=== PATIENT | female | born 1960 | race Caucasian/White ===

== ENCOUNTER 2020-07-29 06:29 | Outpatient (REF) | payer BC, SELFPAY ==
[2020-07-29 11:29] LABS: Hematocrit 42.7 % (37-47); Hemoglobin 13.9 g/dl (12.0-16.0); Mean Corpuscular HGB Conc 32.6 g/dl (31.0-35.0); Mean Corpuscular Hemoglobin 31.4 pg (27.0-33.0); Mean Corpuscular Volume 96.4 fL (80-98); Mean Platelet Volume 9.8 fL (9.4-12.3); Platelet Count 196 X10*3/uL (160-400); Red Blood Count 4.43 X10*6/uL (4.20-5.50); Red Cell Distribution Width 11.5 % (11.0-16.0); White Blood Count 3.6 X10*3/uL (4.8-10.8)
[2020-07-29 11:37] LABS: Glucose Urine UA NEG (NEG); Leukocyte Esterase Urine NEG (NEG); Nitrite Urine NEG (NEG); PH 5.5 (5.0-8.0); Specific Gravity - Urine >= 1.030 (1.005-1.025); Urine Blood NEG (NEG); Urine Ketones NEG (NEG); Urine Protein NEG (NEG-TRACE)
[2020-07-29 11:39] LABS: Appearance Urine CLEAR; Color Urine YELLOW
[2020-07-29 11:44] LABS: Alanine Aminotransferase 27 U/L (0-31); Albumin Level 4.2 g/dL (3.5-5.0); Alkaline Phosphatase 94 U/L (39-117); Anion Gap 12 (12-20); Aspartate Amino Transferase 23 U/L (5-31); Bilirubin Total 0.8 mg/dL (0.0-1.0); Blood Urea Nitrogen 18 mg/dL (9-16); Calcium 8.6 mg/dL (8.4-10.2); Carbon Dioxide 27 mmol/L (22-29); Chloride 106 mmol/L (96-108); Cholesterol 177 mg/dL; Estimated Glomerular Filt Rate > 60; Glucose Fasting 93 mg/dL (60-99); HDL Cholesterol 86 mg/dL; LDL Cholesterol Calculated 83 mg/dl; Potassium 4.3 mmol/l (3.3-5.1); Sodium 141 mmol/L (135-145); Total Protein 6.5 g/dL (6.5-8.0); Triglycerides 42 mg/dL
[2020-07-29 12:09] LABS: Thyroid Stimulating Hormone 1.14 mIU/mL (0.32-4.0); Vitamin D 25-OH Total 40.7 ng/mL (>30)
== END 2020-07-29 06:30 | disposition home or self-care (01) ==
LOC: HO.HMGCLDS 06:29
PROVIDERS: PCP Internal Medicine; Visit Provider Internal Medicine
DX: Z00.00 Encounter for general adult medical examination without abnormal findings (principal); J45.909 Unspecified asthma, uncomplicated; E78.2 Mixed hyperlipidemia; E55.9 Vitamin D deficiency, unspecified
CPT/HCPCS: 36415; 80053; 80061; 81003; 82306; 84443; 85027

== ENCOUNTER 2020-08-20 09:31 | Outpatient (REF) | payer BC, SELFPAY ==
--- NOTE | 2020-08-20 09:34 | MM_ITS ---
EXAMINATION: MM SCREENING DIGITAL BREAST TOMOSYNTHESIS, BILATERAL CLINICAL INFORMATION: Screening. Asymptomatic. The lifetime risk of breast cancer based on the Tyrer-Cuzick Model is 5%. COMPARISON: Mammography: 07/28/2018, 08/21/2017 TECHNIQUE: Digital breast tomosynthesis is performed in both the craniocaudal and mediolateral oblique views along with computer-aided detection (CAD). Synthesized 2D images are generated from the tomosynthesis. Additional right exaggerated CC view is provided. FINDINGS: There are scattered areas of fibroglandular density (ACR BI-RADS breast composition Category b). There are no significant masses, abnormal calcifications, or other abnormalities. The axilla and skin contours are unremarkable. MM/MM tomosynthesis screening BI IMPRESSION: No mammographic evidence of malignancy. ASSESSMENT: BI-RADS 1: Negative RECOMMENDATION: Routine annual mammography screening. This patient's information was entered into a reminder system with a target due date for their next mammogram.
== END 2020-08-20 09:32 | disposition home or self-care (01) ==
LOC: HO.MAMMO 09:31
PROVIDERS: PCP Internal Medicine; Visit Provider Internal Medicine
DX: Z12.31 Encounter for screening mammogram for malignant neoplasm of breast (principal)
CPT/HCPCS: 77063; 77067

== ENCOUNTER 2021-02-16 11:00 | Outpatient (RCR) | payer BC, SELFPAY ==
--- NOTE | 2021-02-04 11:56 | MHC.PT.EP ---
[facility] [place] Office [place] Office [place] Office [address] Yesi Marquez [address] [phone] F: [phone] F: [phone] F: [phone] F: [phone] Physical Therapy Plan of Care Date of Evaluation: Date of Surgery: NA Diagnosis: Low back pain Assessment: 60 year old female referred for low back pain . Pt reports of having sudden of pain on R SI region about 3 weeks back. She denies any trauma or fall. On PT examination she presented with TTP over R PSIS, altered pelvic symmetry, 3/10 pain in R groin with twisting motion, decreased ROM, decreased muscle strength, altered posture and gait. She would benefit from PT to address the aforementioned impairments so as to increase tolerance to twisting, bending, walking, playing with her grand children, driving and returning to [facility]. Frequency and Duration: The patient will be seen 2/week for 5 weeks Short Term Goals: 1. Pt will have 50% decrease in pain which will increase her tolerance to sitting and bending in 2 weeks. 2. Pt will be able to move her trunk through all planes of motion without pain which will enable her to drive in 3 weeks. [employer] Goals: 1. Pt will demonstrate an increase in muscle strength by 1 grade which will enable her to perform all her ADLS without fear of injuring her back in 4 weeks. 2. Pt will be independent with HEPS for symptom management and maintenance following d/c in 5 weeks. Treatment Plan: Modalities to reduce pain, spasms and effusion. Manual therapy to restore motion and function. Therapeutic exercise to improve strength and flexibility. Neuromuscular re-education for posture and balance. Therapeutic activities to return to functional activities of daily living. Electronically signed by: Diane Farias, PT, DPT Please sign and return to therapist. Thank you for your referral.
--- NOTE | 2021-03-04 12:25 | MHC.PT.DC ---
[facility] [place] Office [place] Office [place] Office [address] Yesi Marquez [address] [phone] F: [phone] F: [phone] F: [phone] F: [phone] Physical Therapy Discharge Report Diagnosis: Low back pain Date of Surgery: NA Date of Evaluation: 02/04/21 Date of Discharge: 03/04/21 Treatments to Date: 3 Cancellations to Date: 0 No Shows to Date: 0 Discharge Status: Achieved Goals Improved Function Independent with HEP Discharge Summary: Andreia completed 3 visits of PT. She was pain free after 3 visits. She was independent with all her HEPs and requested d/c from therapy. She has therefore been d/c from therapy. Electronically signed by: Diane Farias, PT, DPT Please sign and return to therapist. Thank you for your referral.
== END 2021-03-04 12:35 | disposition other institution (70) ==
LOC: HO.PT 11:00
PROVIDERS: PCP Internal Medicine; Visit Provider Internal Medicine
DX: M54.5 Low back pain (principal)
CPT/HCPCS: 97110; 97112; 97140; 97161

== ENCOUNTER 2021-04-19 | Outpatient (REF) | payer BC, SELFPAY | END 2021-04-19 00:01 | disposition home or self-care (01) | LOC: HO.LNP | PROVIDERS: Visit Provider Nurse Practitioner Family | DX: N39.0 Urinary tract infection, site not specified (principal) | CPT/HCPCS: 87086; 87088; 87186 ==

== ENCOUNTER 2021-05-31 11:19 | Outpatient (REF) | payer BC, SELFPAY | END 2021-05-31 11:20 | disposition home or self-care (01) | LOC: HO.LNP 11:19 | PROVIDERS: Visit Provider Hospitalist | DX: R30.0 Dysuria (principal) | CPT/HCPCS: 87086 ==

== ENCOUNTER 2021-06-05 06:52 | Outpatient (REF) | payer BC, SELFPAY ==
[2021-06-05 11:46] LABS: MANUAL DIFF FLAG NO
[2021-06-05 11:55] LABS: Glucose Urine UA NEG (NEG); Leukocyte Esterase Urine NEG (NEG); Specific Gravity - Urine 1.015 (1.005-1.025); Urine Blood NEG (NEG); Urine Ketones NEG (NEG); Urine Protein TRACE MG/DL (NEG-TRACE)
[2021-06-05 12:02] LABS: Basophils Percent Auto 0.4 % (0-2); Eosinophils Absolute Auto 0.1 X10*3/uL (0.0-0.4); Eosinophils Percent Auto 2.1 % (0-4); Hematocrit 42.6 % (37-47); Hemoglobin 14.2 g/dl (12.0-16.0); Lymphocytes Absolute Auto 0.9 X10*3/uL (1.2-4.9); Lymphocytes Percent Auto 30.2 % (20-40); Mean Corpuscular HGB Conc 33.3 g/dl (31.0-35.0); Mean Corpuscular Hemoglobin 31.5 pg (27.0-33.0); Mean Corpuscular Volume 94.5 fL (80-98); Mean Platelet Volume 9.8 fL (9.4-12.3); Monocytes Absolute Auto 0.2 X10*3/uL (0.1-1.2); Monocytes Percent Auto 8.1 % (2-11); Neutrophils Absolute Auto 1.7 X10*3/uL (2.0-8.3); Neutrophils Percent Auto 59.2 % (45-73); Platelet Count 195 X10*3/uL (160-400); Red Blood Count 4.51 X10*6/uL (4.20-5.50); Red Cell Distribution Width 11.5 % (11.0-16.0); White Blood Count 2.9 X10*3/uL (4.8-10.8)
[2021-06-05 12:08] LABS: Appearance Urine HAZY; Color Urine DARK YELLOW; UACC Culture Trigger NO
[2021-06-05 12:09] LABS: Nitrite Urine NEG (NEG)
[2021-06-05 12:36] LABS: Cholesterol 191 mg/dL; HDL Cholesterol 84 mg/dL; LDL Cholesterol Calculated 99 mg/dl; Triglycerides 41 mg/dL
[2021-06-07 08:58] LABS: Folate 15.4 ng/mL (> or = 4.0); Vitamin B12 302 pg/mL (200-900)
== END 2021-06-05 06:53 | disposition home or self-care (01) ==
LOC: HO.HMGCLDS 06:52
PROVIDERS: PCP Internal Medicine; Visit Provider Internal Medicine
DX: R30.0 Dysuria (principal); D70.9 Neutropenia, unspecified; E78.5 Hyperlipidemia, unspecified; M70.60 Trochanteric bursitis, unspecified hip
CPT/HCPCS: 36415; 80061; 81003; 82607; 82746; 85025

== ENCOUNTER 2021-06-14 10:51 | Outpatient (REF) | payer BC, SELFPAY ==
[2021-06-14 14:07] LABS: Appearance Urine CLEAR; Color Urine YELLOW; Glucose Urine UA NEG (NEG); Leukocyte Esterase Urine NEG (NEG); Nitrite Urine NEG (NEG); Urine Blood NEG (NEG); Urine Ketones NEG (NEG); Urine Protein NEG (NEG-TRACE)
== END 2021-06-14 10:52 | disposition home or self-care (01) ==
LOC: HO.HMGCLDS 10:51
PROVIDERS: PCP Internal Medicine; Visit Provider Internal Medicine
DX: N39.0 Urinary tract infection, site not specified (principal)
CPT/HCPCS: 81003

== ENCOUNTER 2021-06-14 14:12 | Outpatient (REF) | payer BC, SELFPAY ==
--- NOTE | ~2021-06-14 | US_ITS ---
EXAMINATION: US RETROPERITONEAL COMPLETE (RENAL) CLINICAL INFORMATION: Hematuria and dysuria. COMPARISON: None TECHNIQUE: Real-time imaging of the kidneys and bladder. FINDINGS: RIGHT KIDNEY: 11 x 5.2 x 6.3 cm (SAG x AP x TRV). The kidney is normal in size, contour, and echogenicity. Renal cortical thickness is normal. No calculi or focal parenchymal lesions. No hydronephrosis. LEFT KIDNEY: 12.3 x 5.8 x 0.3 cm (SAG x AP x TRV). The kidney is normal in size, contour, and echogenicity. Renal cortical thickness is normal. There is a 1 cm cyst in the lower pole. There are 2 stones in the lower pole measuring 4 and 6 mm.. No hydronephrosis. BLADDER: Well distended and normal. Bilateral ureteral jets are demonstrated. Prevoid bladder volume is 400 mL. Postvoid bladder volume is 11 mL. US/US retroperitoneal comp IMPRESSION: Left renal stones. Small left renal cyst. Normal right kidney and bladder.
== END 2021-06-14 14:13 | disposition home or self-care (01) ==
LOC: HO.HMGCX 14:12
PROVIDERS: PCP Internal Medicine; Visit Provider Internal Medicine
DX: R31.9 Hematuria, unspecified (principal); R30.0 Dysuria
CPT/HCPCS: 76770

== ENCOUNTER → 2021-06-28 09:41 | Outpatient (BNV) | payer BC, SELFPAY | PROVIDERS: PCP Internal Medicine; Referring Provider Internal Medicine; Visit Provider Internal Medicine Medical Oncology | DX: D72.819 Decreased white blood cell count, unspecified (principal) | CPT/HCPCS: 99203; 99213 ==

== ENCOUNTER 2021-08-25 06:09 | Outpatient (REF) | payer BC, SELFPAY ==
[2021-08-25 07:44] LABS: Blood Urea Nitrogen 17 mg/dL (9-16); Estimated Glomerular Filt Rate > 60
== END 2021-08-25 06:10 | disposition home or self-care (01) ==
LOC: HO.LAB 06:09
PROVIDERS: PCP Internal Medicine; Visit Provider Urology
DX: R31.0 Gross hematuria (principal)
CPT/HCPCS: 36415; 82565; 84520

== ENCOUNTER 2021-08-25 09:15 | Outpatient (REF) | payer BC, SELFPAY ==
--- NOTE | ~2021-08-25 | CT_ITS ---
EXAMINATION: CT ABDOMEN AND PELVIS WITHOUT AND WITH CONTRAST CLINICAL INFORMATION: Gross hematuria. COMPARISON: Previous renal ultrasound 06/14/2021, MRI of the abdomen 04/23/[address] of the abdomen and pelvis 03/26/2018. TECHNIQUE: Multidetector volumetric imaging was performed of the abdomen and pelvis before and after the IV administration of 85 mL of Omnipaque 350 intravenous contrast. Sagittal and coronal reformatted images were obtained on the technologist's workstation. This CT examination was performed using dose optimization techniques as appropriate, variously including the following: *Automated exposure control *Adjustment of mA and/or kV according to patient size (this includes techniques or standardized protocols for targeted exams where dose is matched to indication/reason for exam; i.e. extremities or head) *Use of iterative reconstruction technique DLP: 858 mGy-cm FINDINGS: LUNG BASES: The visualized lung bases are unremarkable. LIVER, GALLBLADDER, AND BILIARY TREE: The liver is normal in size, shape, and attenuation. No focal hepatic lesion or biliary ductal dilatation is present. The gallbladder has been removed. PANCREAS: Unremarkable. SPLEEN: Unremarkable. ADRENAL GLANDS: Unremarkable. KIDNEYS AND URETERS: The kidneys are normal in size, shape and contour. There are 3 left lower pole renal stones, the largest measures 3 mm. There is a 1 cm cyst in the lower pole of the left kidney. No renal mass or hydronephrosis is seen. There is slight irregularity of the calyces questionable for mild papillary necrosis. The collecting systems are otherwise normal. The ureters are well opacified with excreted contrast and are normal. BLADDER: Unremarkable. GASTROINTESTINAL TRACT: The small and large bowel is unremarkable. The appendix is unremarkable. ABDOMINAL WALL: No significant hernia is appreciated. LYMPH NODES: Normal. VASCULAR: Unremarkable. PELVIC VISCERA: Unremarkable. OSSEOUS STRUCTURES: There are mild degenerative changes of the spine and hip joints. CT/CT abdomen pelvis wo/w con IMPRESSION: Left renal stones. Left renal cyst. Slight irregularity of the renal calyces questionable for mild papillary necrosis. No collecting system filling defect seen. Fleischner guidelines were followed.
[2021-08-25] MEDS: iohexoL 350 MG/ML 100 ML INFUS..BTL IV (11:36)
== END 2021-08-25 09:16 | disposition home or self-care (01) ==
LOC: HO.CT 09:15
PROVIDERS: Visit Provider Physician Assistant Medical
DX: R31.0 Gross hematuria (principal); N20.0 Calculus of kidney; Z90.49 Acquired absence of other specified parts of digestive tract
CPT/HCPCS: 74178; Q9967

== ENCOUNTER 2021-09-23 19:45 | Outpatient (REF) | payer BC, SELFPAY ==
[2021-09-23 19:55] LABS: Appearance Urine CLOUDY; Color Urine YELLOW; Glucose Urine UA 100 MG/DL (NEG); Leukocyte Esterase Urine 2+ (NEG); Nitrite Urine POS (NEG); Specific Gravity - Urine >= 1.030 (1.005-1.025); Urine Blood 3+ (NEG); Urine Ketones 5 MG/DL (NEG); Urine Protein 2+ MG/DL (NEG-TRACE)
[2021-09-23 20:04] LABS: Bacteria Urine 3+ /LPF; RBC Urine TNTC /HPF (0)
== END 2021-09-23 19:46 | disposition home or self-care (01) ==
LOC: HO.LNP 19:45
PROVIDERS: Visit Provider Family Medicine
DX: Z00.00 Encounter for general adult medical examination without abnormal findings (principal); N39.0 Urinary tract infection, site not specified
CPT/HCPCS: 81001; 87086; 87088; 87186

== ENCOUNTER 2021-10-21 06:00 | Outpatient (REF) | payer BC, SELFPAY ==
[2021-10-21 12:02] LABS: Anion Gap 12 (12-20); Blood Urea Nitrogen 17 mg/dL (9-16); Calcium 9.1 mg/dL (8.4-10.2); Carbon Dioxide 26 mmol/L (22-29); Chloride 108 mmol/L (96-108); Estimated Glomerular Filt Rate > 60; Magnesium 2.2 mg/dL (1.6-2.6); Phosphorus 4.3 mg/dL (2.7-4.5); Potassium 4.4 mmol/L (3.3-5.1); Sodium 142 mmol/L (135-145)
[2021-10-21 12:16] LABS: Uric Acid 3.5 mg/dL (2.4-5.7)
[2021-10-22 13:06] LABS: Calcium (PTHI) 8.9 mg/dL (8.6-10.4); PTHI 38 pg/mL (14-64)
== END 2021-10-21 06:01 | disposition home or self-care (01) ==
LOC: HO.HMGCLDS 06:00
PROVIDERS: Visit Provider Urology
DX: N20.0 Calculus of kidney (principal); N20.1 Calculus of ureter
CPT/HCPCS: 36415; 80051; 82310; 82565; 83735; 83970; 84100; 84520; 84550

== ENCOUNTER 2021-10-26 09:13 | Outpatient (REF) | payer BC, SELFPAY ==
--- NOTE | ~2021-10-26 | MM_ITS ---
EXAMINATION: MM SCREENING DIGITAL BREAST TOMOSYNTHESIS, BILATERAL CLINICAL INFORMATION: Screening. Asymptomatic. The lifetime risk of breast cancer based on the Tyrer-Cuzick Model is 11%. COMPARISON: Mammography: 08/20/2020, 07/28/2018, 05/12/2017, 11/07/2015 TECHNIQUE: Digital breast tomosynthesis is performed in both the craniocaudal and mediolateral oblique views along with computer-aided detection (CAD). Synthesized 2D images are generated from the tomosynthesis. FINDINGS: There are scattered areas of fibroglandular density (ACR BI-RADS breast composition Category b). There are no significant masses, abnormal calcifications, or other abnormalities. Parenchymal pattern is similar to prior studies. There is no developing density or architectural abnormality. The axilla and skin contours are unremarkable. No significant changes. MM/MM tomosynthesis screening BI IMPRESSION: No mammographic evidence of malignancy. ASSESSMENT: BI-RADS 1: Negative RECOMMENDATION: Routine annual mammography screening. This patient's information was entered into a reminder system with a target due date for their next mammogram.
== END 2021-10-26 09:14 | disposition home or self-care (01) ==
LOC: HO.MAMMO 09:13
PROVIDERS: PCP Internal Medicine; Visit Provider Internal Medicine
DX: Z12.31 Encounter for screening mammogram for malignant neoplasm of breast (principal)
CPT/HCPCS: 77063; 77067

== ENCOUNTER 2021-12-07 12:25 | Outpatient (REF) | payer BC, SELFPAY ==
--- NOTE | ~2021-12-07 | XR_ITS ---
EXAMINATION: XR HIP, RIGHT CLINICAL INFORMATION: Right hip pain. COMPARISON: Selected images of the CT abdomen and pelvis of 08/25/2021. TECHNIQUE: Two views of the right hip. FINDINGS: Osteoarthritic changes are noted at the right hip joint with narrowing of the medial joint space and mild subarticular irregularity and cystic changes at the hip joint medially as well as small marginal osteophytes along the inferior medial margins of the femoral head and acetabulum. No suspicious lytic or blastic osseous lesions are seen. No evidence of acute fracture or dislocation. XR/XR hip RT min 2V IMPRESSION: [id number] osteoarthritic changes in the medial aspect of the right hip joint. No acute osseous abnormality. Overall, the appearance does not appear to be significantly changed when compared to CT scan of 08/25/2021.
== END 2021-12-07 12:26 | disposition home or self-care (01) ==
LOC: HO.HMGCX 12:25
PROVIDERS: PCP Internal Medicine; Visit Provider Internal Medicine
DX: M25.551 Pain in right hip (principal)
CPT/HCPCS: 73502

== ENCOUNTER 2022-01-11 09:29 | Outpatient (REF) | payer BC, SELFPAY | END 2022-01-11 09:30 | disposition home or self-care (01) | LOC: HO.HMGCLDS 09:29 | PROVIDERS: PCP Internal Medicine; Visit Provider Internal Medicine | DX: E55.9 Vitamin D deficiency, unspecified (principal) | CPT/HCPCS: 36415; 82306 ==

== ENCOUNTER 2022-01-11 10:00 | Outpatient (RCR) | payer BC, SELFPAY ==
--- NOTE | 2021-11-23 10:52 | MHC.PT.EP ---
[facility] [place] Office [place] Office [place] Office [address] Yesi Marquez [address] [phone] F: [phone] F: [phone] F: [phone] F: [phone] Physical Therapy Plan of Care Date of Evaluation: Date of Surgery: Diagnosis: This is a 61 yo female presenting to skilled PT with a script for pain in R hip Assessment: This is a 61 yo female presenting to skilled PT with a script for pain in R hip. Patient comes to PT with a referral from the walk-in clinic reporting R hip pain and decreased function ongoing for about a few weeks now that occurred insidiously. She reports that she has had therapy for this in the past and it was helpful (this was at least a year ago). Pain increases with transfers into standing, bending and twisting. She reports that it feels like her hip is out of the joint or going to come out of the joint . The walk in clinic pulled her leg and provided her with prednisone which has not improved her symptoms as of yet. She also reports that she has a long history of back issues/pain that may contribute to her symptoms. Pain at eval is located R hip/groin. Pain is sharp and achy. Assessment reveals pain that ranges up to an 8/10. She demos decreased hip and RLE ROM, decreased hip and glut as well as core strength, impaired gait pattern with compensatory weight shifting and weight bearing positions, impaired lumbar and hip joint mobility as well as gross functional decline with transfers, ambulating and functional squatting. She is a good candidate for skilled PT 2x/wk for 5wks. Frequency and Duration: The patient will be seen 2x/wk for 5wks Short Term Goals: (in 2 weeks) I in HEP Demo proper functional squat form without cues Demo proper SIJ alignment [facility] Goals: (in 5 wks) Perform sit to stand without pain Demo proper lifting techniques from floor, crib height Improve gross strength to at least 4+/5 Report no pain with getting in/out of car, bending or twisting Treatment Plan: Modalities to reduce pain, spasms and effusion. Manual therapy to restore motion and function. Therapeutic exercise to improve strength and flexibility. Neuromuscular re-education for posture and balance. Therapeutic activities to return to functional activities of daily living. Electronically signed by: Darling Saldaña PT Please sign and return to therapist. Thank you for your referral.
--- NOTE | 2022-02-15 10:14 | MHC.PT.DC ---
[facility] [place] Office [place] Office [place] Office [address] Yesi Marquez [address] [phone] F: [phone] F: [phone] F: [phone] F: [phone] Physical Therapy Discharge Report Diagnosis: This is a 61 yo female presenting to skilled PT with a script for pain in R hip Date of Surgery: Date of Evaluation: 11/23/21 Date of Discharge: 02/15/22 Treatments to Date: 13 Cancellations to Date: 0 No Shows to Date: 0 Discharge Status: Achieved Goals Improved Function Independent with HEP Patient Elected to Stop Discharge Summary: Andreia had an ortho appointment and then went on vacation. She cancelled remaining appointments after that however in general she was doing well and much better. Pain was still greatly improved from initial eval. She occasionally has pulling at the hip but it is tolerable and she is I in her HEP. I kept her chart open for 30 days and then DC'd as we have not heard from her. DC to HEP Electronically signed by: Darling Saldaña, PT Please sign and return to therapist. Thank you for your referral.
== END 2022-02-15 10:14 | disposition home or self-care (01) ==
LOC: HO.PTCHIC 10:00
PROVIDERS: PCP Internal Medicine; Visit Provider Internal Medicine
DX: M25.551 Pain in right hip (principal)
CPT/HCPCS: 97110; 97140; 97162

== ENCOUNTER 2022-06-16 09:47 | Outpatient (REF) | payer BC, SELFPAY ==
--- NOTE | ~2022-06-16 | US_ITS ---
EXAMINATION: US RETROPERITONEAL LIMITED (RENAL ONLY) CLINICAL INFORMATION: Kidney stone. COMPARISON: Renal ultrasound 06/14/2021. TECHNIQUE: Real-time imaging of the kidneys. FINDINGS: RIGHT KIDNEY: 11.2 x 4.5 x 5.0 cm (SAG x AP x TRV). The kidney is normal in size, contour, and echogenicity. Renal cortical thickness is normal. No calculi or focal parenchymal lesions. No hydronephrosis. LEFT KIDNEY: 11.9 x 5.0 x 4.9 cm (SAG x AP x TRV). The kidney is normal in size, contour, and echogenicity. Renal cortical thickness is normal. No hydronephrosis. Benign-appearing 9 mm renal cyst, no imaging follow-up recommended. 4 mm nonobstructing lower pole renal stone similar to prior previously 4 mm. New 3 mm nonobstructing lower pole renal stone. A previously seen larger 6 mm renal stone is no longer identified. US/US renal BI IMPRESSION: Nonobstructing left renal stones, as detailed above, one new from prior and one that was previously seen is no longer identified.
== END 2022-06-16 09:48 | disposition home or self-care (01) ==
LOC: HO.HMGCX 09:47
PROVIDERS: PCP Internal Medicine; Visit Provider Physician Assistant
DX: N20.0 Calculus of kidney (principal)
CPT/HCPCS: 76775

== ENCOUNTER 2022-09-08 08:28 | Outpatient (REF) | payer BC, SELFPAY ==
--- NOTE | ~2022-09-08 | XR_ITS ---
EXAMINATION: XR CHEST CLINICAL INFORMATION: Acute bronchitis. COMPARISON: 10/04/2019 chest radiographs. TECHNIQUE: 2 views of the chest were obtained. FINDINGS: No significant abnormality is noted involving the heart, lungs, mediastinum, bony thorax or soft tissues. XR/XR chest 2V IMPRESSION: No acute cardiopulmonary process.
[2022-09-08 12:27] LABS: Influenza A PCR POSITIVE (Negative); Influenza B PCR NEGATIVE (Negative); Resp Syncy Virus RNA Qual PCR NEGATIVE (Negative); SARS COV2 PCR INHOUSE NEGATIVE (Negative)
== END 2022-09-08 08:29 | disposition home or self-care (01) ==
LOC: HO.HMGCX 08:28
PROVIDERS: PCP Internal Medicine; Visit Provider Internal Medicine
DX: Z20.822 Contact with and (suspected) exposure to COVID-19 (principal); J20.9 Acute bronchitis, unspecified; R09.89 Other specified symptoms and signs involving the circulatory and respiratory systems
CPT/HCPCS: 0241U; 71046

== ENCOUNTER 2022-09-22 06:08 | Outpatient (REF) | payer BC, SELFPAY ==
[2022-09-22 11:12] LABS: MANUAL DIFF FLAG NO
[2022-09-22 11:28] LABS: Basophils Percent Auto 0.5 % (0-2); Eosinophils Absolute Auto 0.1 X10*3/uL (0.0-0.4); Eosinophils Percent Auto 1.8 % (0-4); Hemoglobin 13.8 g/dl (12.0-16.0); Imm Gran Abs Auto 0.02 X10*3/uL (0.00-0.03); Imm Gran Pct Auto 0.5 % (0.0-0.4); Lymphocytes Absolute Auto 0.9 X10*3/uL (1.2-4.9); Mean Corpuscular HGB Conc 31.4 g/dl (31.0-35.0); Mean Corpuscular Hemoglobin 29.9 pg (27.0-33.0); Mean Corpuscular Volume 95.4 fL (80.0-98.0); Mean Platelet Volume 9.7 fL (9.4-12.3); Monocytes Absolute Auto 0.3 X10*3/uL (0.1-1.2); Monocytes Percent Auto 6.8 % (2-11); Neutrophils Absolute Auto 3.1 x10*3/uL (2.0-8.3); Neutrophils Percent Auto 70.4 % (45-73); Platelet Count 193 X10*3/uL (160-400); Red Blood Count 4.61 X10*6/uL (4.20-5.50); Red Cell Distribution Width 11.9 % (11.0-16.0); White Blood Count 4.4 X10*3/uL (4.8-10.8)
[2022-09-22 11:56] LABS: Alanine Aminotransferase 20 U/L (0-31); Albumin Level 3.9 g/dL (3.5-5.0); Alkaline Phosphatase 99 U/L (39-117); Anion Gap 11 (12-20); Aspartate Amino Transferase 20 U/L (5-31); Bilirubin Total 0.7 mg/dL (0.0-1.0); Blood Urea Nitrogen 14 mg/dL (9-16); Calcium 8.9 mg/dL (8.4-10.2); Carbon Dioxide 28 mmol/L (22-29); Chloride 109 mmol/L (96-108); Cholesterol 197 mg/dL; Estimated Glomerular Filt Rate > 60; Glucose Fasting 89 mg/dL (60-99); HDL Cholesterol 83 mg/dL; LDL Cholesterol Calculated 102 mg/dl; Potassium 4.6 mmol/L (3.3-5.1); Sodium 143 mmol/L (135-145); TSH reflex Free T4 1.41 uIU/mL (0.32-4.0); Total Protein 6.1 g/dL (6.5-8.0); Triglycerides 64 mg/dL
[2022-09-22 13:34] LABS: Anion Gap 13 (12-20); Blood Urea Nitrogen 15 mg/dL (9-16); Calcium 8.9 mg/dL (8.4-10.2); Carbon Dioxide 28 mmol/L (22-29); Chloride 108 mmol/L (96-108); Estimated Glomerular Filt Rate > 60; Potassium 4.6 mmol/L (3.3-5.1); Sodium 144 mmol/L (135-145); Uric Acid 4.2 mg/dL (2.4-5.7)
[2022-09-25 13:39] LABS: Calcium (PTHI) 8.8 mg/dL (8.6-10.4); PTHI 49 pg/mL (16-77)
== END 2022-09-22 06:09 | disposition home or self-care (01) ==
LOC: HO.HMGCLDS 06:08
PROVIDERS: Absent Provider Internal Medicine Nephrology; PCP Internal Medicine; Visit Provider Internal Medicine
DX: Z00.00 Encounter for general adult medical examination without abnormal findings (principal); D70.9 Neutropenia, unspecified; E78.5 Hyperlipidemia, unspecified; N20.0 Calculus of kidney
CPT/HCPCS: 36415; 80051; 80053; 80061; 82310; 82565; 83970; 84443; 84520; 84550; 85025

== ENCOUNTER 2022-11-02 09:10 | Outpatient (REF) | payer BC, SELFPAY ==
--- NOTE | ~2022-11-02 | MM_ITS ---
EXAMINATION: MM SCREENING DIGITAL BREAST TOMOSYNTHESIS, BILATERAL CLINICAL INFORMATION: Screening. Asymptomatic. The lifetime risk of breast cancer based on the Tyrer-Cuzick Model is 6%. COMPARISON: Mammography: 10/26/2021, 08/20/2020, 07/28/2018 TECHNIQUE: Digital breast tomosynthesis is performed in both the craniocaudal and mediolateral oblique views along with computer-aided detection (CAD). Synthesized 2D images are generated from the tomosynthesis. Additional right MLO view is provided. FINDINGS: There are scattered areas of fibroglandular density (ACR BI-RADS breast composition Category b). There are no significant masses, abnormal calcifications, or other abnormalities. No architectural abnormality or developing density or significant change from prior studies. The axilla are unremarkable. MM/MM tomosynthesis screening BI IMPRESSION: No mammographic evidence of malignancy. ASSESSMENT: BI-RADS 1: Negative RECOMMENDATION: Routine annual mammography screening. This patient's information was entered into a reminder system with a target due date for their next mammogram.
== END 2022-11-02 09:11 | disposition home or self-care (01) ==
LOC: HO.MAMMO 09:10
PROVIDERS: PCP Internal Medicine; Visit Provider Internal Medicine
DX: Z12.31 Encounter for screening mammogram for malignant neoplasm of breast (principal)
CPT/HCPCS: 77063; 77067

== ENCOUNTER 2022-11-18 14:23 | Outpatient (REF) | payer BC, SELFPAY ==
[2022-11-18 15:08] LABS: Influenza A PCR NEGATIVE (Negative); Influenza B PCR NEGATIVE (Negative); Resp Syncy Virus RNA Qual PCR NEGATIVE (Negative); SARS COV2 PCR INHOUSE NEGATIVE (Negative)
== END 2022-11-18 14:24 | disposition home or self-care (01) ==
LOC: HO.LNP 14:23
PROVIDERS: Visit Provider Internal Medicine
DX: Z20.822 Contact with and (suspected) exposure to COVID-19 (principal); R09.89 Other specified symptoms and signs involving the circulatory and respiratory systems
CPT/HCPCS: 0241U

== ENCOUNTER 2023-04-24 11:49 | Outpatient (REF) | payer BC, SELFPAY ==
[2023-04-24 13:46] LABS: Anion Gap 12 (12-20); Blood Urea Nitrogen 16 mg/dL (9-16); Calcium 9.4 mg/dL (8.4-10.2); Carbon Dioxide 29 mmol/L (22-29); Chloride 106 mmol/L (96-108); Estimated Glomerular Filt Rate > 60; Potassium 4.4 mmol/L (3.3-5.1); Sodium 143 mmol/L (135-145)
== END 2023-04-24 11:50 | disposition home or self-care (01) ==
LOC: HO.LAB 11:49
PROVIDERS: PCP Internal Medicine; Visit Provider Internal Medicine Nephrology
DX: N20.0 Calculus of kidney (principal)
CPT/HCPCS: 36415; 80051; 82310; 82565; 84520

== ENCOUNTER 2023-08-30 12:17 | Outpatient (AMB) | payer BC, SELFPAY ==
--- NOTE | 2023-08-30 12:31 | A.OFFPC_ITS ---
Vital Signs 08/30/23 12:34 Height 5 ft 10 in Weight 192 lb BMI 27.5 BP 120/72 Blood Pressure Location Lt brachial Position Sitting Pulse 70 Pulse Source Pulse Oximeter Pulse Oximetry (%) 96 Oxygen Delivery Method Room Air Intake Visit Reasons: Back issues Intake Note: Pt is here today for a sick visit. Pt c/o lower and upper back pain and R hip pain. Allergies amoxicillin [AMOXICILLIN] Allergy (Severe, Verified 08/30/23 12:38) HIVES clarithromycin Allergy (Severe, Verified 08/30/23 12:38) HIVES erythromycin base [From ERYTHROCIN] Allergy (Severe, Verified 08/30/23 12:38) HIVES ibuprofen [IBUPROFEN] Allergy (Severe, Verified 08/30/23 12:38) ANAPHYLAXIS, difficulty breathing latex [LATEX] Allergy (Severe, Verified 08/30/23 12:38) HIVES levofloxacin [From LEVAQUIN] Allergy (Severe, Verified 08/30/23 12:38) HIVES NSAIDS (Non-Steroidal Anti-Inflamma [NSAIDS (NON-STEROIDAL ANTI-INFLAMMA] Allergy (Severe, Verified 08/30/23 12:38) ANAPHYLAXIS aspirin Allergy (Unknown, Verified 08/30/23 12:38) breathing difficulty azithromycin Allergy (Unknown, Verified 08/30/23 12:38) uncoded codeine [CODEINE] Allergy (Unknown, Verified 08/30/23 12:38) RASH naproxen [Aleve] Allergy (Unknown, Verified 08/30/23 12:38) throat closes up and itch nut - unspecified [NUTS] Allergy (Unknown, Verified 01/26/23 12:52) ANAPHYLAXIS sulfamethoxazole [From BACTRIM] Allergy (Unknown, Verified 08/30/23 12:38) HIVES trimethoprim [From BACTRIM] Allergy (Unknown, Verified 08/30/23 12:38) HIVES arythromycin Allergy (Unknown, Uncoded 08/30/23 12:38) uncoded Medication List - Last Reconciled 08/30/23 by Neida James MD acetaminophen 500 mg PO Q6H PRN albuterol sulfate 90 mcg/actuation 2 puffs PO Q4H PRN albuterol sulfate 1.25 mg (3 mL) inhalation TID 30 days albuterol sulfate 2.5 mg inhalation TID PRN baclofen 10 mg PO BEDTIME budesonide 0.25 mg (2 mL) inhalation BID cetirizine (Zyrtec) 10 mg PO DAILY epinephrine (EpiPen) 0.3 mg (0.3 mL) IM Q10M PRN ergocalciferol (vitamin D2) 1,250 mcg PO QWEEK pravastatin 20 mg PO DAILY prednisone 4 TABL QD X 3 DAYS, THEN 3 TABL QD X 3 DAYS, THEN 2 TABL QD X 3DAYS, THEN1 QD orally daily; Tobacco use date assessed: 08/30/23 Dental Screening Dental Screen Date: 08/30/23 Did you have a dental visit in the last 12 months?: Yes Did you have a dental problem in the last 6 months where you did not have access to dental care?: No Was dental information given to patient?: Patient has dentist HPI Back issues HPI Details Pt presents c/o recurrent LBP and R hip worse worse for the last 2 days after playing soccer with her grandchildren. Patient denies pain radiating to right lower extremity weakness or numbness in extremities or change in bowel or bladder function. Patient has been doing lower back stretching on and off but not regularly. She had physical therapy in the past with good results. Patient has been under lot of stress helping out with her grandchildren and her mother who lives at the [facility] will have melanoma surgery. [facility] Medical History (Updated 08/30/23 @ 13:11 by Neida James MD) Right hip pain Vitamin D deficiency Hematuria Dysuria Lower back pain Trochanteric bursitis Neutropenia Hyperlipidemia FH: cholecystectomy Asthma Anxiety GERD (gastroesophageal reflux disease) Failed back syndrome Surgical History H/O colonoscopy No pertinent past surgical history Family History Father CVD (cardiovascular disease) Diabetes mellitus Hx of CABG Mother HTN (hypertension) Hyperlipidemia Unknown family medical history Social History Household Members: Spouse Housing: House Are you a primary care process manager to a significant other at home: No Do you presently have visiting nurse or other home services: No Alcohol intake: current Alcohol intake frequency: holidays/special occasions only Patient Tobacco Use Status: Never used Tobacco e-Cigarette/Vaping Use: Never Used service: No Current occupational status: retired Cognitive needs: No Hearing needs: No Vision needs: Yes Questionnaire Thrive Questionnaire Date Thrive assessed: 11/22/22 YULIA-7 AMB Questionnaire YULIA-7 Date YULIA - 7 assessed: 11/22/22 Source: Developed by Drs. Tu Lu, Nazia Brand, Dean Turner and colleagues, with an educational chapin from [employer]. Review of Systems Const All systems reviewed & are unremarkable except as noted in HPI and below Reports no additional complaints Eyes Reports no additional complaints ENT Reports no additional complaints Card Reports no additional complaints Resp Reports no additional complaints GI Reports no additional complaints Physical exam (Primary Care) Vital Signs: Last Vital Signs Pulse 70 08/30/23 12:34 BP 120/72 08/30/23 12:34 Pulse Ox 96 08/30/23 12:34 Oxygen Delivery Method Room Air 08/30/23 12:34 BMI result Body Mass Index 27.5 Tobacco/Smoking Status: Tobacco use Status Tobacco use date assessed 08/30/23 08/30/23 12:39 Patient Tobacco Use Status Never used Tobacco 08/30/23 12:39 e-Cigarette/Vaping Use Never Used 08/30/23 12:31 Thrive Assessment: Date of Thrive Assessment Date Thrive assessed 11/22/22 08/30/23 12:31 HENMT Head: Yes normal to inspection Eyes General: appearance normal, both eyes and all related structures Neck Neck: Yes supple Resp Effort & Inspection: normal respiratory effort Auscultation: clear to auscultation bilaterally Cardio Rhythm: regular rhythm Heart sounds: S1 normal heart sound present and S2 normal heart sound present Back/Spine/Pelvis Other: Paraspinal tenderness left more than right in the lower lumbar region, SI joint tenderness left more than right, slightly decreased range of motion of the right hip, motor strength 5/5 bilaterally deep tendon reflexes 2+ bilaterally Assessment and Plan Assessment & Plan (1) Chronic bilateral low back pain: Code(s): M54.50 - Low back pain, unspecified; G89.29 - Other chronic pain Plan: Prednisone taper and baclofen are prescribed , patient will schedule an appointment with physical therapy closer to home (2) Right hip pain: Code(s): M25.551 - Pain in right hip Plan: As above Orders: Orders PT Evaluation and Treatment Today G89.29 - Other chronic pain, M25.551 - Pain in right hip, M54.50 - Low back pain, unspecified Medications: New prednisone 4 TABL QD X 3 DAYS, THEN 3 TABL QD X 3 DAYS, THEN 2 TABL QD X 3DAYS, THEN1 QD orally daily; 30 tabs 0RF baclofen 10 mg PO BEDTIME 20 tabs 0RF Coding Level of Care Code Est Pt Level 3 (67056) Diagnoses Chronic bilateral low back pain M54.50; G89.29 Right hip pain M25.551
[2023-08-30 12:34] VITALS: BP 120/72; PULSE 70; O2SAT 96; BMI 27.5
== END 2023-08-30 13:26 | disposition home or self-care (01) ==
PROVIDERS: PCP Internal Medicine; Visit Provider Internal Medicine
DX: M54.50 Low back pain, unspecified (principal); G89.29 Other chronic pain; M25.551 Pain in right hip
CPT/HCPCS: 99213

== ENCOUNTER 2023-10-03 12:41 | Outpatient (AMB) | payer BC, SELFPAY ==
[2023-10-03 12:51] VITALS: BP 118/72; PULSE 69; O2SAT 99; BMI 28.6
--- NOTE | 2023-10-03 12:51 | A.OFFPC_ITS ---
Vital Signs 10/03/23 12:51 Height 5 ft 10 in Weight 199 lb BMI 28.6 BP 118/72 Blood Pressure Location Lt brachial Position Sitting Pulse 69 Pulse Source Pulse Oximeter Pulse Oximetry (%) 99 Oxygen Delivery Method Room Air Intake Visit Reasons: Annual PE Intake Note: Pt is here today for PE. Allergies amoxicillin [AMOXICILLIN] Allergy (Severe, Verified 10/03/23 12:54) HIVES clarithromycin Allergy (Severe, Verified 10/03/23 12:54) HIVES erythromycin base [From ERYTHROCIN] Allergy (Severe, Verified 10/03/23 12:54) HIVES ibuprofen [IBUPROFEN] Allergy (Severe, Verified 10/03/23 12:54) ANAPHYLAXIS, difficulty breathing latex [LATEX] Allergy (Severe, Verified 10/03/23 12:54) HIVES levofloxacin [From LEVAQUIN] Allergy (Severe, Verified 10/03/23 12:54) HIVES NSAIDS (Non-Steroidal Anti-Inflamma [NSAIDS (NON-STEROIDAL ANTI-INFLAMMA] Allergy (Severe, Verified 10/03/23 12:54) ANAPHYLAXIS aspirin Allergy (Unknown, Verified 10/03/23 12:54) breathing difficulty azithromycin Allergy (Unknown, Verified 10/03/23 12:54) uncoded codeine [CODEINE] Allergy (Unknown, Verified 10/03/23 12:54) RASH naproxen [Aleve] Allergy (Unknown, Verified 10/03/23 12:54) throat closes up and itch nut - unspecified [NUTS] Allergy (Unknown, Verified 10/03/23 12:54) ANAPHYLAXIS sulfamethoxazole [From BACTRIM] Allergy (Unknown, Verified 10/03/23 12:54) HIVES trimethoprim [From BACTRIM] Allergy (Unknown, Verified 10/03/23 12:54) HIVES arythromycin Allergy (Unknown, Uncoded 10/03/23 12:54) uncoded Medication List - Last Reconciled 10/03/23 by Neida James MD acetaminophen 500 mg PO Q6H PRN albuterol sulfate 90 mcg/actuation 2 puffs PO Q4H PRN albuterol sulfate 1.25 mg (3 mL) inhalation TID 30 days albuterol sulfate 2.5 mg inhalation TID PRN baclofen 10 mg PO BEDTIME budesonide 0.25 mg (2 mL) inhalation BID cetirizine (Zyrtec) 10 mg PO DAILY epinephrine (EpiPen) 0.3 mg (0.3 mL) IM Q10M PRN ergocalciferol (vitamin D2) 1,250 mcg PO QWEEK pravastatin 20 mg PO DAILY Tobacco use date assessed: 10/03/23 Dental Screening Dental Screen Date: 10/03/23 Did you have a dental visit in the last 12 months?: Yes Did you have a dental problem in the last 6 months where you did not have access to dental care?: No Was dental information given to patient?: Patient has dentist HPI Annual PE HPI Details [facility] Medical History Right hip pain Vitamin D deficiency Hematuria Dysuria Lower back pain Trochanteric bursitis Neutropenia Hyperlipidemia FH: cholecystectomy Asthma Anxiety GERD (gastroesophageal reflux disease) Failed back syndrome Surgical History H/O colonoscopy No pertinent past surgical history Family History Father CVD (cardiovascular disease) Diabetes mellitus Hx of CABG Mother HTN (hypertension) Hyperlipidemia Unknown family medical history Social History Household Members: Spouse Housing: House Are you a primary livestock caretaker to a significant other at home: No Do you presently have visiting nurse or other home services: No Alcohol intake: current Alcohol intake frequency: holidays/special occasions only Patient Tobacco Use Status: Never used Tobacco e-Cigarette/Vaping Use: Never Used service: No Current occupational status: retired Cognitive needs: No Hearing needs: No Vision needs: Yes Questionnaire PHQ-9 Over the last 2 weeks, how often have you been bothered by any of the following problems? 1. Little interest or pleasure in doing things: not at all 2. Feeling down, depressed, or hopeless: not at all 3. Trouble falling or staying asleep, or sleeping too much: not at all 4. Feeling tired or having little energy: not at all 5. Poor appetite or overeating: not at all 6. Feeling bad about yourself - or that you are a failure or have let yourself or your family down: not at all 7. Trouble concentrating on things, such as reading the newspaper or watching television: not at all 8. Moving or speaking so slowly that other people could have noticed. Or the opposite - being so fidgety or restless that you have been moving around a lot more than usual: not at all 9. Thoughts that you would be better off or of hurting yourself in some way: not at all Total score: 0 Depression Screening Interpretation: Negative Depression Screening Done: Yes Source: Developed by Drs. Tu Lu, Nazia Brand, Dean Turner and colleagues, with an educational chapin from [employer]. Thrive Questionnaire Date Thrive assessed: 10/03/23 I am a: Patient What is your living situation today?: I have a steady place to live Within the past 12 months, did the food you bought not last and you didn't have the money to get more?: Never true Within the past 12 months, did you worry whether your food would run out before you got money to buy more?: Never true Do you have trouble paying for medicines?: No Do you have trouble getting transportation to medical appointments?: No Do you have trouble paying your heating and electricity bill?: No Do you have trouble taking care of your child, family member or friend?: No Do you have trouble with day-to-day activities such as bathing, preparing meals, shopping, managing finances, etc.?: No Are you currently unemployed and looking for a job?: No Are you interested in more education?: No Please select the resources that you would like help with: None Currently or been in a relationship where the following occur: no concerns reported AUDIT C Alcohol Use Questionnaire (AUDIT-C) 1. How often do you have a drink containing alcohol?: 2-4 times a month 2. How many drinks containing alcohol do you have on a typical day when you are drinking?: 1 or 2 3. How often do you have six or more drinks on one occasion?: Never Total Score: 2 YULIA-7 AMB Questionnaire YULIA-7 Date YULIA - 7 assessed: 10/03/23 Feeling nervous, anxious, or on edge: 1 = Several days Not being able to stop or control worryin = Several days Worrying too much about different things: 1 = Several days Trouble relaxin = Several days Being so restless that it is hard to sit still: 1 = Several days Becoming easily annoyed or irritable: 0 = Not at all Feeling afraid as if something awful might happen: 0 = Not at all Total YULIA-7 score (0-4 normal; 5-9 mild; 10-14 moderate; 15-21 severe): 5 Source: Developed by Drs. Tu Lu, Nazia Brand, Dean Turner and colleagues, with an educational chapin from [employer]. Review of Systems Const All systems reviewed & are unremarkable except as noted in HPI and below Reports no additional complaints Eyes Reports no additional complaints ENT Reports no additional complaints Card Reports no additional complaints Resp Reports no additional complaints GI Reports no additional complaints Reports no additional complaints Physical exam (Primary Care) Vital Signs: Last Vital Signs Pulse 69 10/03/23 12:51 BP 118/72 10/03/23 12:51 Pulse Ox 99 10/03/23 12:51 Oxygen Delivery Method Room Air 10/03/23 12:51 BMI result Body Mass Index 28.6 Tobacco/Smoking Status: Tobacco use Status Tobacco use date assessed 10/03/23 10/03/23 12:57 Patient Tobacco Use Status Never used Tobacco 10/03/23 12:57 e-Cigarette/Vaping Use Never Used 10/03/23 12:57 PHQ-9: PHQ-9 Score PHQ-9: Total score 0 10/03/23 13:59 Depression Screening Interpretation: Negative Thrive Assessment: Date of Thrive Assessment Date Thrive assessed 10/03/23 10/03/23 13:59 Currently or been in a relationship where the following occur: no concerns repor perfecto Const General: no acute distress HENMT Head: Yes normal to inspection Face and sinus: Yes normal facial exam Eyes General: appearance normal, both eyes and all related structures Neck Neck: Yes no lymphadenopathy and Yes supple Resp Effort & Inspection: normal respiratory effort Auscultation: clear to auscultation bilaterally Cardio Rhythm: regular rhythm Heart sounds: S1 normal heart sound present and S2 normal heart sound present GI Inspection: Yes normal to inspection Palpation (GI): Soft to palpation Percussion: Yes normal to percussion Auscultation: normal bowel sounds Assessment and Plan Assessment & Plan (1) Annual physical exam: Code(s): Z00.00 - Encounter for general adult medical examination without abnormal findings Plan: Well-balanced diet and physical activity discussed with the patient. She is up-to-date with the mammogram colonoscopy and Pap smear by window decorator (2) Vitamin D deficiency: Code(s): E55.9 - Vitamin D deficiency, unspecified (3) Hyperlipidemia: Code(s): E78.5 - Hyperlipidemia, unspecified Orders: Orders Vitamin D 25-OH Total Today E55.9 - Vitamin D deficiency, unspecified, Z00.00 - Encounter for general adult medical examination without abnormal findings Comprehensive Echo. Panel Fast 365 Days E78.5 - Hyperlipidemia, unspecified, Z00.00 - Encounter for general adult medical examination without abnormal findings Complete Blood Count Auto Diff 365 Days E78.5 - Hyperlipidemia, unspecified, Z00.00 - Encounter for general adult medical examination without abnormal findings Comprehensive Echo. Panel Fast Today E55.9 - Vitamin D deficiency, unspecified, Z00.00 - Encounter for general adult medical examination without abnormal findings Lipid Panel Today E55.9 - Vitamin D deficiency, unspecified, Z00.00 - Encounter for general adult medical examination without abnormal findings Complete Blood Count Auto Diff Today E55.9 - Vitamin D deficiency, unspecified, Z00.00 - Encounter for general adult medical examination without abnormal findings TSH reflex Free T4 Today E55.9 - Vitamin D deficiency, unspecified, Z00.00 - Encounter for general adult medical examination without abnormal findings Lipid Panel 365 Days E78.5 - Hyperlipidemia, unspecified, Z00.00 - Encounter for general adult medical examination without abnormal findings Coding Level of Care Code New Pt Prev Care 40-64y(83829) Diagnoses Annual physical exam Z00.00 Vitamin D deficiency E55.9 Hyperlipidemia E78.5
== END 2023-10-03 14:46 | disposition home or self-care (01) ==
PROVIDERS: PCP Internal Medicine; Visit Provider Internal Medicine
DX: Z00.00 Encounter for general adult medical examination without abnormal findings (principal); E55.9 Vitamin D deficiency, unspecified; E78.5 Hyperlipidemia, unspecified
CPT/HCPCS: 99386; 99396

== ENCOUNTER 2023-10-04 06:30 | Outpatient (REF) | payer BC, SELFPAY ==
[2023-10-04 11:57] LABS: MANUAL DIFF FLAG NO
[2023-10-04 12:11] LABS: Basophils Percent Auto 0.5 % (0-2); Eosinophils Absolute Auto 0.1 X10*3/uL (0.0-0.4); Eosinophils Percent Auto 3.2 % (0-4); Hematocrit 45.8 % (37.0-47.0); Hemoglobin 14.7 g/dl (12.0-16.0); Imm Gran Abs Auto 0.01 X10*3/uL (0.00-0.03); Imm Gran Pct Auto 0.3 % (0.0-0.4); Lymphocytes Percent Auto 25.4 % (20-40); Mean Corpuscular HGB Conc 32.1 g/dl (31.0-35.0); Mean Corpuscular Hemoglobin 30.7 pg (27.0-33.0); Mean Corpuscular Volume 95.6 fL (80.0-98.0); Mean Platelet Volume 9.4 fL (9.4-12.3); Monocytes Absolute Auto 0.3 X10*3/uL (0.1-1.2); Monocytes Percent Auto 7.9 % (2-11); Neutrophils Absolute Auto 2.4 x10*3/uL (2.0-8.3); Neutrophils Percent Auto 62.7 % (45-73); Platelet Count 260 X10*3/uL (160-400); Red Blood Count 4.79 X10*6/uL (4.20-5.50); Red Cell Distribution Width 11.9 % (11.0-16.0); White Blood Count 3.8 X10*3/uL (4.8-10.8)
[2023-10-04 13:20] LABS: Alanine Aminotransferase 21 U/L (0-31); Alkaline Phosphatase 92 U/L (39-117); Anion Gap 10 (12-20); Aspartate Amino Transferase 22 U/L (5-31); Bilirubin Total 0.7 mg/dL (0.0-1.0); Blood Urea Nitrogen 19 mg/dL (9-16); Calcium 9.2 mg/dL (8.4-10.2); Carbon Dioxide 29 mmol/L (22-29); Chloride 109 mmol/L (96-108); Cholesterol 229 mg/dL (<200); Estimated Glomerular Filt Rate > 60; Glucose Fasting 86 mg/dL (60-99); HDL Cholesterol 83 mg/dL (>40); LDL Cholesterol Calculated 131 mg/dL (<100); Potassium 4.5 mmol/L (3.3-5.1); Sodium 143 mmol/L (135-145); TSH reflex Free T4 1.14 uIU/mL (0.32-4.0); Total Protein 6.8 g/dL (6.5-8.0); Triglycerides 77 mg/dL (<150); Vitamin D 25-OH Total 42.1 ng/mL (>30)
== END 2023-10-04 06:31 | disposition home or self-care (01) ==
LOC: HO.HMGCLDS 06:30
PROVIDERS: PCP Internal Medicine; Visit Provider Internal Medicine
DX: Z00.00 Encounter for general adult medical examination without abnormal findings (principal); E55.9 Vitamin D deficiency, unspecified
CPT/HCPCS: 36415; 80053; 80061; 82306; 84443; 85025

== ENCOUNTER 2023-11-06 09:52 | Outpatient (REF) | payer BC, SELFPAY | END 2023-11-06 09:53 | disposition home or self-care (01) | LOC: HO.MAMMO 09:52 | PROVIDERS: PCP Internal Medicine; Visit Provider Internal Medicine | DX: Z12.31 Encounter for screening mammogram for malignant neoplasm of breast (principal) | CPT/HCPCS: 77063; 77067 ==

== ENCOUNTER → 2023-11-06 10:15 | Outpatient (BNV) | payer BC, SELFPAY | PROVIDERS: PCP Internal Medicine; Visit Provider Radiology Diagnostic Radiology | DX: Z12.31 Encounter for screening mammogram for malignant neoplasm of breast (principal) | CPT/HCPCS: 77063; 77067 ==

== ENCOUNTER 2023-11-16 09:12 | Outpatient (REF) | payer BC, SELFPAY ==
--- NOTE | ~2023-11-16 | XR_ITS ---
EXAMINATION: 1. RADIOGRAPHS LUMBAR SPINE 2. RADIOGRAPHS RIGHT HIP CLINICAL INFORMATION: Low back and right hip pain COMPARISON: Right hip x-rays December 07, [address] abdomen pelvis December 23, 2020 TECHNIQUE: 3 views of the lumbar spine and 2 views of the right hip were obtained. FINDINGS: Lumbar spine: 5 nonrib-bearing lumbar vertebral bodies are visualized. Alignment is within normal limits. Lumbar vertebral body heights are maintained. There is mild narrowing of the L4/5 and L5/S1 disc space heights. Tiny osteophytes are scattered throughout the lumbar spine. Right hip: Pelvic ring is intact. Sacroiliac joints are symmetric. Visualized portion of the proximal right femur demonstrate no fracture. Right femoral head is well-seated within the acetabulum. There is mild narrowing of the right femoral acetabular joint space. Tiny osteophytes noted of the femoral head and acetabulum. XR/XR hip RT w PEL1V IMPRESSION: 1. Mild degenerative changes of the lumbar spine without compression deformity. 2. Mild degenerative changes of the right hip without fracture or dislocation.
--- NOTE | ~2023-11-16 | XR_ITS ---
EXAMINATION: 1. RADIOGRAPHS LUMBAR SPINE 2. RADIOGRAPHS RIGHT HIP CLINICAL INFORMATION: Low back and right hip pain COMPARISON: Right hip x-rays December 07, [address] abdomen pelvis December 23, 2020 TECHNIQUE: 3 views of the lumbar spine and 2 views of the right hip were obtained. FINDINGS: Lumbar spine: 5 nonrib-bearing lumbar vertebral bodies are visualized. Alignment is within normal limits. Lumbar vertebral body heights are maintained. There is mild narrowing of the L4/5 and L5/S1 disc space heights. Tiny osteophytes are scattered throughout the lumbar spine. Right hip: Pelvic ring is intact. Sacroiliac joints are symmetric. Visualized portion of the proximal right femur demonstrate no fracture. Right femoral head is well-seated within the acetabulum. There is mild narrowing of the right femoral acetabular joint space. Tiny osteophytes noted of the femoral head and acetabulum. XR/XR lumbar spine 2-3V IMPRESSION: 1. Mild degenerative changes of the lumbar spine without compression deformity. 2. Mild degenerative changes of the right hip without fracture or dislocation.
== END 2023-11-16 09:13 | disposition home or self-care (01) ==
LOC: HO.HMGCX 09:12
PROVIDERS: PCP Internal Medicine; Visit Provider Internal Medicine
DX: M54.50 Low back pain, unspecified (principal); M25.551 Pain in right hip
CPT/HCPCS: 72100; 73502

== ENCOUNTER 2023-11-17 08:54 | Outpatient (AMB) | payer BC, SELFPAY ==
[2023-11-17 09:24] VITALS: BP 140/90; PULSE 71; TEMP 36.5; O2SAT 96; BMI 28.6
--- NOTE | 2023-11-17 09:24 | MHC.OFFWIV ---
Intake Vital Signs 11/17/23 09:24 Height 5 ft 10 in Weight 199 lb BMI 28.6 BP 140/90 H Blood Pressure Location Lt brachial Position Sitting Pulse 71 Pulse Source Pulse Oximeter Temp 97.7 F Temp Source Temporal Artery Scan Pulse Oximetry (%) 96 Oxygen Delivery Method Room Air Intake Visit Reasons: EP back pain threw it out today Intake Note: pt is here today for back pain threw it out today Patient Tobacco Use Status: Never used Tobacco Allergies amoxicillin [AMOXICILLIN] Allergy (Severe, Verified 11/17/23 09:25) HIVES clarithromycin Allergy (Severe, Verified 11/17/23:25) HIVES erythromycin base [From ERYTHROCIN] Allergy (Severe, Verified 11/17/23:) HIVES ibuprofen [IBUPROFEN] Allergy (Severe, Verified 11/17/23) ANAPHYLAXIS, difficulty breathing latex [LATEX] Allergy (Severe, Verified 11/17/23:) HIVES levofloxacin [From LEVAQUIN] Allergy (Severe, Verified 11/17/23:) HIVES NSAIDS (Non-Steroidal Anti-Inflamma [NSAIDS (NON-STEROIDAL ANTI-INFLAMMA] Allergy (Severe, Verified 11/17/23 09:25) ANAPHYLAXIS aspirin Allergy (Unknown, Verified 11/17/23 09:25) breathing difficulty azithromycin Allergy (Unknown, Verified 11/17/23:) uncoded codeine [CODEINE] Allergy (Unknown, Verified 11/17/23:25) RASH naproxen [Aleve] Allergy (Unknown, Verified 11/17/23 09:25) throat closes up and itch nut - unspecified [NUTS] Allergy (Unknown, Verified 11/17/23:25) ANAPHYLAXIS sulfamethoxazole [From BACTRIM] Allergy (Unknown, Verified 11/17/23:25) HIVES trimethoprim [From BACTRIM] Allergy (Unknown, Verified 11/17/23 09:25) HIVES arythromycin Allergy (Unknown, Uncoded 10/03/23 12:54) uncoded Do you need a note to return to daycare/school/sports/work: No HPI HPI Comments History of Present Illness Details 63 y/o female patient who presents to walk in clinic with c/o Lower back pain. This is a chronic issue, and she has been receiving PT. Pain started yesterday when she went to the mall for a walk/exercise. Reports Spams radiating down to her lower extremities. Denies bowel or bladder issues. She has been putting heat/cold at home and taking Acetaminophen with no relief. [facility] Medical History Right hip pain Vitamin D deficiency Hematuria Dysuria Lower back pain Trochanteric bursitis Neutropenia Hyperlipidemia FH: cholecystectomy Asthma Anxiety GERD (gastroesophageal reflux disease) Failed back syndrome Surgical History H/O colonoscopy No pertinent past surgical history Family History Father CVD (cardiovascular disease) Diabetes mellitus Hx of CABG Mother HTN (hypertension) Hyperlipidemia Unknown family medical history Social History Household Members: Spouse Housing: House Are you a primary complex care nurse practitioner to a significant other at home: No Do you presently have visiting nurse or other home services: No Alcohol intake: current Alcohol intake frequency: holidays/special occasions only Patient Tobacco Use Status: Never used Tobacco e-Cigarette/Vaping Use: Never Used service: No Current occupational status: retired Cognitive needs: No Hearing needs: No Vision needs: Yes Review of Systems Const All systems reviewed & are unremarkable except as noted in HPI and below Physical Exam Vital Signs: Last Vital Signs Temp 97.7 F 11/17/23 09:24 Pulse 71 11/17/23 09:24 BP 140/90 H 11/17/23 09:24 Pulse Ox 96 11/17/23 09:24 Oxygen Delivery Method Room Air 11/17/23 09:24 BMI result Body Mass Index 28.6 Const Orientation/consciousness: patient oriented x3 General: Yes no CVA tenderness Back/Spine/Pelvis Back: no CVA tenderness Cervical Spine: cervical ROM normal Thoracic/Lumbar Spine: thoracic and lumbar spine normal to inspection and thoraco-lumbar ROM normal Pelvis: no pain with anterior-posterior compression Neuro General: patient oriented x3 Gait exam (Neuro): Normal gait present Motor exam (neuro): 5/5 motor strength present throughout Psych Affect: Labile affect present and Anxious affect present Assessment & Plan Assessment & Plan (1) Chronic bilateral low back pain: Code(s): M54.50 - Low back pain, unspecified; G89.29 - Other chronic pain Qualifiers: Sciatica presence: without sciatica Qualified Code(s): M54.50 - Low back pain, unspecified; G89.29 - Other chronic pain Plan: - Continue with PT - Recomm referral to Ortho/Spine - Heat/cold therapy - Low impact exercise. - F/U with PCP. Medications: Refilled baclofen 10 mg PO BEDTIME 10 tabs 0RF G89.29 - Other chronic pain, M54.50 - Low back pain, unspecified Coding Level of Care Code Est Pt Level 3 (90592) Diagnoses Chronic bilateral low back pain without sciatica M54.50; G89.29 Sciatica presence: without sciatica Time Spent (min) 15
== END 2023-11-17 10:12 | disposition home or self-care (01) ==
PROVIDERS: PCP Internal Medicine; Visit Provider Nurse Practitioner Family
DX: M54.50 Low back pain, unspecified (principal); G89.29 Other chronic pain
CPT/HCPCS: 99213

== ENCOUNTER 2023-12-27 07:20 | Day surgery (SDC) | payer BC, SELFPAY ==
[2023-12-25 10:51] VITALS: BMI 26.0
[2023-12-27 07:39] VITALS: BMI 27.5
[2023-12-27 08:02] VITALS: BP 129/71; PULSE 68; RESP 16; TEMP 35.8; O2SAT 97
[2023-12-27] MEDS: Lactated Ringers 1,000 ML 80 ML IVCONT (08:04)
--- NOTE | 2023-12-27 08:04 | P.CONAN_ITS ---
[facility] Active Problems Active Problems: All Active Problems (Updated 12/25/23 @ 10:37 by Lilly Kowalski RN) Chronic bilateral low back pain (Acute) Bronchitis (Acute) Asthma exacerbation (Acute) Sore throat (Acute) Normal pelvic exam (Acute) Postmenopausal (Acute) Annual physical exam (Acute) Acute bronchitis (Acute) Upper respiratory tract infection (Acute) Leukopenia (Acute) Dysuria (Acute) UTI (urinary tract infection) (Acute) Somatic dysfunction of right sacroiliac joint (Acute) Right hip pain (Acute) Asthma (Acute) Vitamin D deficiency (Acute) Hematuria (Acute) Dysuria (Acute) Lower back pain (Acute) Trochanteric bursitis (Acute) Neutropenia (Acute) Hyperlipidemia (Acute) Past Medical History Medical History Kidney stones Vitamin D deficiency Right hip pain Hematuria Dysuria Lower back pain Trochanteric bursitis Neutropenia Hyperlipidemia FH: cholecystectomy Asthma Anxiety GERD (gastroesophageal reflux disease) Failed back syndrome Family History Family History Father CVD (cardiovascular disease) Diabetes mellitus Hx of CABG Mother HTN (hypertension) Hyperlipidemia Unknown family medical history Family history of problems with anesthesia: No Surgical History Surgical History Hx of tonsillectomy Hx of cervical spine surgery History of ERCP History of esophagogastroduodenoscopy (EGD) H/O colonoscopy No pertinent past surgical history History of Problems with Anesthesia: No Social History Social History Household Members: Spouse Housing: House Are you a primary careers adviser to a significant other at home: No Do you presently have visiting nurse or other home services: No Alcohol intake: current Alcohol intake frequency: holidays/special occasions only Patient Tobacco Use Status: Never used Tobacco e-Cigarette/Vaping Use: Never Used Use of substances other than those prescribed or required for medical reasons: No Are you DNR?: No Advance Directives: No Advance Directives Information Provided: Yes service: No Current occupational status: retired Cognitive needs: No Hearing needs: No Vision needs: Yes Meds Allergies Allergy/AdvReac Type Severity Reaction Status Date / Time amoxicillin [AMOXICILLIN] Allergy Severe HIVES Verified 12/27/23 07:45 clarithromycin Allergy Severe HIVES Verified 12/27/23 07:45 erythromycin base Allergy Severe HIVES Verified 12/27/23 07:45 [From ERYTHROCIN] ibuprofen [IBUPROFEN] Allergy Severe ANAPHYLAXIS, Verified 12/27/23 07:45 difficulty breathing latex [LATEX] Allergy Severe HIVES Verified 12/27/23 07:45 levofloxacin [From LEVAQUIN] Allergy Severe HIVES Verified 12/27/23 07:45 NSAIDS (Non-Steroidal Allergy Severe ANAPHYLAXIS Verified 12/27/23 07:45 Anti-Inflamma [NSAIDS (NON-STEROIDAL ANTI-INFLAMMA] aspirin Allergy Unknown breathing Verified 12/27/23 07:45 difficulty azithromycin Allergy Unknown uncoded Verified 12/27/23 07:45 codeine [CODEINE] Allergy Unknown RASH Verified 12/27/23 07:45 naproxen [Aleve] Allergy Unknown throat Verified 11/17/23 09:25 closes up and itch nut - unspecified [NUTS] Allergy Unknown ANAPHYLAXIS Verified 11/17/23 09:25 sulfamethoxazole Allergy Unknown HIVES Verified 11/17/23 09:25 [From BACTRIM] trimethoprim [From BACTRIM] Allergy Unknown HIVES Verified 11/17/23 09:25 arythromycin Allergy Unknown uncoded Uncoded 10/03/23 12:54 Active Medications: Current Medications Lactated Ringer's (Lr) 1,000 mls @ 80 mls/hr IVCONT .[id number] CHUCKY Last Admin: 12/27/23 08:04 Dose: 80 mls/hr Sodium Biphosphate/Sodium Phosphate (Sodium Phosphate,Tillman-Dibasic 133 Ml Enema) 133 ml MI ONCE PRN PRN Reason: Poor Colonoscopy Prep Results Home Medications Medication Instructions Recorded Confirmed Last Taken Type albuterol sulfate 90 mcg/actuation 2 puff PO Q4H PRN muscle spasm 08/30/21 12/25/23 Unknown History aerosol inhaler cetirizine 10 mg tablet (Zyrtec) 10 mg PO DAILY 08/30/21 12/25/23 Unknown History albuterol sulfate 2.5 mg/3 mL 2.5 mg inhalation TID PRN 09/08/22 12/25/23 Unknown History (0.083 %) solution for nebulization Shortness Of Breath Exam Height,Weight and Vital Signs: Height 5 ft 10 in Weight 87.09 kg Last Vital Signs Temp 96.4 F L 12/27/23 08:02 Pulse 68 12/27/23 08:02 Resp 16 12/27/23 08:02 BP 129/71 12/27/23 08:02 Pulse Ox 97 12/27/23 08:02 O2 Del Method Room Air 12/27/23 08:02 Airway Mallampati Class: II TM Dist: >3cm Loose/Missing/Broken Teeth: No Heart: rrr Lungs: cta b/l Assessment and Plan Final Anesthetic Review Family History of Problems with Anesthesia: No History of Problems with Anesthesia: No NPO: Yes ASA Class: II Final Preanesthetic Review: No Changes in Pt Med Stat, Meds/Allgs Chart Reviewed, Consent Obtained/Reviewed and Anes Risks/Benef Reviewed Patient Risk: Intermediate Procedure Risk: Intermediate Anesthetic Plan Anesthetic Plan: MAC: Disposition: Standard PACU
[2023-12-27 10:24] VITALS: BP 119/63; PULSE 60; RESP 16; TEMP 36.9; O2SAT 100
--- NOTE | 2023-12-27 10:27 | P.BOP_ITS ---
Brief Operative Note Date of Service: 12/27/23 Pre-op diagnosis: Screening Post-op diagnosis: other (Diverticulosis) Procedure: Colonoscopy to the cecum and TI Surgeon: Tu Painter MD Anesthesia: MAC Was an Linecasting Machine Keyboard Operator used for this Procedure?: No Estimated blood loss (mL): 0 Pathology: none sent Condition: stable Disposition: PACU
[2023-12-27 10:39] VITALS: BP 124/58; PULSE 51; RESP 16; TEMP 36.9; O2SAT 99
--- NOTE | 2023-12-27 10:49 | OP_ITS ---
DATE OF SERVICE: 12/27/2023 SURGEON: uT Painter MD INDICATIONS: The patient presents for evaluation of colorectal cancer screening. Full consent obtained from her for this, including risks of bleeding and perforation. PREOPERATIVE DIAGNOSIS: Colorectal cancer screening. POSTOPERATIVE DIAGNOSIS: PROCEDURE PERFORMED: Colonoscopy to the cecum and terminal ileum. ESTIMATED BLOOD LOSS: COMPLICATIONS: ANESTHESIA: Medication used; monitored anesthesia care. ASSISTANTS: SPECIMENS: POSTOPERATIVE DIAGNOSES: Colorectal cancer screening, mild diverticulosis, and small internal hemorrhoids. DESCRIPTION OF PROCEDURE: The patient was placed in the left lateral decubitus position. The digital rectal exam revealed no abnormalities. The Olympus video-pediatric colonoscope was entered into the rectum and advanced easily to the cecum. Once in the cecum, I did identify normal-appearing cecal pouch with appendiceal orifice and a normal-appearing ileocecal valve. The terminal ileum was cannulated and appeared normal. The scope was withdrawn back in the colon. The entire cecum and ileocecal valve appeared normal. The scope was slowly withdrawn assessing all mucosal surfaces carefully. Preparation was excellent. I did not visualize any sign of polyps, colitis, nor angiodysplasia. There was a mild amount of sigmoid diverticulosis. In the rectum, the scope was retroflexed visualizing small internal hemorrhoids, but no other pathology. The rectal mucosa appeared normal. Scope was straightened and withdrawn from the patient. She tolerated the procedure well and was returned to recovery area in stable condition. IMPRESSION: 1. Diverticulosis. 2. Internal hemorrhoids. PLAN: Given the negative exam and negative family history, I would recommend a followup colonoscopy in 10 years for further screening. She will otherwise see me on a p.r.n. basis. MD DEMOND Kearney/KATT / [phone]
== END 2023-12-27 11:20 | disposition home or self-care (01) ==
PROVIDERS: PCP Internal Medicine; Visit Provider Internal Medicine
PROC: 0DJD8ZZ Inspection of Lower Intestinal Tract, Via Natural or Artificial Opening Endoscopic (ICD-10-PCS; CPT 45378; principal; 2023-12-27 09:50)
DX: Z12.11 Encounter for screening for malignant neoplasm of colon (principal); K57.30 Diverticulosis of large intestine without perforation or abscess without bleeding; K64.8 Other hemorrhoids; K21.9 Gastro-esophageal reflux disease without esophagitis; E78.5 Hyperlipidemia, unspecified; E16.2 Hypoglycemia, unspecified; N20.0 Calculus of kidney; F41.9 Anxiety disorder, unspecified; J45.909 Unspecified asthma, uncomplicated; Z79.51 Long term (current) use of inhaled steroids; Z79.899 Other long term (current) drug therapy; Z98.890 Other specified postprocedural states; Z90.49 Acquired absence of other specified parts of digestive tract
CPT/HCPCS: 45378; J2704

== ENCOUNTER 2024-02-29 13:48 | Outpatient (AMB) | payer BC, SELFPAY ==
[2024-02-29 14:11] VITALS: BP 128/82; PULSE 67; O2SAT 97; BMI 26.7
--- NOTE | 2024-02-29 14:11 | A.OFFPC_ITS ---
Vital Signs 02/29/24 14:11 Height 5 ft 10 in Weight 186 lb BMI 26.7 BP 128/82 Blood Pressure Location Lt brachial Position Sitting Pulse 67 Pulse Source Pulse Oximeter Pulse Oximetry (%) 97 Oxygen Delivery Method Room Air Intake Visit Reasons: Discuss referrals Allergies amoxicillin [AMOXICILLIN] Allergy (Severe, Verified 02/29/24 14:26) HIVES clarithromycin Allergy (Severe, Verified 02/29/24 14:26) HIVES erythromycin base [From ERYTHROCIN] Allergy (Severe, Verified 02/29/24 14:26) HIVES ibuprofen [IBUPROFEN] Allergy (Severe, Verified 02/29/24 14:26) ANAPHYLAXIS, difficulty breathing latex [LATEX] Allergy (Severe, Verified 02/29/24 14:26) HIVES levofloxacin [From LEVAQUIN] Allergy (Severe, Verified 02/29/24 14:26) HIVES NSAIDS (Non-Steroidal Anti-Inflamma [NSAIDS (NON-STEROIDAL ANTI-INFLAMMA] Allergy (Severe, Verified 02/29/24 14:26) ANAPHYLAXIS aspirin Allergy (Unknown, Verified 02/29/24 14:26) breathing difficulty azithromycin Allergy (Unknown, Verified 02/29/24 14:26) uncoded codeine [CODEINE] Allergy (Unknown, Verified 02/29/24 14:26) RASH naproxen [Aleve] Allergy (Unknown, Verified 02/29/24 14:26) throat closes up and itch nut - unspecified [NUTS] Allergy (Unknown, Verified 02/29/24 14:26) ANAPHYLAXIS sulfamethoxazole [From BACTRIM] Allergy (Unknown, Verified 02/29/24 14:26) HIVES trimethoprim [From BACTRIM] Allergy (Unknown, Verified 02/29/24 14:26) HIVES arythromycin Allergy (Unknown, Uncoded 02/29/24 14:26) uncoded Medication List - Last Reconciled 02/29/24 by Neida James MD albuterol sulfate 90 mcg/actuation 2 puffs PO Q4H PRN albuterol sulfate 2.5 mg inhalation TID PRN cetirizine (Zyrtec) 10 mg PO DAILY pravastatin 20 mg PO DAILY Tobacco use date assessed: 02/29/24 Dental Screening Dental Screen Date: 10/03/23 HPI Discuss referrals HPI Details Pt presents for f/u of persistent LBP radiating to both legs since September. Patient reports paraspinal lower lumbar spine muscle spasm and lower extremities muscle spasm with some relief with Baclofen. Pt has been in PT for a few months. Pt had cortisone injections by [facility] for R SJ and R hip with temporarily relief. Patient reports intermittent urinary incontinence but denies fecal incontinence or saddle numbness or paresthesia. Patient denies lower extremities weakness. [facility] Medical History (Updated 02/29/24 @ 15:25 by Neida James MD) Kidney stones Vitamin D deficiency Right hip pain Hematuria Dysuria Lower back pain Trochanteric bursitis Neutropenia Hyperlipidemia FH: cholecystectomy Asthma Anxiety GERD (gastroesophageal reflux disease) Failed back syndrome Surgical History Hx of tonsillectomy Hx of cervical spine surgery History of ERCP History of esophagogastroduodenoscopy (EGD) H/O colonoscopy No pertinent past surgical history Family History Father CVD (cardiovascular disease) Diabetes mellitus Hx of CABG Mother HTN (hypertension) Hyperlipidemia Unknown family medical history Social History Household Members: Spouse Housing: House Are you a primary day care supervisor to a significant other at home: No Do you presently have visiting nurse or other home services: No Alcohol intake: current Alcohol intake frequency: holidays/special occasions only Patient Tobacco Use Status: Never used Tobacco e-Cigarette/Vaping Use: Never Used service: No Current occupational status: retired Cognitive needs: No Hearing needs: No Vision needs: Yes Questionnaire Thrive Questionnaire Date Thrive assessed: 10/03/23 YULIA-7 AMB Questionnaire YULIA-7 Date YULIA - 7 assessed: 10/03/23 Source: Developed by Drs. Tu Lu, Nazia Brand, Dean Turner and colleagues, with an educational chapin from [employer]. Review of Systems Const All systems reviewed & are unremarkable except as noted in HPI and below Eyes Reports no additional complaints ENT Reports no additional complaints Card Reports no additional complaints Resp Reports no additional complaints GI Reports no additional complaints Reports no additional complaints Musc Reports no additional complaints Physical exam (Primary Care) Vital Signs: Last Vital Signs Pulse 67 02/29/24 14:11 BP 128/82 02/29/24 14:11 Pulse Ox 97 02/29/24 14:11 Oxygen Delivery Method Room Air 02/29/24 14:11 BMI result Body Mass Index 26.7 Tobacco/Smoking Status: Tobacco use Status Tobacco use date assessed 02/29/24 02/29/24 14:29 Patient Tobacco Use Status Never used Tobacco 02/29/24 14:29 e-Cigarette/Vaping Use Never Used 02/29/24 14:11 Thrive Assessment: Date of Thrive Assessment Date Thrive assessed 10/03/23 02/29/24 14:11 Const General: no acute distress Neck Neck: Yes supple Resp Effort & Inspection: normal respiratory effort Auscultation: clear to auscultation bilaterally Cardio Rhythm: regular rhythm Heart sounds: S1 normal heart sound present and S2 normal heart sound present Back/Spine/Pelvis Other: Spinal and paraspinal tenderness in mid lumbar region. DROM in L spine, SLR 45 degrees on the right and 90 degrees on the left, deep tendon reflexes 2+ bilaterally, toe heel walk intact bilaterally Assessment and Plan Assessment & Plan (1) Lumbar stenosis with neurogenic claudication: Code(s): M48.062 - Spinal stenosis, lumbar region with neurogenic claudication Plan: For persistent lumbar spine pain muscle spasm and radiculopathy symptoms despite physical therapy and cortisone injections lumbar spine MRI will be obtained to evaluate for disc herniation. Patient was advised to stop pravastatin for 2 months. (2) Anxiety: Code(s): F41.9 - Anxiety disorder, unspecified Plan: Sertraline 25 for the 1st week then increase to 50 mg will be started. Stress management and mindfulness discussed with the patient. Follow-up in 1 month Orders: Orders MR lumbar spine wo con Today M48.062 - Spinal stenosis, lumbar region with neurogenic claudication Medications: New sertraline 1/2 tabl qd for 1 week, then increase to 1 tabl qd 50 mg PO DAILY 30 tabs 1RF Coding Level of Care Code Est Pt Level 4 (75758) Diagnoses Lumbar stenosis with neurogenic claudication M48.062 Anxiety F41.9
== END 2024-02-29 15:19 | disposition home or self-care (01) ==
PROVIDERS: PCP Internal Medicine; Visit Provider Internal Medicine
DX: M48.062 Spinal stenosis, lumbar region with neurogenic claudication (principal); F41.9 Anxiety disorder, unspecified
CPT/HCPCS: 99214

== ENCOUNTER 2024-04-08 14:01 | Outpatient (AMB) | payer BC, SELFPAY ==
[2024-04-08 14:35] VITALS: BP 120/80; PULSE 71; O2SAT 96; BMI 25.5
--- NOTE | 2024-04-08 14:35 | A.OFFPC_ITS ---
Vital Signs 04/08/24 14:35 Height 5 ft 10 in Weight 178 lb BMI 25.5 BP 120/80 Blood Pressure Location Lt brachial Position Sitting Pulse 71 Pulse Source Pulse Oximeter Pulse Oximetry (%) 96 Oxygen Delivery Method Room Air Intake Visit Reasons: 1 month follow up Intake Note: Pt is here today for her 1mo. f/u Allergies amoxicillin [AMOXICILLIN] Allergy (Severe, Verified 04/08/24 14:36) HIVES clarithromycin Allergy (Severe, Verified 04/08/24 14:36) HIVES erythromycin base [From ERYTHROCIN] Allergy (Severe, Verified 04/08/24 14:36) HIVES ibuprofen [IBUPROFEN] Allergy (Severe, Verified 04/08/24 14:36) ANAPHYLAXIS, difficulty breathing latex [LATEX] Allergy (Severe, Verified 04/08/24 14:36) HIVES levofloxacin [From LEVAQUIN] Allergy (Severe, Verified 04/08/24 14:36) HIVES NSAIDS (Non-Steroidal Anti-Inflamma [NSAIDS (NON-STEROIDAL ANTI-INFLAMMA] Allergy (Severe, Verified 04/08/24 14:36) ANAPHYLAXIS aspirin Allergy (Unknown, Verified 04/08/24 14:36) breathing difficulty azithromycin Allergy (Unknown, Verified 04/08/24 14:36) uncoded codeine [CODEINE] Allergy (Unknown, Verified 04/08/24 14:36) RASH naproxen [Aleve] Allergy (Unknown, Verified 04/08/24 14:36) throat closes up and itch nut - unspecified [NUTS] Allergy (Unknown, Verified 04/08/24 14:36) ANAPHYLAXIS sulfamethoxazole [From BACTRIM] Allergy (Unknown, Verified 04/08/24 14:36) HIVES trimethoprim [From BACTRIM] Allergy (Unknown, Verified 04/08/24 14:36) HIVES arythromycin Allergy (Unknown, Uncoded 04/08/24 14:36) uncoded Medication List - Last Reconciled 04/08/24 by Neida James MD albuterol sulfate 90 mcg/actuation 2 puffs PO Q4H PRN albuterol sulfate 2.5 mg inhalation TID PRN cetirizine (Zyrtec) 10 mg PO DAILY sertraline 50 mg PO DAILY Tobacco use date assessed: 04/08/24 Dental Screening Dental Screen Date: 04/08/24 Did you have a dental visit in the last 12 months?: Yes Did you have a dental problem in the last 6 months where you did not have access to dental care?: No Was dental information given to patient?: Patient has dentist HPI 1 month follow up HPI Details Pt presents for f/u of midback pain. MR showed disc protrusion at Th 11-12, with moderate central canal stenosis. Patient has been exercising and getting physical therapy and walking wearing a back brace. Patient denies lower extremities weakness, change in bowel or bladder function. Anxiety has improved on sertraline. [facility] Medical History (Updated 04/08/24 @ 15:26 by Neida James MD) Kidney stones Vitamin D deficiency Right hip pain Hematuria Dysuria Lower back pain Trochanteric bursitis Neutropenia Hyperlipidemia FH: cholecystectomy Asthma Anxiety GERD (gastroesophageal reflux disease) Failed back syndrome Surgical History Hx of tonsillectomy Hx of cervical spine surgery History of ERCP History of esophagogastroduodenoscopy (EGD) H/O colonoscopy No pertinent past surgical history Family History Father CVD (cardiovascular disease) Diabetes mellitus Hx of CABG Mother HTN (hypertension) Hyperlipidemia Unknown family medical history Social History Household Members: Spouse Housing: House Are you a primary intensive care specialist to a significant other at home: No Do you presently have visiting nurse or other home services: No Alcohol intake: current Alcohol intake frequency: holidays/special occasions only Patient Tobacco Use Status: Never used Tobacco e-Cigarette/Vaping Use: Never Used service: No Current occupational status: retired Cognitive needs: No Hearing needs: No Vision needs: Yes Questionnaire Thrive Questionnaire Date Thrive assessed: 10/03/23 YULIA-7 AMB Questionnaire YULIA-7 Date YULIA - 7 assessed: 10/03/23 Source: Developed by Drs. Tu Lu, Nazia Brand, Dean Turner and colleagues, with an educational chapin from [employer] Review of Systems Const All systems reviewed & are unremarkable except as noted in HPI and below Eyes Reports no additional complaints ENT Reports no additional complaints Card Reports no additional complaints Resp Reports no additional complaints GI Reports no additional complaints Reports no additional complaints Physical exam (Primary Care) Vital Signs: Last Vital Signs Pulse 71 04/08/24 14:35 BP 120/80 04/08/24 14:35 Pulse Ox 96 04/08/24 14:35 Oxygen Delivery Method Room Air 04/08/24 14:35 BMI result Body Mass Index 25.5 Tobacco/Smoking Status: Tobacco use Status Tobacco use date assessed 04/08/24 04/08/24 14:40 Patient Tobacco Use Status Never used Tobacco 04/08/24 14:40 e-Cigarette/Vaping Use Never Used 04/08/24 14:40 Thrive Assessment: Date of Thrive Assessment Date Thrive assessed 10/03/23 04/08/24 14:40 Const General: no acute distress HENOR General nose exam: Normal external nose present Eyes General: appearance normal, both eyes and all related structures Resp Effort & Inspection: normal respiratory effort Auscultation: clear to auscultation bilaterally Cardio Rhythm: regular rhythm Heart sounds: S1 normal heart sound present and S2 normal heart sound present Neuro Cranial nerves: Yes CN's II-XII intact bilaterally Gait exam (Neuro): Normal gait present Motor exam (neuro): 5/5 motor strength present throughout Assessment and Plan Assessment & Plan (1) Thoracic radiculopathy: Comment: 08-13, disc protrusion with moderate central stenosis MR 7 Code(s): M54.14 - Radiculopathy, thoracic region Plan: Referred to neurosurgeon Dr. Caicedo, per patient's request. Continue physical therapy (2) Anxiety: Code(s): F41.9 - Anxiety disorder, unspecified Plan: Continue Zoloft follow-up in 2-3 months Orders: Referrals Neurosurgery Referral M48.04 - Spinal stenosis, thoracic region, M54.14 - Radiculopathy, thoracic region Medications: Changed From sertraline 1/2 tabl qd for 1 week, then increase to 1 tabl qd 50 mg PO DAILY 30 tabs 1RF To sertraline 50 mg PO DAILY 90 tabs 2RF Coding Level of Care Code Est Pt Level 3 (97536) Diagnoses Thoracic radiculopathy M54.14 Anxiety F41.9
== END 2024-04-08 15:24 | disposition home or self-care (01) ==
PROVIDERS: PCP Internal Medicine; Visit Provider Internal Medicine
DX: M54.14 Radiculopathy, thoracic region (principal); F41.9 Anxiety disorder, unspecified
CPT/HCPCS: 99213

== ENCOUNTER 2024-04-20 07:33 | Outpatient (REF) | payer BC, SELFPAY ==
[2024-04-20 11:21] LABS: MANUAL DIFF FLAG NO
[2024-04-20 11:31] LABS: Basophils Percent Auto 0.6 % (0-2); Eosinophils Absolute Auto 0.1 X10*3/uL (0.0-0.4); Eosinophils Percent Auto 2.4 % (0-4); Hematocrit 44.5 % (37.0-47.0); Hemoglobin 14.7 g/dl (12.0-16.0); Imm Gran Abs Auto 0.01 X10*3/uL (0.00-0.03); Imm Gran Pct Auto 0.3 % (0.0-0.4); Lymphocytes Absolute Auto 0.8 X10*3/uL (1.2-4.9); Lymphocytes Percent Auto 25.6 % (20-40); Mean Corpuscular Hemoglobin 31.5 pg (27.0-33.0); Mean Corpuscular Volume 95.5 fL (80.0-98.0); Mean Platelet Volume 10.2 fL (9.4-12.3); Monocytes Absolute Auto 0.3 X10*3/uL (0.1-1.2); Monocytes Percent Auto 9.5 % (2-11); Neutrophils Percent Auto 61.6 % (45-73); Platelet Count 174 X10*3/uL (160-400); Red Blood Count 4.66 X10*6/uL (4.20-5.50); Red Cell Distribution Width 11.9 % (11.0-16.0); White Blood Count 3.3 X10*3/uL (4.8-10.8)
[2024-04-20 11:54] LABS: Alanine Aminotransferase 15 U/L (0-31); Albumin Level 3.9 g/dL (3.5-5.0); Alkaline Phosphatase 88 U/L (39-117); Anion Gap 14 (12-20); Aspartate Amino Transferase 18 U/L (5-31); Bilirubin Total 0.4 mg/dL (0.0-1.0); Blood Urea Nitrogen 15 mg/dL (9-16); Calcium 9.2 mg/dL (8.4-10.2); Carbon Dioxide 23 mmol/L (22-29); Chloride 108 mmol/L (96-108); Estimated Glomerular Filt Rate > 60; Glucose Random 88 mg/dL (60-115); Potassium 4.4 mmol/L (3.3-5.1); Sodium 141 mmol/L (135-145); Total Protein 6.3 g/dL (6.5-8.0)
== END 2024-04-20 07:34 | disposition home or self-care (01) ==
LOC: HO.HMGCLDS 07:33
PROVIDERS: PCP Internal Medicine; Visit Provider Internal Medicine Hypertension Specialist
DX: R31.9 Hematuria, unspecified (principal)
CPT/HCPCS: 36415; 80053; 85025

== ENCOUNTER 2024-04-24 09:19 | Outpatient (AMB) | payer BC, SELFPAY ==
--- NOTE | 2024-04-24 09:34 | HO.NEPHOV ---
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 Accompanied by: Self / Same As Patient Allergies amoxicillin [AMOXICILLIN] Allergy (Severe, Verified 04/24/24 09:38) HIVES clarithromycin Allergy (Severe, Verified 04/24/24 09:38) HIVES erythromycin base [From ERYTHROCIN] Allergy (Severe, Verified 04/24/24 09:38) HIVES ibuprofen [IBUPROFEN] Allergy (Severe, Verified 04/24/24 09:38) ANAPHYLAXIS, difficulty breathing latex [LATEX] Allergy (Severe, Verified 04/24/24 09:38) HIVES levofloxacin [From LEVAQUIN] Allergy (Severe, Verified 04/24/24 09:38) HIVES NSAIDS (Non-Steroidal Anti-Inflamma [NSAIDS (NON-STEROIDAL ANTI-INFLAMMA] Allergy (Severe, Verified 04/24/24 09:38) ANAPHYLAXIS aspirin Allergy (Unknown, Verified 04/24/24 09:38) breathing difficulty azithromycin Allergy (Unknown, Verified 04/24/24 09:38) uncoded codeine [CODEINE] Allergy (Unknown, Verified 04/24/24 09:38) RASH naproxen [Aleve] Allergy (Unknown, Verified 04/24/24 09:38) throat closes up and itch nut - unspecified [NUTS] Allergy (Unknown, Verified 04/24/24 09:38) ANAPHYLAXIS sulfamethoxazole [From BACTRIM] Allergy (Unknown, Verified 04/24/24 09:38) HIVES trimethoprim [From BACTRIM] Allergy (Unknown, Verified 04/24/24 09:38) HIVES arythromycin Allergy (Unknown, Uncoded 04/08/24 14:36) uncoded HPI Comments Details: I had the pleasure of seeing Ivania in follow-up of her nephrolithiasis. When she was in [place] this summer, she had a UTI and had to go to an urgent care center there. She was treated with antibiotics and Pyridium. Prior to the event she had colonoscopy. She was attributing her UTI to the colonoscopy prep. She has not passed any stones since she had seen me last time. She does not have any flank pain, hematuria. She has no history of obstruction from renal stones. She has no history of lithotripsy, no history of hypercalcemia or high uric acid. She does not consume excess sodium or meat in the diet. She keeps up with good mount of fluid intake. Her renal functions have been normal. She has no history of Topamax intake, metabolic acidosis or hypokalemia. She has family history of renal stone disease(grandfather). Currently she feels well [facility] Medical History (Updated 04/24/24 @ 10:04 by Artuor Patterson MD) Kidney stones Vitamin D deficiency Right hip pain Hematuria Dysuria Lower back pain Trochanteric bursitis Neutropenia Hyperlipidemia FH: cholecystectomy Asthma Anxiety GERD (gastroesophageal reflux disease) Failed back syndrome Surgical History Hx of tonsillectomy Hx of cervical spine surgery History of ERCP History of esophagogastroduodenoscopy (EGD) H/O colonoscopy No pertinent past surgical history Family History Father CVD (cardiovascular disease) Diabetes mellitus Hx of CABG Mother HTN (hypertension) Hyperlipidemia Unknown family medical history Social History Household Members: Spouse Housing: House Are you a primary assurance services manager health care to a significant other at home: No Do you presently have visiting nurse or other home services: No Alcohol intake: current Alcohol intake frequency: holidays/special occasions only Patient Tobacco Use Status: Never used Tobacco e-Cigarette/Vaping Use: Never Used service: No Current occupational status: retired Cognitive needs: No Hearing needs: No Vision needs: Yes Review of Systems Const All systems reviewed & are unremarkable except as noted in HPI and below Physical Exam Vital Signs: Last Vital Signs Pulse 64 04/24/24 09:35 BP 120/70 04/24/24 09:35 Pulse Ox 98 04/24/24 09:35 Oxygen Delivery Method Room Air 04/24/24 09:35 BMI result Body Mass Index 25.6 Const General: comfortable and no acute distress Orientation/consciousness: patient oriented x3 HEENT Head: Yes normocephalic Mouth: Normal oral and palatal mucosa present Eyes EOM: EOMs intact bilaterally Neck Neck: Yes supple Resp Auscultation: clear to auscultation bilaterally Cardio Jugular venous distension: no JVD Rate: regular rate GI Palpation (GI): Soft to palpation Auscultation: normal bowel sounds General: Yes no CVA tenderness Back/Spine/Pelvis Back: no CVA tenderness Skin General skin exam: no rashes or lesions noted Neuro General: patient oriented x3 and moves all extremities Extrem General: Yes no pedal edema Results Reviewed Nephrology Results: Hgb 14.7 g/dl (12.0-16.0) 04/20/24 WBC 3.3 X10*3/uL (4.8-10.8) L 04/20/24 Plt Count 174 X10*3/uL (160-400) 04/20/24 Sodium 141 mmol/L (135-145) 04/20/24 Potassium 4.4 mmol/L (3.3-5.1) 04/20/24 Chloride 108 mmol/L (96-108) 04/20/24 Carbon Dioxide 23 mmol/L (22-29) 04/20/24 BUN 15 mg/dL (9-16) 04/20/24 Creatinine 0.75 mg/dL (0.5-1.4) 04/20/24 Calcium 9.2 mg/dL (8.4-10.2) 04/20/24 Assessment & Plan Assessment & Plan (1) Kidney stones: Code(s): N20.0 - Calculus of kidney Category: Medical Plan She has no active symptoms from nephrolithiasis. Her last imaging studies showed persistent renal calculi. She keeps up with good hydration and low-sodium in the diet. She takes more fruits and vegetables and does not consume excess meat in the diet. Her serum calcium has been normal. She add citrate in the fluid which she drinks. We discussed about follow-up renal ultrasound. We agreed to do it in a year unless there are any symptoms. If she has ongoing issues with renal calculi, she is open to take HCTZ. She may need potassium citrate as well. Follow-up lab work ordered. Answered all questions. Orders: Orders Uric Acid Today N20.0 - Calculus of kidney Blood Urea Nitrogen Today N20.0 - Calculus of kidney Calcium Today N20.0 - Calculus of kidney Creatinine Today N20.0 - Calculus of kidney Electrolytes Today N20.0 - Calculus of kidney Coding Level of Care Code Est Pt Level 4 (08794) Diagnoses Kidney stones N20.0
[2024-04-24 09:35] VITALS: BP 120/70; PULSE 64; O2SAT 98; BMI 25.6
== END 2024-04-24 10:08 | disposition home or self-care (01) ==
PROVIDERS: PCP Internal Medicine; Visit Provider Internal Medicine Nephrology
DX: N20.0 Calculus of kidney (principal)
CPT/HCPCS: 99214

== ENCOUNTER → 2024-04-24 09:19 | Outpatient (BNVA) | payer BC, SELFPAY | PROVIDERS: PCP Internal Medicine; Visit Provider Internal Medicine Nephrology ==

== ENCOUNTER 2024-07-03 09:19 | Outpatient (AMB) | payer BC, SELFPAY ==
[2024-07-03 09:27] VITALS: BP 114/76; PULSE 56; O2SAT 98; BMI 24.0
--- NOTE | 2024-07-03 09:27 | MHC.PC.OV ---
Vital Signs 07/03/24 09:27 Height 5 ft 10 in Weight 167 lb BMI 24.0 BP 114/76 Blood Pressure Location Lt brachial Position Sitting Pulse 56 Pulse Source Pulse Oximeter Pulse Oximetry (%) 98 Oxygen Delivery Method Room Air Intake Visit Reasons: 3 month follow up Intake Note: Pt is here today for 3 months follow up visit. Allergies amoxicillin [AMOXICILLIN] Allergy (Severe, Verified 07/03/24 09:29) HIVES clarithromycin Allergy (Severe, Verified 07/03/24:) HIVES erythromycin base [From ERYTHROCIN] Allergy (Severe, Verified 07/03/24:) HIVES ibuprofen [IBUPROFEN] Allergy (Severe, Verified 07/03/24:) ANAPHYLAXIS, difficulty breathing latex [LATEX] Allergy (Severe, Verified 07/03/24) HIVES levofloxacin [From LEVAQUIN] Allergy (Severe, Verified 07/03/24:) HIVES NSAIDS (Non-Steroidal Anti-Inflamma [NSAIDS (NON-STEROIDAL ANTI-INFLAMMA] Allergy (Severe, Verified 07/03/24 09:) ANAPHYLAXIS aspirin Allergy (Unknown, Verified 07/03/24:) breathing difficulty azithromycin Allergy (Unknown, Verified 07/03/24 09:) uncoded codeine [CODEINE] Allergy (Unknown, Verified 07/03/24:) RASH naproxen [Aleve] Allergy (Unknown, Verified 07/03/24:) throat closes up and itch nut - unspecified [NUTS] Allergy (Unknown, Verified 07/03/24:) ANAPHYLAXIS sulfamethoxazole [From BACTRIM] Allergy (Unknown, Verified 07/03/24:) HIVES trimethoprim [From BACTRIM] Allergy (Unknown, Verified 07/03/24:) HIVES arythromycin Allergy (Unknown, Uncoded 07/03/24:) uncoded Medication List - Last Reconciled 07/03/24 by Neida James MD albuterol sulfate 90 mcg/actuation 2 puffs PO Q4H PRN albuterol sulfate 2.5 mg inhalation TID PRN cetirizine (Zyrtec) 10 mg PO DAILY sertraline 50 mg PO DAILY Tobacco use date assessed: 07/03/24 Dental Screening Dental Screen Date: 04/08/24 HPI 3 month follow up HPI Details Patient presents for the follow-up of chronic anxiety stable on sertraline. She had a consultation with neurosurgeon for persistent mid back pain and was advised to continue with regular exercises and wearing the brace for back support as long as she needs to. Patient has a follow-up with a pain management at [facility] Medical History Kidney stones Vitamin D deficiency Right hip pain Hematuria Dysuria Lower back pain Trochanteric bursitis Neutropenia Hyperlipidemia FH: cholecystectomy Asthma Anxiety GERD (gastroesophageal reflux disease) Failed back syndrome Surgical History Hx of tonsillectomy Hx of cervical spine surgery History of ERCP History of esophagogastroduodenoscopy (EGD) H/O colonoscopy No pertinent past surgical history Family History Father CVD (cardiovascular disease) Diabetes mellitus Hx of CABG Mother HTN (hypertension) Hyperlipidemia Unknown family medical history Social History Household Members: Spouse Housing: House Are you a primary primary care pediatrician to a significant other at home: No Do you presently have visiting nurse or other home services: No Alcohol intake: current Alcohol intake frequency: holidays/special occasions only Patient Tobacco Use Status: Never used Tobacco e-Cigarette/Vaping Use: Never Used service: No Current occupational status: retired Cognitive needs: No Hearing needs: No Vision needs: Yes Questionnaire PHQ-9 Over the last 2 weeks, how often have you been bothered by any of the following problems? 1. Little interest or pleasure in doing things: not at all 2. Feeling down, depressed, or hopeless: not at all 3. Trouble falling or staying asleep, or sleeping too much: several days 4. Feeling tired or having little energy: not at all 5. Poor appetite or overeating: not at all 6. Feeling bad about yourself - or that you are a failure or have let yourself or your family down: not at all 7. Trouble concentrating on things, such as reading the newspaper or watching television: not at all 8. Moving or speaking so slowly that other people could have noticed. Or the opposite - being so fidgety or restless that you have been moving around a lot more than usual: not at all 9. Thoughts that you would be better off or of hurting yourself in some way: not at all Total score: 1 Depression Screening Interpretation: Negative Depression Screening Done: Yes 94044 - PHQ-9 Billing: Yes Source: Developed by Drs. Tu Lu, Nazia Brand, Dean Turner and colleagues, with an educational chapin from [employer]. Thrive Questionnaire Date Thrive assessed: 07/03/24 I am a: Patient What is your living situation today?: I have a steady place to live Within the past 12 months, did the food you bought not last and you didn't have the money to get more?: Often true Within the past 12 months, did you worry whether your food would run out before you got money to buy more?: I choose not to answer this question Do you have trouble paying for medicines?: No Do you have trouble getting transportation to medical appointments?: No Do you have trouble paying your heating and electricity bill?: No Do you have trouble taking care of your child, family member or friend?: No Do you have trouble with day-to-day activities such as bathing, preparing meals, shopping, managing finances, etc.?: No Are you currently unemployed and looking for a job?: No Are you interested in more education?: No Please select the resources that you would like help with: None Currently or been in a relationship where the following occur: I choose not to answer THRIVE Score: 1 AUDIT C Alcohol Use Questionnaire (AUDIT-C) 1. How often do you have a drink containing alcohol?: Never 3. How often do you have six or more drinks on one occasion?: Never Total Score: 0 YULIA-7 AMB Questionnaire YULIA-7 Date YULIA - 7 assessed: 07/03/24 Feeling nervous, anxious, or on edge: 0 = Not at all Not being able to stop or control worryin = Not at all Worrying too much about different things: 0 = Not at all Trouble relaxin = Not at all Being so restless that it is hard to sit still: 0 = Not at all Becoming easily annoyed or irritable: 0 = Not at all Feeling afraid as if something awful might happen: 0 = Not at all Total YULIA-7 score (0-4 normal; 5-9 mild; 10-14 moderate; 15-21 severe): 0 Source: Developed by Drs. Tu Lu, Nazia Brand, Dean Turner and colleagues, with an educational chapin from [employer]. YULIA-7 Assessment Billing YULIA-7 Assessment Tool: YULIA-7 Assessment 83042 Review of Systems Const All systems reviewed & are unremarkable except as noted in HPI and below ENT Reports no additional complaints Card Reports no additional complaints Resp Reports no additional complaints GI Reports no additional complaints Physical exam (Primary Care) Vital Signs: Last Vital Signs Pulse 56 07/03/24 09:27 BP 114/76 07/03/24 09:27 Pulse Ox 98 07/03/24 09:27 Oxygen Delivery Method Room Air 07/03/24 09:27 BMI result Body Mass Index 24.0 Tobacco/Smoking Status: Tobacco use Status Tobacco use date assessed 07/03/24 07/03/24 09:32 Patient Tobacco Use Status Never used Tobacco 07/03/24 09:32 e-Cigarette/Vaping Use Never Used 07/03/24 09:32 PHQ-9: PHQ-9 Score PHQ-9: Total score 1 07/03/24 09:32 Depression Screening Interpretation: Negative Thrive Assessment: Date of Thrive Assessment Date Thrive assessed 07/03/24 07/03/24 09:32 Currently or been in a relationship where the following occur: I choose not to answer Const General: no acute distress HENMT Head: Yes normal to inspection Resp Effort & Inspection: normal respiratory effort Auscultation: clear to auscultation bilaterally Cardio Rhythm: regular rhythm Heart sounds: S1 normal heart sound present and S2 normal heart sound present Back/Spine/Pelvis Other: Paraspinal tenderness in mid to lower thoracic spine Coding Level of Care Code Est Pt Level 3 (89268) Diagnoses Hyperlipidemia E78.5 Neutropenia D70.9 Anxiety F41.9 Additional Codes YULIA-7 Assessment Billing - YULIA-7 Assessment Tool: YULIA-7 Assessment 38891 ([id number]) Assessment & Plan Assessment & Plan (1) Hyperlipidemia: Comment: Intolerant to pravastatin, myalgia Code(s): E78.5 - Hyperlipidemia, unspecified Category: Medical Plan: Continue low-cholesterol diet (2) Neutropenia: Comment: Evaluated by hematology, continue to monitor Code(s): D70.9 - Neutropenia, unspecified Category: Medical Plan: Monitor WBC (3) Anxiety: Code(s): F41.9 - Anxiety disorder, unspecified Category: Medical Plan: Continue Zoloft , return in October for physical with a fasting labs before Orders: Orders Comprehensive Ideal. Panel Fast 2 Months D70.9 - Neutropenia, unspecified, E55.9 - Vitamin D deficiency, unspecified, E78.5 - Hyperlipidemia, unspecified, Z00.00 - Encounter for general adult medical examination without abnormal findings Lipid Panel 2 Months D70.9 - Neutropenia, unspecified, E55.9 - Vitamin D deficiency, unspecified, E78.5 - Hyperlipidemia, unspecified, Z00.00 - Encounter for general adult medical examination without abnormal findings TSH reflex Free T4 2 Months D70.9 - Neutropenia, unspecified, E55.9 - Vitamin D deficiency, unspecified, E78.5 - Hyperlipidemia, unspecified, Z00.00 - Encounter for general adult medical examination without abnormal findings Complete Blood Count Auto Diff 2 Months D70.9 - Neutropenia, unspecified, E55.9 - Vitamin D deficiency, unspecified, E78.5 - Hyperlipidemia, unspecified, Z00.00 - Encounter for general adult medical examination without abnormal findings Vitamin D 25-OH Total 2 Months D70.9 - Neutropenia, unspecified, E55.9 - Vitamin D deficiency, unspecified, E78.5 - Hyperlipidemia, unspecified, Z00.00 - Encounter for general adult medical examination without abnormal findings Medications: Refilled sertraline 50 mg PO DAILY 90 tabs 2RF
== END 2024-07-03 10:22 | disposition home or self-care (01) ==
PROVIDERS: PCP Internal Medicine; Visit Provider Internal Medicine
DX: E78.5 Hyperlipidemia, unspecified (principal); D70.9 Neutropenia, unspecified; F41.9 Anxiety disorder, unspecified

== ENCOUNTER → 2024-07-03 09:19 | Outpatient (BNVA) | payer BC, SELFPAY | PROVIDERS: PCP Internal Medicine; Visit Provider Internal Medicine | DX: E78.5 Hyperlipidemia, unspecified (principal); D70.9 Neutropenia, unspecified; F41.9 Anxiety disorder, unspecified; Z79.899 Other long term (current) drug therapy | CPT/HCPCS: 96127 ==

== ENCOUNTER 2024-11-06 06:01 | Outpatient (REF) | payer BC, SELFPAY ==
[2024-11-06 09:51] LABS: MANUAL DIFF FLAG NO
[2024-11-06 09:56] LABS: Basophils Percent Auto 0.3 % (0-2); Eosinophils Absolute Auto 0.1 X10*3/uL (0.0-0.4); Eosinophils Percent Auto 2.4 % (0-4); Hematocrit 44.6 % (37.0-47.0); Hemoglobin 14.6 g/dl (12.0-16.0); Imm Gran Abs Auto 0.01 X10*3/uL (0.00-0.03); Imm Gran Pct Auto 0.3 % (0.0-0.4); Lymphocytes Absolute Auto 0.9 X10*3/uL (1.2-4.9); Lymphocytes Percent Auto 25.8 % (20-40); Mean Corpuscular HGB Conc 32.7 g/dl (31.0-35.0); Mean Corpuscular Hemoglobin 30.9 pg (27.0-33.0); Mean Corpuscular Volume 94.5 fL (80.0-98.0); Mean Platelet Volume 9.7 fL (9.4-12.3); Monocytes Absolute Auto 0.2 X10*3/uL (0.1-1.2); Monocytes Percent Auto 7.2 % (2-11); Neutrophils Absolute Auto 2.1 x10*3/uL (2.0-8.3); Platelet Count 197 X10*3/uL (160-400); Red Blood Count 4.72 X10*6/uL (4.20-5.50); Red Cell Distribution Width 11.8 % (11.0-16.0); White Blood Count 3.3 X10*3/uL (4.8-10.8)
[2024-11-06 10:25] LABS: Alanine Aminotransferase 19 U/L (0-31); Alkaline Phosphatase 109 U/L (39-117); Anion Gap 9 (12-20); Aspartate Amino Transferase 23 U/L (5-31); Bilirubin Total 0.6 mg/dL (0.0-1.0); Blood Urea Nitrogen 19 mg/dL (9-16); Carbon Dioxide 28 mmol/L (22-29); Chloride 107 mmol/L (96-108); Cholesterol 218 mg/dL (<200); Estimated Glomerular Filt Rate > 60; Glucose Fasting 82 mg/dL (60-99); HDL Cholesterol 78 mg/dL (>40); LDL Cholesterol Calculated 129 mg/dL (<100); Potassium 4.1 mmol/L (3.3-5.1); Sodium 140 mmol/L (135-145); Total Protein 6.9 g/dL (6.5-8.0); Triglycerides 57 mg/dL (<150)
[2024-11-06 10:44] LABS: TSH reflex Free T4 1.86 uIU/mL (0.32-4.0)
== END 2024-11-06 06:02 | disposition home or self-care (01) ==
LOC: HO.HMGCLDS 06:01
PROVIDERS: PCP Internal Medicine; Visit Provider Internal Medicine
DX: Z00.00 Encounter for general adult medical examination without abnormal findings (principal); E55.9 Vitamin D deficiency, unspecified; D70.9 Neutropenia, unspecified; E78.5 Hyperlipidemia, unspecified
CPT/HCPCS: 36415; 80053; 80061; 82306; 84443; 85025

== ENCOUNTER 2024-11-08 13:09 | Outpatient (AMB) | payer BC, SELFPAY ==
--- NOTE | 2024-11-08 13:41 | MHC.PC.OV ---
Vital Signs 11/08/24 13:41 Height 5 ft 10 in Weight 161 lb BMI 23.1 BP 106/70 Blood Pressure Location Lt brachial Position Sitting Respiration 18 Pulse 66 Pulse Source Pulse Oximeter Temp 98.2 F Temp Source Oral Pulse Oximetry (%) 96 Oxygen Delivery Method Room Air Intake Visit Reasons: PE Intake Note: Pt is here today for PE. Allergies amoxicillin [AMOXICILLIN] Allergy (Severe, Verified 11/08/24 13:42) HIVES clarithromycin Allergy (Severe, Verified 11/08/24 13:42) HIVES erythromycin base [From ERYTHROCIN] Allergy (Severe, Verified 11/08/24 13:42) HIVES ibuprofen [IBUPROFEN] Allergy (Severe, Verified 11/08/24 13:42) ANAPHYLAXIS, difficulty breathing latex [LATEX] Allergy (Severe, Verified 11/08/24 13:42) HIVES levofloxacin [From LEVAQUIN] Allergy (Severe, Verified 11/08/24 13:42) HIVES NSAIDS (Non-Steroidal Anti-Inflamma [NSAIDS (NON-STEROIDAL ANTI-INFLAMMA] Allergy (Severe, Verified 11/08/24 13:42) ANAPHYLAXIS aspirin Allergy (Unknown, Verified 11/08/24 13:42) breathing difficulty azithromycin Allergy (Unknown, Verified 11/08/24 13:42) uncoded codeine [CODEINE] Allergy (Unknown, Verified 11/08/24 13:42) RASH naproxen [Aleve] Allergy (Unknown, Verified 11/08/24 13:42) throat closes up and itch nut - unspecified [NUTS] Allergy (Unknown, Verified 11/08/24 13:42) ANAPHYLAXIS sulfamethoxazole [From BACTRIM] Allergy (Unknown, Verified 11/08/24 13:42) HIVES trimethoprim [From BACTRIM] Allergy (Unknown, Verified 11/08/24 13:42) HIVES arythromycin Allergy (Unknown, Uncoded 11/08/24 13:42) uncoded Medication List - Last Reconciled 11/08/24 by Neida James MD albuterol sulfate 90 mcg/actuation 2 puffs PO Q4H PRN cetirizine (Zyrtec) 10 mg PO DAILY epinephrine 0.3 mg (0.3 mL) IM Q10M PRN ergocalciferol (vitamin D2) 1,250 mcg PO QWEEK sertraline 50 mg PO DAILY Tobacco use date assessed: 11/08/24 Dental Screening Dental Screen Date: 11/08/24 Did you have a dental visit in the last 12 months?: Yes Did you have a dental problem in the last 6 months where you did not have access to dental care?: No Was dental information given to patient?: Patient has dentist HPI PE HPI Details Pt presents for PE. PFSH Medical History (Updated 11/08/24 @ 14:18 by Neida James MD) Kidney stones Vitamin D deficiency Right hip pain Hematuria Dysuria Lower back pain Trochanteric bursitis Neutropenia Hyperlipidemia FH: cholecystectomy Asthma Anxiety GERD (gastroesophageal reflux disease) Failed back syndrome Surgical History (Updated 11/08/24 @ 14:04 by Neida James MD) Hx of tonsillectomy Hx of cervical spine surgery History of ERCP History of esophagogastroduodenoscopy (EGD) H/O colonoscopy No pertinent past surgical history Family History Father CVD (cardiovascular disease) Diabetes mellitus Hx of CABG Mother HTN (hypertension) Hyperlipidemia Unknown family medical history Melanoma Social History Household Members: Spouse Housing: House Are you a primary rn managed care to a significant other at home: No Do you presently have visiting nurse or other home services: No Alcohol intake: current Alcohol intake frequency: holidays/special occasions only Patient Tobacco Use Status: Never used Tobacco e-Cigarette/Vaping Use: Never Used service: No Current occupational status: retired Cognitive needs: No Hearing needs: No Vision needs: Yes Questionnaire PHQ-9 Over the last 2 weeks, how often have you been bothered by any of the following problems? 1. Little interest or pleasure in doing things: not at all 2. Feeling down, depressed, or hopeless: not at all 3. Trouble falling or staying asleep, or sleeping too much: several days 4. Feeling tired or having little energy: not at all 5. Poor appetite or overeating: not at all 6. Feeling bad about yourself - or that you are a failure or have let yourself or your family down: not at all 7. Trouble concentrating on things, such as reading the newspaper or watching television: not at all 8. Moving or speaking so slowly that other people could have noticed. Or the opposite - being so fidgety or restless that you have been moving around a lot more than usual: not at all 9. Thoughts that you would be better off or of hurting yourself in some way: not at all Total score: 1 Depression Screening Interpretation: Negative Depression Screening Done: Yes 51861 - PHQ-9 Billing: Yes Source: Developed by Drs. Tu Lu, Nazia Brand, Dean Turner and colleagues, with an educational chapin from [employer]. Thrive Questionnaire Date Thrive assessed: 11/08/24 I am a: Patient What is your living situation today?: I have a steady place to live Within the past 12 months, did the food you bought not last and you didn't have the money to get more?: Never true Within the past 12 months, did you worry whether your food would run out before you got money to buy more?: Never true Do you have trouble paying for medicines?: No Do you have trouble getting transportation to medical appointments?: No Do you have trouble paying your heating and electricity bill?: No Do you have trouble taking care of your child, family member or friend?: No Do you have trouble with day-to-day activities such as bathing, preparing meals, shopping, managing finances, etc.?: No Are you currently unemployed and looking for a job?: No Are you interested in more education?: No Please select the resources that you would like help with: None Currently or been in a relationship where the following occur: No concerns reported THRIVE Score: 0 AUDIT C Alcohol Use Questionnaire (AUDIT-C) 1. How often do you have a drink containing alcohol?: Never 3. How often do you have six or more drinks on one occasion?: Never Total Score: 0 YULIA-7 AMB Questionnaire YULIA-7 Date YULIA - 7 assessed: 11/08/24 Feeling nervous, anxious, or on edge: 1 = Several days Not being able to stop or control worryin = Not at all Worrying too much about different things: 0 = Not at all Trouble relaxin = Several days Being so restless that it is hard to sit still: 0 = Not at all Becoming easily annoyed or irritable: 0 = Not at all Feeling afraid as if something awful might happen: 0 = Not at all Total YULIA-7 score (0-4 normal; 5-9 mild; 10-14 moderate; 15-21 severe): 2 Source: Developed by Drs. Tu Lu, Nazia Brand, Dean Turner and colleagues, with an educational chapin from [employer]. YULIA-7 Assessment Billing YULIA-7 Assessment Tool: YULIA-7 Assessment 94705 Review of Systems Const All systems reviewed & are unremarkable except as noted in HPI and below Reports no additional complaints Eyes Reports no additional complaints ENT Reports no additional complaints Card Reports no additional complaints Resp Reports no additional complaints GI Reports no additional complaints Reports no additional complaints Musc Reports no additional complaints Physical exam (Primary Care) Vital Signs: Last Vital Signs Temp 98.2 F 11/08/24 13:41 Pulse 66 11/08/24 13:41 Resp 18 11/08/24 13:41 BP 106/70 11/08/24 13:41 Pulse Ox 96 11/08/24 13:41 Oxygen Delivery Method Room Air 11/08/24 13:41 BMI result Body Mass Index 23.1 Tobacco/Smoking Status: Tobacco use Status Tobacco use date assessed 11/08/24 11/08/24 13:49 Patient Tobacco Use Status Never used Tobacco 11/08/24 13:49 e-Cigarette/Vaping Use Never Used 11/08/24 13:49 PHQ-9: PHQ-9 Score PHQ-9: Total score 1 11/08/24 13:49 Depression Screening Interpretation: Negative Thrive Assessment: Date of Thrive Assessment Date Thrive assessed 11/08/24 11/08/24 13:49 Currently or been in a relationship where the following occur: No concerns reported Const General: no acute distress HENMT Head: Yes normal to inspection Ears: hearing grossly normal bilaterally General nose exam: Normal external nose present Face and sinus: Yes normal facial exam Mouth: Normal oral and palatal mucosa present Throat: Yes posterior oropharynx normal Eyes General: appearance normal, both eyes and all related structures Neck Neck: Yes no lymphadenopathy and Yes supple Resp Effort & Inspection: normal respiratory effort Auscultation: clear to auscultation bilaterally Cardio Rhythm: regular rhythm Heart sounds: S1 normal heart sound present and S2 normal heart sound present GI Inspection: Yes normal to inspection Palpation (GI): Soft to palpation Percussion: Yes normal to percussion Auscultation: normal bowel sounds Coding Level of Care Code Est Pt Prev Care 40-64y(00962) Diagnoses H/O colonoscopy Z98.890 Annual physical exam Z00.00 Neutropenia D70.9 Hyperlipidemia E78.5 Vitamin D deficiency E55.9 Additional Codes YULIA-7 Assessment Billing - YULIA-7 Assessment Tool: YULIA-7 Assessment 95827 ([id number]) PHQ-9 - 75334 - PHQ-9 Billing: Yes ([id number]) Assessment & Plan Assessment & Plan (1) H/O colonoscopy: Comment: at 51, 12/2023 Dr. Painter negative Code(s): Z98.890 - Other specified postprocedural states Category: Surgical Plan: Established with GI (2) Annual physical exam: Code(s): Z00.00 - Encounter for general adult medical examination without abnormal findings Category: Medical Plan: Well-balanced diet regular physical activity discussed with the patient. She is up-to-date with the mammogram colonoscopy and Pap smear (3) Neutropenia: Comment: Evaluated by hematology, continue to monitor Code(s): D70.9 - Neutropenia, unspecified Category: Medical Plan: Follow-up with Hematology (4) Hyperlipidemia: Comment: Intolerant to pravastatin, myalgia Code(s): E78.5 - Hyperlipidemia, unspecified Category: Medical Plan: Continue low-cholesterol diet , return in 1 year for physical (5) Vitamin D deficiency: Code(s): E55.9 - Vitamin D deficiency, unspecified Category: Medical Plan: cont vit D Orders: Orders Comprehensive [place]. Panel Fast 1 Year E55.9 - Vitamin D deficiency, unspecified, E78.5 - Hyperlipidemia, unspecified, Z00.00 - Encounter for general adult medical examination without abnormal findings Vitamin D 25-OH Total 1 Year E55.9 - Vitamin D deficiency, unspecified, E78.5 - Hyperlipidemia, unspecified, Z00.00 - Encounter for general adult medical examination without abnormal findings Lipid Panel 1 Year E55.9 - Vitamin D deficiency, unspecified, E78.5 - Hyperlipidemia, unspecified, Z00.00 - Encounter for general adult medical examination without abnormal findings Complete Blood Count Auto Diff 1 Year E55.9 - Vitamin D deficiency, unspecified, E78.5 - Hyperlipidemia, unspecified, Z00.00 - Encounter for general adult medical examination without abnormal findings Medications: Refilled sertraline 50 mg PO DAILY 90 tabs 3RF
== END 2024-11-08 14:12 | disposition home or self-care (01) ==
PROVIDERS: PCP Internal Medicine; Visit Provider Internal Medicine
DX: Z98.890 Other specified postprocedural states (principal); Z00.00 Encounter for general adult medical examination without abnormal findings; D70.9 Neutropenia, unspecified; E78.5 Hyperlipidemia, unspecified; E55.9 Vitamin D deficiency, unspecified

== ENCOUNTER → 2024-11-08 13:09 | Outpatient (BNVA) | payer BC, SELFPAY | PROVIDERS: PCP Internal Medicine; Visit Provider Internal Medicine | DX: Z00.00 Encounter for general adult medical examination without abnormal findings (principal); D70.9 Neutropenia, unspecified; E78.5 Hyperlipidemia, unspecified; E55.9 Vitamin D deficiency, unspecified; Z79.899 Other long term (current) drug therapy | CPT/HCPCS: 96127 ==

== ENCOUNTER 2024-12-06 14:42 | Outpatient (REF) | payer BC, SELFPAY ==
--- OUTSIDE RECORDS SUMMARY | 2024-12-06 16:29 | XMS_ITS ---
Author Organization [facility] Address [address] [place] [address] Care Team Providers Care Php Engineer Name Role Phone Jacob ABURTO, Neida Primary Care Provider Unavaila Tu Grant Unavailable [phone] Riri Watson Unavailable Unavailable REASON FOR VISIT screening Encounters Encounter Location Date Provider Diagnosis [facility] [place] [address] [place] [phone] 10/09/2023 Tu Painter Plan Of Treatment No Information Progress Notes * DEBBI MAKDOB:1960 (64 yo F)Acc No.[id number]:10/09/2023 COLON WITH MAC Patient:AndreinaDEBBI MAK Provider:?Tu Painter MD :1960???Age:63 Y???Sex:Female D ate:10/09/2023 Address:[address] [place], [place] [id number] Pcp:Neida James MD Subjective: * Chief Complaints: * ???1. Screening. * Medical History:? Objective: * Vitals:? Assessment: Plan: * Treatment: * * The named appointment provid er may or may not be the originator of this progress note, and it is not deemed complete until electronically signed by the appointment provider. Sign off status: Pending * Provider:?Tu Painter MD Date:? 024 Generated for Cheti nader/Faaletag/eTransmitting on:?12/06/2024 04:28 PM EST
--- OUTSIDE RECORDS SUMMARY | 2024-12-06 16:29 | XMS_ITS | Patient Health Record ---
Author Organization [facility] Address [address] [place] [address] Care Team Providers Care Film Processing Shift Supervisor Name Role Phone Neida James MD Primary Care Provider Unavaila Tu Grant Unavailable [phone] Riri Watson Unavailable Unavailable Allergies Allergen (clinical drug ingredient) Drug/Non Drug Allergy documented on EMR Reaction Allergy Type Onset Date Status Biaxin Unknown Drug Allergy Active Bactrim Unknown Drug Allergy Active Baby Aspirin Unknown Drug Allergy Acti ve amoxicillin Amoxicillin Unknown Drug Allergy Act kris clarithromycin Clarithromycin Unknown Drug Allergy Active Tree Nuts Unknown Allergy Active azithromycin Azithromycin Unknown Drug Allergy A ctive Latex Gloves Unknown Drug Allergy Acti ve Levaquin Unknown Drug Allergy Active ibuprofen Ibuprofen Unknown Drug Allergy Active erythromycin Erythromycin Unknown Drug Allergy A ctive Codeine Phosphate Unknown Drug Allergy Active Reason For Referral No Information Medications Medication SIG (Take, Route, Frequency, Duration) Notes Start Date End Date Status ProAir HFA Not-Takin g Albuterol Sulfate 1.25 MG/3ML USE 3 ML VIA NEBULIZER THREE TIMES DAILY NEEDED FOR SHORTNESS OF BREATH OR WHEEZING Inhalation for 8 Not-Taking Pravastatin Sodium 20 MG Oral for 60 Active ZyrTEC Allergy Activ e Problems Problem Type SNOMED Code ICD Code Onset Dates Problem Status W/U Status Risk Notes Problem [id number] Colon cancer screening (Z12.11) Active confirmed Problem Diverticular disease of colon (089838747) Diverticulosis of large intestine without perforation or abscess without bleeding (K57.30) Active confirmed Problem [id number] Preprocedural examination (Z01.818) Active confirmed Encounters Encounter Location Date Provider Diagnosis [facility] [place] [address], [place] [phone] 12/27/2023 Tu Inocencio Encounter for scre ening colonoscopy Z12.11 ; [...] hemorrhoids (ICD-10 - K64.8) Plan Of Treatment Future Test Test Name Order Date COLONOSCOPY 04/25/2013 COLONOSCOPY 02/07/2023 Insurance Providers Payer Name Payer Address Payer Phone Subscriber Number Group Number Insured Name Patient Relationship to Insured Coverage Start Date Coverage End Date [facility] [address] [place] [address] [phone] [id number] DEBBI MAK Self - patient is the insured Medical (General) History Medical History History ICD Code EGD [id number]--normal Asthma History of anxiety Hypoglycemia Denies PR,DM,CVA,renal disease Kidney stones Colonoscopy 2012 with only hyperplastic polyps Hyperlipidemia ERCP with a sphincterotomy by me in 2018 prior to a cholecystectomy Surgical History Surgery Date(Month/Year) Pilonidal cyst C-spine disk surgery Uterine ablation Tonsillectomy Cholecyst[place] [address] Radha garcia
--- OUTSIDE RECORDS SUMMARY | 2024-12-06 16:29 | XMS_ITS ---
Author Organization [facility] Address [address] [place] [address] Care Team Providers Care Exchange Architect Name Role Phone Neida James MD Primary Care Provider Unavaila Tu Grant Unavailable [phone] Riri Watson Unavailable Unavailable REASON FOR VISIT screening Problems Problem Type SNOMED Code ICD Code Onset Dates Problem Status W/U Status Risk Notes Problem Diverticular disease of colon (718756433) Diverticulosis of large intestine without perforation or abscess without bleeding (K57.30) Active confirmed Encounters Encounter Location Date Provider Diagnosis [facility] [place] Out[place] [address] [place] [phone] 12/27/2023 Tu Painter Encounter for scre ening [...] Notes * DEBBI MAKDOB:1960 (64 yo F)Acc No.[id number]:12/27/2023 COLON WITH MAC Patient:?DEBBI MAK Provider:?Tu Painter MD :1960???Age:63 Y???Sex:Female D ate:12/27/2023 Address:[address] [place], [place] [phone] Pcp:Neida James MD Subjective: * Chief Complaints: * ???1. Screening. * Medical History:? Objective: * Vitals:? Assessment: * Assessment: 1.?Encounter for screening c olonoscopy - Z12.11 (Primary)???2.?Diverticulosis of large intestine without perforation or abscess without bleeding - K57.30???3.?Other hemorrhoids - K64.8??? Plan: * Treatment: * Procedure Codes:?75416 DIAGN OSTIC COLONOSCOPY, Modifiers: 33 * * The named appointment provid er may or may not be the originator of this progress note, and it is not deemed complete until electronically signed by the appointment provider. Sign off status: Pending * Provider:?Tu Painter MD Date:? 024 Generated for Sushant doe/Jw/eTransmitting on:?12/06/2024 04:28 PM EST
--- OUTSIDE RECORDS SUMMARY | 2024-12-06 16:29 | XMS_ITS ---
Author Organization [facility] Address [address] [place], [place] [id number] Care Team Providers Care Square Cutter Name Role Phone SLAVA SIS Noonan [phone] REASON FOR VISIT Laboratory Encounters Encounter Location Date Provider Diagnosis [address] [id number] 01/19/2024 SIS PEDERSEN Plan Of Treatment No Information Progress Notes * DEBBI MAK EDOB:1960 ( 63 yo M)Acc No.[id number]:01/19/2024 Patient:?DEBBI MAK :1960???Age:63 Y???Sex:Male Address:[place] [address] * true * Date:? Generated for Sushant doe/Jw/eTransmitting on:?12/06/2024 04:29 PM EST
--- OUTSIDE RECORDS SUMMARY | 2024-12-06 16:29 | XMS_ITS | Patient Health Record ---
Author Organization [facility] Address [address] [place], [place] [phone] Care Team Providers Care Manager Social Media Name Role Phone SIS PEDERSEN Unavailable [phone] Allergies Allergen (clinical drug ingredient) Drug/Non Drug Allergy documented on EMR Reaction Allergy Type Onset Date Status Baby Aspirin Unknown Drug Allergy Acti ve sulfamethoxazole / trimethoprim Bactrim Unknown Drug Allergy Active Biaxin Unknown Drug Allergy Active Levaquin Unknown Drug Allergy Active amoxicillin Amoxicillin Unknown Drug Allergy Act kris azithromycin Azithromycin Unknown Drug Allergy A ctive clarithromycin Clarithromycin Unknown Drug Allergy Active codeine Codeine Unknown Drug Allergy Active erythromycin Erythromycin Unknown Drug Allergy A ctive ibuprofen Ibuprofen Unknown Drug Allergy Active Latex Latex Unknown Allergy Active Tree Nuts Unknown Allergy Active Results Component Value Reference Range Notes Urine Culture, Routine Reviewed date:01/19/2024 11:56:59 AM Interpretation:Abnormal Performing Lab:[facility], [address] [place] [address], Phone - [phone], Director - Masood Notes/Report: Clinical Information:SRC:UR Clinical Information:SRC:UR Urine Culture, Routine Final report Result 1 Escherichia coli Cefazolin <=4 ug/mL Cefazolin with an JOAQUIN <=16 predicts susceptibility to the oral agents cefaclor, cefdinir, cefpodoxime, cefprozil, cefuroxime, cephalexin, and loracarbef when used for therapy of uncomplicated urinary tract infections due to E. coli, Klebsiella pneumoniae, and Proteus mirabilis. Greater than 100,000 colony forming units per mL Antimicrobial Susceptibility S = Susceptible; I = Intermediate; R = Resistant P = Positive; N = Negative MICS are expressed in micrograms per mL Antibiotic RSLT#1 RSLT#2 RSLT#3 RSLT#4 Amoxicillin/Clavulanic Acid S Ampicillin S Cefepime S Ceftriaxone S Cefuroxime S Ciprofloxacin S Ertapenem S Gentamicin S Imipenem S Levofloxacin S Meropenem S Nitrofurantoin S Piperacillin/Tazobactam S Tetracycline S Tobramycin S Trimethoprim/Sulfa S Urinalysis Reviewed date:01/16/2024 02:10:22 PM Interpretation: Performing Lab: Notes/Report: Glucose neg Bilirubin neg KET neg SG 1.010 Blood small pH 6.0 Protein neg URO 0.2 Nitrate neg Leuk small Reason For Referral No Information Medications Medication SIG (Take, Route, Fr equency, Duration) Notes Start Date End Date Status Baclofen Active Pravastatin Sodium A ctive Vital Signs Heart Rate 76 /min 01/16/2024 Temperature 97.4 degrees Fahrenheit 01/16/2024 Blood pressure diastolic 91 mm Hg 01/16/2024 Oximetry 98 % 01/16/2024 Height 70 in 01/16/2024 Blood pressure systolic 143 mm Hg 01/16/2024 Weight 190.5 lbs 01/16/2024 BMI 27.33 kg/m2 01/16/2024 Encounters Encounter Location Date Provider Diagnosis [facility] [address] [place], [place] [phone] 01/16/2024 SIS PEDERSEN Frequent urination R35.[address] [phone] 01/19/2024 SIS PEDERSEN Assessments Encounter Date Diagnosis (ICD Code) Assessment Notes Treatment Notes Treatment Clinical Notes Section Notes 01/16/2024 Frequent urination (ICD-10 - R35.0) Plan Of Treatment No Information Insurance Providers Payer Name Payer Address Payer Phone Subscriber Number Group Number Insured Name Patient Relationship to Insured Coverage Start Date Coverage End Date [facility] [address] [place] [address] [id number] DEBBI MAK Self - patient is the insured Medical (General) History Medical History History ICD Code kidney stones hyperlipidemia asthma Surgical History Surgery Date(Month/Year) gallbladder
--- OUTSIDE RECORDS SUMMARY | 2024-12-06 16:29 | XMS_ITS ---
Author Organization [facility] Address [address] [place] [address] Care Team Providers Care Hospice Social Worker Name Role Phone Neida James MD Primary Care Provider UnavailTu Ko [phone] Riri Watson Unavailable Unavailable REASON FOR VISIT [place] [facility] [place] for proc on 12-27-[address] Painter Encounters Encounter Location Date Provider Diagnosis [facility] [address] [place] [address] 11/27/2023 Tu Painter Plan Of Treatment No Information Progress Notes * DEBBI MAKDOB:1960 (63 yo F)Acc No.[id number]:11/27/2023 Patient:?DEBBI MAK :1960???Age:63 Y???Sex:Female Address:[address] [place] [address] * true * Date:? Generated for Sushant doe/Jw/eTransmitting on:?12/06/2024 04:28 PM EST
--- OUTSIDE RECORDS SUMMARY | 2024-12-06 16:29 | XMS_ITS | Clinical Summary ---
Author Organization [facility] Address [address] [place] [address] [address] [place] [address] Phone Care Team Providers Care Java Lead Name Role Phone Neida James MD Primary Care Provider [phone] Allergies Active Allergy Reactions Criticality Noted Date Comments Amoxicillin 12/22/2021 Aspirin 12/22/2021 Azithromycin 12/22/2021 Clarithromycin 12/22/2021 Codeine 12/22/2021 Erythromycin 12/22/2021 Ibuprofen 12/22/2021 Latex Other (see comments) 04/25/2013 Levofloxacin 12/22/2021 Naproxen 12/22/2021 Nsaids 12/22/2021 Sulfamethizole 12/22/2021 Trimethoprim 12/22/2021 Medications baclofen (LIORESAL) 10 MG tablet Take 1 tablet by mouth if needed 2 Active ergocalciferol 1.25 MG (61902 UT) capsule Take 50,000 Units by mouth 1 (one) time per week 1 Active cetirizine (ZyrTEC) 10 MG tablet Take 10 mg by mouth 1 (one) time each day Active pravastatin (PRAVACHOL) 10 MG tablet Take 10 mg by mouth 1 (one) time each day Active albuterol 1.25 MG/3ML nebulizer solution Take 3 mL by nebulization 3 (three) times a day if needed 2 Active hydroCHLOROthia zide 12.5 MG tablet Take 2 tablets (25 mg total) by mouth 1 (one) time each day 180 tablet 3 2 Active Active Problems Problem Noted Date Diagnosed Date Screening for malignant neoplasm of colon 202204/25/2023 Nephrolithiasis 12/22/2021 Family History Medical History Relation Comments Diabetes Father Heart disease Father Kidney disease Father Hypertension Mother Relation Status Comments Father Mother Alive Social History Tobacco Use Types Packs/Day Years Used Date Smoking Tobacco: Never Smokeless Tobacco: Never Tobacco Cessation:Counseling Given: Not Answered Alcohol Use Standard Drinks/Week Comments Yes 0 (1 standard drink = 0.6 oz pur e alcohol) Comments Unknown Sex and Gender Information Value Date Recorded Sex Assigned at Not on file Legal Sex Female 3:55 PM EST Gender Identity Not on file Sexual Orientation Not on file Last Filed Vital Signs Vital Sign Reading Time Taken Comments Blood Pressure 118/70 04/26/2023 3:18 PM EDT Pulse 66 04/26/2023 3:18 PM EDT Temperature - - Respiratory Rate - - Oxygen Saturation 99% 09/28/2022 4:30 PM EST Inhaled Oxygen Concentration - - Weight 88.2 kg (194 lb 6.4 oz) 04/26/2023 3:18 P M EDT Height 177.8 cm (5' 10 ) 09/28/2022 4:30 PM EST Body Mass Index 27.89 09/28/2022 4:30 PM EST Plan of Treatment Health Maintenance Due Date Last Done Comments Breast Cancer Screening 1960 Pneumococcal Vaccine: Pediat rics (0 to 5 Years) and At-Risk Patients (6 to 64 Years) (1 of 2 - PCV) 1967 Colorectal Cancer Screening: Annual FOBT 2010 Colorectal Cancer Screening: Colonoscopy 2010 Colorectal Cancer Screening: Sigmoidoscopy 2010 Influenza Vaccine (#1) 2024 Hepatitis B Vaccine Aged Out No longe r eligible based on patient's age to complete this topic Insurance [facility] Care Teams Java Lead Relationship Specialty Start Date End Date Neida James MD 1960 [place] [address] PCP - General Internal Medicine 09/09/21
--- OUTSIDE RECORDS SUMMARY | 2024-12-06 16:29 | XMS_ITS ---
Author Organization [facility] Address [address], [place] [address] Care Team Providers Care Cable Installation Manager Name Role Phone SIS PEDERSEN Unavailable [phone] Allergies Allergen (clinical drug ingredient) Drug/Non Drug [...] Active Results Component Value Reference Range Notes Urinalysis Reviewed date:01/16/2024 02:10:22 PM Interpretation: Performing Lab: Notes/Report: Glucose neg Bilirubin neg KET neg SG 1.010 Blood small pH 6.0 Protein neg URO 0.2 Nitrate neg Leuk small Urine Culture, Routine Reviewed date:01/19/2024 11:56:59 AM Interpretation:Abnormal Performing Lab:[facility], [address] [place] [address], Phone - [phone], Director - Masood Notes/Report: Clinical Information:SRC:UR Clinical [...] S Tetracycline S Tobramycin S Trimethoprim/Sulfa S REASON FOR VISIT frequent urination, pain in legs and all over, frequency where she would just sit on the toilet, burning with urination Medications Medication SIG (Take, Route, Frequency, Duration) Notes Start Date End Date Status Baclofen Active Pravastatin Sodium A ctive Nitrofurantoin Monohyd Macro 100 MG 1 capsule with food Orally every 12 hrs for 7 days 01/16/2024 01/23/2024 Active Phenazopyridine HCl 200 MG 1 tablet afte r meals Orally Three times a day for 2 days 01/16/2024 01/18/2024 Active Vital Signs Temperature 97.4 degrees Fahrenheit 01/16/20 24 Heart Rate 76 /min 01/16/2024 Blood pressure systolic 143 mm Hg 01/16/20 24 Blood pressure diastolic 91 mm Hg 024 Weight 190.5 lbs 01/16/2024 BMI 27.33 kg/m2 01/16/2024 Height 70 in 01/16/2024 Oximetry 98 % 01/16/2024 Encounters Encounter Location Date Provider Diagnosis [address] [id number] 01/16/2024 SIS PEDERSEN Frequent urination R35.0 Assessments Encounter Date Diagnosis (ICD Code) Assessment Notes Treatment Notes Treatment Clinical Notes Section Notes 01/16/2024 Frequent urination (ICD-10 - R35.0) Plan Of Treatment Medication Medication Name Sig Start Date Stop Date Notes Nitrofurantoin Monohyd Macro 100 MG 1 capsule with food Orally every 12 hrs for 7 days 01/16/2024 01/23/2024 Phenazopyridine HCl 200 MG 1 tablet afte r meals Orally Three times a day for 2 days 01/16/2024 01/18/2024 Next Appt Details Follow Up: prn, Reason: Progress Notes * DEBBI MAK:[birth year] (63 yo M)Acc No.[id number]:01/16/2024 Progress Notes Patient:DEBBI DIALLO Appointment Provider:?SIS PEDERSEN NP :1960???Age:63 Y???Sex:Male Maurice e:01/16/2024 Address:[address] [place] [address], [id number] Subjective: * Chief Complaints: * ???1. Frequent urination, pa in in legs and all over. 2. Frequency where she would just sit on the toilet, burning with urination. * HPI: ???*:?63 year old female patient presents today with urination frequency, States that she has pain her her lower legs when she uses the restroom pain radiates up to her whole body.She does have a h/o kidney stones. Patient reports that she does several allergies.Patient reports that she has been under alot of stress lately. * ROS:?General/Constitutional:?Comments??No fever or weakness.?Ophthalmologic:?Comments?no complaints.?ENT:?Comments?No complaints.?Respiratory:?Comments?No shortness of breath.?Cardiovascular:?Comments?No chest pain.?Gastrointestinal:?Comments?No abdominal pain.?Genitourinary:?Comments?no complaints.?Musculoskeletal:?Comments?no complaints.?Skin:?Comments?no rash.?Neurologic:?Comments?no headache.? * Medical History:?Kidney ston es, Hyperlipidemia, Asthma. * Surgical History:?vishal Hightower * Family History:?No Family Hi story documented..? * Social History:?Miscellaneous:?Caffeine: 1-2 cups per day. * Medications:?Taking Baclofen , Taking Pravastatin Sodium , Medication List reviewed and reconciled with the patient * Allergies:?Levaquin, Amoxici llin, Codeine, Ibuprofen, Baby Aspirin, Azithromycin, Biaxin, Latex, Tree Nuts, Bactrim, Clarithromycin, Erythromycin. Objective: * Vitals:?Temp:97.4F, HR:76/mi n, BP:143/91mm Hg, Wt:190.5lbs, BMI:27.33Index, Ht: 70 in, Oxygen sat %:98%. * Examination: ???General Examination: ?GENERAL APPEARANCE:?Well developed and well nourished.?EYES:?Pupils equal and reactive.?EARS:?Hearing intact.?NOSE:?Nares patent.?THROAT:?No sheree-pharyngeal lesions?.?NECK/THYROID:?Supple, non-tender.?SKIN:?Normal for age and race, Skin is warm and dry.?HEART:?Regular rate and rhythm.?LUNGS:?Clear to auscultation.?ABDOMEN:?Soft, non-tender.?EXTREMITIES:?Full range of motion. No clubbing, cyanosis, or edema.?NEUROLOGIC:?No evidence of focal neurological deficit.? Assessment: * Assessment: 1.?Frequent urination - R35. 0 (Primary)? Plan: * Treatment: ? Value Reference Range ?Glucose neg * ?Bilirubin neg * ?KET neg * ?SG 1.010 * ?Blood small * ?pH 6.0 * ?Protein neg * ?URO 0.2 * ?Nitrate neg * ?Leuk small * Procedure Codes:?78779 URINE -NO MICRO * Preventive Medicine:? ??Screenings:?FALL RISK SCREENING?Fall Risk Assessment:?No falls in the past year ??Counseling:?BP Management:?LIFESTYLE RECOMMENDATION:?Lifestyle education ?PHYSICAL ACTIVITY RECOMMENDATION:?Exercises education, guidance, and couneling ?Care goal follow-up plan:?BMI management provided?Yes ?Above Normal BMI Follow-up?Dietary management education, guidance, and counseling * Follow Up:?prn * Billing Information: * Visit Code:? 75610 Office Visit, New Pt., Level 3. * Procedure Codes:? 48850 URINE-NO MICRO. * Sign off status: Completed true * Appointment Provider:?SIS PEDERSEN NP Date:?01/16/2024 Generated for Sushant doe/Jw/Monicaitting on:?12/06/2024 04:29 PM EST History and Physical Notes * Examination Category Sub-Category Detail Notes Category Not es VV General Examination GENERAL APPEARANCE: Well developed and well nourished EYES: Pupils equal and china ctive EARS: Hearing intact NOSE: Nares patent THROAT: No sheree-pharyngeal le sions NECK/THYROID: Supple, non-tender HEART: Regular rate and rhy thm LUNGS: Clear to auscultatio n ABDOMEN: Soft, non-tender NEUROLOGIC: No evidence of focal neurological deficit SKIN: Normal for age and r shavon, Skin is warm and dry EXTREMITIES: Full range of motion . No clubbing, cyanosis, or edema
== END 2024-12-06 14:43 | disposition home or self-care (01) ==
LOC: HO.MAMMO 14:42
PROVIDERS: PCP Internal Medicine; Visit Provider Internal Medicine
DX: Z12.31 Encounter for screening mammogram for malignant neoplasm of breast (principal)
CPT/HCPCS: 77063; 77067

== ENCOUNTER → 2024-12-06 16:30 | Outpatient (BNV) | payer BC, SELFPAY | PROVIDERS: PCP Internal Medicine; Visit Provider Internal Medicine | DX: Z12.31 Encounter for screening mammogram for malignant neoplasm of breast (principal) | CPT/HCPCS: 77063; 77067 ==

== ENCOUNTER 2024-12-30 13:10 | Outpatient (AMB) | payer BC, SELFPAY ==
--- NOTE | 2024-12-30 13:38 | MHC.PC.OV ---
Vital Signs 12/30/24 13:42 Height 5 ft 10 in Weight 160 lb BMI 23.0 BP 108/66 Blood Pressure Location Rt brachial Position Sitting Respiration 18 Pulse 79 Pulse Source Pulse Oximeter Temp 98.2 F Temp Source Oral Pulse Oximetry (%) 96 Oxygen Delivery Method Room Air Intake Visit Reasons: Dizziness Intake Note: Pt is here today for a sick visit. Pt c/o dizziness and out of balance for 5-6 days. Allergies amoxicillin [AMOXICILLIN] Allergy (Severe, Verified 12/30/24 13:45) HIVES clarithromycin Allergy (Severe, Verified 12/30/24 13:45) HIVES erythromycin base [From ERYTHROCIN] Allergy (Severe, Verified 12/30/24 13:45) HIVES ibuprofen [IBUPROFEN] Allergy (Severe, Verified 12/30/24 13:45) ANAPHYLAXIS, difficulty breathing latex [LATEX] Allergy (Severe, Verified 12/30/24 13:45) HIVES levofloxacin [From LEVAQUIN] Allergy (Severe, Verified 12/30/24 13:45) HIVES NSAIDS (Non-Steroidal Anti-Inflamma [NSAIDS (NON-STEROIDAL ANTI-INFLAMMA] Allergy (Severe, Verified 12/30/24 13:45) ANAPHYLAXIS aspirin Allergy (Unknown, Verified 12/30/24 13:45) breathing difficulty azithromycin Allergy (Unknown, Verified 12/30/24 13:45) uncoded codeine [CODEINE] Allergy (Unknown, Verified 12/30/24 13:45) RASH naproxen [Aleve] Allergy (Unknown, Verified 12/30/24 13:45) throat closes up and itch nut - unspecified [NUTS] Allergy (Unknown, Verified 12/30/24 13:45) ANAPHYLAXIS sulfamethoxazole [From BACTRIM] Allergy (Unknown, Verified 12/30/24 13:45) HIVES trimethoprim [From BACTRIM] Allergy (Unknown, Verified 12/30/24 13:45) HIVES arythromycin Allergy (Unknown, Uncoded 12/30/24 13:45) uncoded Medication List - Last Reconciled 12/30/24 by Neida James MD albuterol sulfate 90 mcg/actuation 2 puffs PO Q4H PRN cetirizine (Zyrtec) 10 mg PO DAILY epinephrine 0.3 mg (0.3 mL) IM Q10M PRN ergocalciferol (vitamin D2) 1,250 mcg PO QWEEK meclizine 25 mg PO BID PRN sertraline 50 mg PO DAILY Tobacco use date assessed: 12/30/24 Dental Screening Dental Screen Date: 12/30/24 Did you have a dental visit in the last 12 months?: Yes Did you have a dental problem in the last 6 months where you did not have access to dental care?: No Was dental information given to patient?: Patient has dentist HPI Dizziness HPI Details Pt c/o positional vertigo when moving head down for a few days. pt c/o R ear tinnitus and fullness. She denies allergic rhinitis symptoms upper respiratory infection. Patient denies weakness or numbness in extremities or falling down but reports feeling off balance on and off PFSH Medical History Kidney stones Vitamin D deficiency Right hip pain Hematuria Dysuria Lower back pain Trochanteric bursitis Neutropenia Hyperlipidemia FH: cholecystectomy Asthma Anxiety GERD (gastroesophageal reflux disease) Failed back syndrome Surgical History Hx of tonsillectomy Hx of cervical spine surgery History of ERCP History of esophagogastroduodenoscopy (EGD) H/O colonoscopy No pertinent past surgical history Family History Father CVD (cardiovascular disease) Diabetes mellitus Hx of CABG Mother HTN (hypertension) Hyperlipidemia Unknown family medical history Melanoma Social History Household Members: Spouse Housing: House Are you a primary care transitions nurse to a significant other at home: No Do you presently have visiting nurse or other home services: No Alcohol intake: current Alcohol intake frequency: holidays/special occasions only Patient Tobacco Use Status: Never used Tobacco e-Cigarette/Vaping Use: Never Used service: No Current occupational status: retired Cognitive needs: No Hearing needs: No Vision needs: Yes Questionnaire PHQ-9 Over the last 2 weeks, how often have you been bothered by any of the following problems? 1. Little interest or pleasure in doing things: not at all 2. Feeling down, depressed, or hopeless: not at all 3. Trouble falling or staying asleep, or sleeping too much: several days 4. Feeling tired or having little energy: several days 5. Poor appetite or overeating: not at all 6. Feeling bad about yourself - or that you are a failure or have let yourself or your family down: not at all 7. Trouble concentrating on things, such as reading the newspaper or watching television: several days 8. Moving or speaking so slowly that other people could have noticed. Or the opposite - being so fidgety or restless that you have been moving around a lot more than usual: not at all 9. Thoughts that you would be better off or of hurting yourself in some way: not at all Total score: 3 Depression Screening Interpretation: Negative Depression Screening Done: Yes 79326 - PHQ-9 Billing: Yes Source: Developed by Drs. Tu Lu, Nazia Brand, Dean Turner and colleagues, with an educational chapin from [employer]. Thrive Questionnaire Date Thrive assessed: 12/30/24 I am a: Patient What is your living situation today?: I have a steady place to live Within the past 12 months, did the food you bought not last and you didn't have the money to get more?: Never true Within the past 12 months, did you worry whether your food would run out before you got money to buy more?: Never true Do you have trouble paying for medicines?: No Do you have trouble getting transportation to medical appointments?: No Do you have trouble paying your heating and electricity bill?: No Do you have trouble taking care of your child, family member or friend?: No Do you have trouble with day-to-day activities such as bathing, preparing meals, shopping, managing finances, etc.?: No Are you currently unemployed and looking for a job?: No Are you interested in more education?: No Please select the resources that you would like help with: None Currently or been in a relationship where the following occur: No concerns reported THRIVE Score: 0 AUDIT C Alcohol Use Questionnaire (AUDIT-C) 1. How often do you have a drink containing alcohol?: Never 3. How often do you have six or more drinks on one occasion?: Never Total Score: 0 YULIA-7 AMB Questionnaire YULIA-7 Date YULIA - 7 assessed: 02/07/25 Source: Developed by Drs. Tu Lu, Nazia Brand, Dean Turner and colleagues, with an educational chapin from [employer]. Review of Systems Const All systems reviewed & are unremarkable except as noted in HPI and below Reports no additional complaints Eyes Reports no additional complaints ENT Reports no additional complaints Card Reports no additional complaints Resp Reports no additional complaints GI Reports no additional complaints Reports no additional complaints Physical exam (Primary Care) Vital Signs: Last Vital Signs Temp 98.2 F 12/30/24 13:42 Pulse 79 12/30/24 13:42 Resp 18 12/30/24 13:42 BP 108/66 12/30/24 13:42 Pulse Ox 96 12/30/24 13:42 Oxygen Delivery Method Room Air 12/30/24 13:42 BMI result Body Mass Index 23.0 Tobacco/Smoking Status: Tobacco use Status Tobacco use date assessed 12/30/24 12/30/24 13:49 Patient Tobacco Use Status Never used Tobacco 12/30/24 13:49 e-Cigarette/Vaping Use Never Used 12/30/24 13:39 PHQ-9: PHQ-9 Score PHQ-9: Total score 3 12/30/24 13:39 Depression Screening Interpretation: Negative Thrive Assessment: Date of Thrive Assessment Date Thrive assessed 12/30/24 12/30/24 14:00 Currently or been in a relationship where the following occur: No concerns reported Const General: no acute distress HENMT Head: Yes normal to inspection Ears: hearing grossly normal bilaterally General nose exam: Normal external nose present Face and sinus: Yes normal facial exam Mouth: Normal oral and palatal mucosa present Eyes General: appearance normal, both eyes and all related structures EOM: EOMs intact bilaterally Neck Neck: Yes no lymphadenopathy and Yes supple Resp Effort & Inspection: normal respiratory effort Auscultation: clear to auscultation bilaterally Cardio Rhythm: regular rhythm Heart sounds: S1 normal heart sound present and S2 normal heart sound present Neuro Other: There is slight hesitancy when tandem walk following to the right Cranial nerves: Yes CN's II-XII intact bilaterally Motor exam (neuro): 5/5 motor strength present throughout Coordination: euhven-vv-[id number] test normal Romberg Test: Negative Extrem General: Yes no clubbing, cyanosis or edema Coding Level of Care Code Est Pt Level 4 (61872) Diagnoses TIA (transient ischemic attack) G45.9 Vertigo R42 Additional Codes PHQ-9 - 24886 - PHQ-9 Billing: Yes ([id number]) Assessment & Plan Assessment & Plan (1) TIA (transient ischemic attack): Code(s): G45.9 - Transient cerebral ischemic attack, unspecified Category: Medical Plan: Obtain CT of the brain to rule out TIA or CVA (2) Vertigo: Code(s): R42 - Dizziness and giddiness Category: Medical Plan: Meclizine is prescribed supportive care discussed with the patient. Patient will be referred to vestibular therapy if the symptoms persist Orders: Orders CT head/brain wo IV con Today G45.9 - Transient cerebral ischemic attack, unspecified, R42 - Dizziness and giddiness Medications: New meclizine 25 mg PO BID PRN 14 tabs 0RF dizziness
[2024-12-30 13:42] VITALS: BP 108/66; PULSE 79; RESP 18; TEMP 36.8; O2SAT 96; BMI 23.0
--- OUTSIDE RECORDS SUMMARY | 2024-12-30 14:51 | XMS_ITS ---
Author Organization [facility] Address [address] [place] [address] Care Team Providers Care Motion Picture Set Up Worker Name Role Phone Jacob ABURTO, Neida Primary Care Provider Unavaila Tu Grant Unavailable [phone] Riri Watson Unavailable Unavailable REASON FOR VISIT screening Encounters Encounter Location Date Provider Diagnosis [facility] [place] [address] [place] [id number] 10/09/2023 Tu Painter Plan Of Treatment No Information Progress Notes * DEBBI MAKDOB:1960 (64 yo F)Acc No.[id number]:10/09/2023 COLON WITH MAC Patient:AndreinaDEBBI MAK Provider:?Tu Painter MD :1960???Age:63 Y???Sex:Female D ate:10/09/2023 Address:[address] [place], [place] [id number] Pcp:Neida James MD Subjective: * Chief Complaints: * ???1. Screening. * Medical History:? Objective: * Vitals:? Assessment: Plan: * Treatment: * * The named appointment provid er may or may not be the originator of this progress note, and it is not deemed complete until electronically signed by the appointment provider. Sign off status: Pending * Provider:?Tu Painter MD Date:? 024 Generated for Printi ng/Faxing/eTransmitting on:?12/30/2024 02:51 PM EDT
--- OUTSIDE RECORDS SUMMARY | 2024-12-30 14:51 | XMS_ITS | Patient Health Record ---
Author Organization [facility] Address [address] [place] [address] Care Team Providers Care Horologist Name Role Phone Neida James MD Primary Care Provider Unavaila Tu Grant Unavailable [phone] Riri Watson Unavailable Unavailable Allergies Allergen (clinical drug ingredient) Drug/Non Drug Allergy documented on EMR Reaction Allergy Type Onset Date Status clarithromycin Clarithromycin Unknown Drug Allergy Active Tree Nuts Unknown Allergy Active azithromycin Azithromycin Unknown Drug Allergy A ctive Latex Gloves Unknown Drug Allergy Acti ve Levaquin Unknown Drug Allergy Active ibuprofen Ibuprofen Unknown Drug Allergy Active erythromycin Erythromycin Unknown Drug Allergy A ctive Codeine Phosphate Unknown Drug Allergy Active Biaxin Unknown Drug Allergy Active sulfamethoxazole / trimethoprim Bactrim Unknown Drug Allergy Active Baby Aspirin Unknown Drug Allergy Acti ve amoxicillin Amoxicillin Unknown Drug Allergy Act kris Reason For Referral No Information Medications Medication [...] Problem Status W/U Status Risk Notes Problem [id number] Colon cancer screening (Z12.11) Active confirmed Problem Diverticular disease of colon (560623854) Diverticulosis of large intestine without perforation or abscess without bleeding (K57.30) Active confirmed Problem [id number] Preprocedural examination (Z01.818) Active confirmed Plan Of Treatment Future Test Test Name Order Date COLONOSCOPY 04/25/2013 COLONOSCOPY 02/07/2023 Insurance Providers Payer Name Payer Address Payer Phone Subscriber Number Group Number Insured Name Patient Relationship to Insured Coverage Start Date [facility]age End Date [facility] [address] [place] [address] [id number] DEBBI MAK Self - patient is the insured Medical (General) History Medical History History ICD Code EGD [phone]--normal Asthma History of anxiety Hypoglycemia Denies ME,DM,CVA,renal disease Kidney stones Colonoscopy 2012 with only hyperplastic polyps Hyperlipidemia ERCP with a sphincterotomy by me in 2018 prior to a cholecystectomy Surgical History Surgery Date(Month/Year) Pilonidal cyst C-spine disk surgery Uterine ablation Tonsillectomy Cholecyst[place] [address] Radha garcia
--- OUTSIDE RECORDS SUMMARY | 2024-12-30 14:51 | XMS_ITS ---
Author Organization [facility] Address [address] [place] [address] Care Team Providers Care Burlap Spreader Name Role Phone Neida James MD Primary Care Provider Unavaila Tu Grant Unavailable [phone] Riri Watson Unavailable Unavailable REASON FOR VISIT screening Problems Problem Type SNOMED Code ICD Code Onset Dates Problem Status W/U Status Risk Notes Problem Diverticular disease of colon (670984434) Diverticulosis of large intestine without perforation or abscess without bleeding (K57.30) Active confirmed Encounters Encounter Location Date Provider [place] [facility] [place] [address] [place] [phone] 12/27/2023 Tu Painter Encounter for scre ening [...] Notes * DEBBI MAKDOB:1960 (64 yo F)Acc No.[id number]:12/27/2023 COLON WITH MAC Patient:?DEBBI MAK Provider:?Tu Painter MD :1960???Age:63 Y???Sex:Female D ate:12/27/2023 Address:[address] [place] [address] Pcp:Neida James MD Subjective: * Chief Complaints: * ???1. Screening. * Medical History:? Objective: * Vitals:? Assessment: * Assessment: 1.?Encounter for screening c olonoscopy - Z12.11 (Primary)???2.?Diverticulosis of large intestine without perforation or abscess without bleeding - K57.30???3.?Other hemorrhoids - K64.8??? Plan: * Treatment: * Procedure Codes:?19228 DIAGN OSTIC COLONOSCOPY, Modifiers: 33 * * The named appointment provid er may or may not be the originator of this progress note, and it is not deemed complete until electronically signed by the appointment provider. Sign off status: Pending * Provider:?Tu Painter MD Date:? 024 Generated for Sushant doe/Jw/eTransmitting on:?12/30/2024 02:51 PM EDT
--- OUTSIDE RECORDS SUMMARY | 2024-12-30 14:52 | XMS_ITS ---
Author Organization [facility] Address [address] [place], [place] [address] Care Team Providers Care Woodworking Machine Offbearer Name Role Phone SIS PEDERSEN Unavailable [phone] Allergies Allergen (clinical drug ingredient) Drug/Non Drug [...] Reviewed date:01/19/2024 11:56:59 AM Interpretation:Abnormal Performing Lab:[facility] [place], [address] [place] [address], Phone - [phone], Director - Masood Notes/Report: Clinical Information:SRC:UR Clinical [...] 01/16/2024 Encounters Encounter Location Date Provider Diagnosis [address] [id number] 01/16/2024 SIS PEDERSEN Frequent urination R35.0 Assessments [...] Notes * DEBBI MAK:[birth year] (63 yo M)Acc No.[id number]:01/16/2024 Progress Notes Patient:DEBBI DIALLO Appointment Provider:?SIS PEDERSEN NP :1960???Age:63 Y???Sex:Male Maurice e:01/16/2024 Address:[address] [place] [address], [facility] Subjective: * Chief Complaints: * ???1. Frequent [...] ?Nitrate neg * ?Leuk small * Procedure Codes:?14095 URINE -NO MICRO * Preventive Medicine:? ??Screenings:?FALL RISK SCREENING?Fall Risk Assessment:?No falls in the past year ??Counseling:?BP Management:?LIFESTYLE RECOMMENDATION:?Lifestyle education ?PHYSICAL ACTIVITY RECOMMENDATION:?Exercises education, guidance, and couneling ?Care goal follow-up plan:?BMI management provided?Yes ?Above Normal BMI Follow-up?Dietary management education, guidance, and counseling * Follow Up:?prn * Billing Information: * Visit Code:? 89558 Office Visit, New Pt., Level 3. * Procedure Codes:? 43261 URINE-NO MICRO. * Sign off status: Completed true * Appointment Provider:?SIS PEDERSEN NP Date:?01/16/2024 Generated for Sushant doe/Jw/eThumairasmitting on:?12/30/2024 02:51 PM EDT History and Physical Notes * Examination Category [...]
--- OUTSIDE RECORDS SUMMARY | 2024-12-30 14:52 | XMS_ITS ---
Author Organization [facility] Address [address] [place], [place] [address] Care Team Providers Care Supervisor Game Farm Name Role Phone SLAVA SIS Saran [phone] REASON FOR VISIT Laboratory Encounters Encounter Location Date Provider Diagnosis [address] [id number] 01/19/2024 SIS PEDERSEN Plan Of Treatment No Information Progress Notes * DEBBI MAK EDOB:1960 ( 63 yo M)Acc No.[id number]:01/19/2024 Patient:?DEBBI MAK :1960???Age:63 Y???Sex:Male Address:[place] [address] * true * Date:? Generated for Sushant doe/Jw/eTransmitting on:?12/30/2024 02:51 PM EDT
--- OUTSIDE RECORDS SUMMARY | 2024-12-30 14:52 | XMS_ITS | Patient Health Record ---
Author Organization [facility] Address [address] [place], [place] [address] Care Team Providers Care Freight Inspector Name Role Phone SIS PEDERSEN Unavailable [phone] Allergies Allergen (clinical drug ingredient) Drug/Non Drug [...] Reviewed date:01/19/2024 11:56:59 AM Interpretation:Abnormal Performing Lab:[facility] [address], Phone - [phone], Director - Masood Notes/Report: Clinical Information:SRC:UR Clinical [...] S Tetracycline S Tobramycin S Trimethoprim/Sulfa S Reason For Referral No Information Medications Medication SIG (Take, Route, Fr equency, Duration) Notes Start Date End Date Status Baclofen Active Pravastatin Sodium A ctive Vital Signs Heart Rate 76 /min 01/16/2024 Temperature 97.4 degrees Fahrenheit 01/16/2024 Oximetry 98 % 01/16/2024 Blood pressure diastolic 91 mm Hg 01/16/2024 Height 70 in 01/16/2024 Blood pressure systolic 143 mm Hg 01/16/2024 Weight 190.5 lbs 01/16/2024 BMI 27.33 kg/m2 01/16/2024 Encounters Encounter Location Date Provider Diagnosis [facility] [address] [place], [place] [phone] 01/16/2024 SIS PEDERSEN Frequent urination R35.[address] [id number] 01/19/2024 SIS PEDERSEN Assessments Encounter Date Diagnosis (ICD Code) Assessment Notes Treatment Notes Treatment Clinical Notes Section Notes 01/16/2024 Frequent urination (ICD-10 - R35.0) Plan Of Treatment No Information Insurance Providers Payer Name Payer Address Payer Phone Subscriber Number Group Number Insured Name Patient Relationship to Insured Coverage Start Date Coverage End Date [facility] [address] [place] [address] [id number] DEBBI MAK Self - patient is the insured Medical (General) History Medical History History ICD Code kidney stones hyperlipidemia asthma Surgical History Surgery Date(Month/Year) gallbladder
--- OUTSIDE RECORDS SUMMARY | 2024-12-30 14:52 | XMS_ITS | Clinical Summary ---
Author Organization [facility] Address [address] [place] [address] [address] [address] Phone Care Team Providers Care Junior Account Manager Name Role Phone Neida James MD Primary Care Provider Allergies Active Allergy Reactions Criticality Noted Date Comments Amoxicillin 12/22/2021 Aspirin 12/22/2021 Azithromycin 12/22/2021 Clarithromycin 12/22/2021 Codeine 12/22/2021 Erythromycin 12/22/2021 Ibuprofen 12/22/2021 Latex Other (see comments) 04/25/2013 Levofloxacin 12/22/2021 Naproxen 12/22/2021 Nsaids 12/22/2021 Sulfamethizole 12/22/2021 Trimethoprim 12/22/2021 Medications baclofen (LIORESAL) 10 MG tablet Take 1 tablet by mouth if needed 2 Active ergocalciferol 1.25 MG (57077 UT) capsule Take 50,000 Units by mouth [...] patient's age to complete this topic Insurance [facility] Care Teams Junior Account Manager Relationship Specialty Start Date End Date Neida James MD 1960 [place] [address] PCP - General Internal Medicine 09/09/21
--- OUTSIDE RECORDS SUMMARY | 2024-12-30 14:52 | XMS_ITS ---
Author Organization [facility] Address [address] [place] [address] Care Team Providers Care Cook Boat Name Role Phone Neida James MD Primary Care Provider UnavailTu Ko [phone] Riri Watson Unavailable Unavailable REASON FOR VISIT check [facility] [place] referral for proc on 12-27-[address] Painter Encounters Encounter Location Date Provider Diagnosis [facility] [address] [place] [address] 11/27/2023 Tu Painter Plan Of Treatment No Information Progress Notes * DEBBI MAKDOB:1960 (63 yo F)Acc No.[id number]:11/27/2023 Patient:?DEBBI MAK :1960???Age:63 Y???Sex:Female Address:[address] [place] [address] * true * Date:? Generated for Cheti nader/Jw/eTransmitting on:?12/30/2024 02:51 PM EDT
== END 2024-12-30 14:58 | disposition home or self-care (01) ==
LOC: HO.HMCC 13:10
PROVIDERS: PCP Internal Medicine; Visit Provider Internal Medicine
DX: G45.9 Transient cerebral ischemic attack, unspecified (principal); R42 Dizziness and giddiness

== ENCOUNTER → 2024-12-30 13:10 | Outpatient (BNVA) | payer BC, SELFPAY | PROVIDERS: PCP Internal Medicine; Visit Provider Internal Medicine | DX: G45.9 Transient cerebral ischemic attack, unspecified (principal); R42 Dizziness and giddiness | CPT/HCPCS: 96127 ==

== ENCOUNTER 2025-01-02 12:50 | Outpatient (REF) | payer BC, SELFPAY ==
--- NOTE | ~2025-01-02 | CT_ITS ---
EXAMINATION: CT HEAD WITHOUT CONTRAST CLINICAL INFORMATION: G45.9 - Transient cerebral ischemic attack, unspecified COMPARISON: July 19, 2018. TECHNIQUE: Contiguous axial imaging was performed from the skull base to vertex without intravenous administration of contrast. This CT examination was performed using dose optimization techniques as appropriate, variously including the following: *Automated exposure control *Adjustment of mA and/or kV according to patient size (this includes techniques or standardized protocols for targeted exams where dose is matched to indication/reason for exam; i.e. extremities or head) *Use of iterative reconstruction technique DLP: 793 mGy-cm FINDINGS: No acute intracranial hemorrhage, mass effect, midline shift, hydrocephalus or herniation. Haynes-white matter differentiation is normal. Posterior cranial fossa contents demonstrated no acute intracranial hemorrhage or mass effect. There is CSF prominence in the sella turcica suggesting diaphragmatic sella insufficiency. Craniocervical junction is intact and normal. No air-fluid levels in the paranasal sinuses. Mucosal thickening, left maxillary sinus. Tympanic cavities and mastoid air cells are aerated. CT/CT head/brain wo IV con IMPRESSION: No acute intracranial hemorrhage. No acute brain abnormality. Electronically signed by: Flip Oglesby MD 01/02/2025 02:47 PM EDT
--- OUTSIDE RECORDS SUMMARY | 2025-01-02 13:54 | XMS_ITS | Patient Health Record ---
Author Organization [facility] Address [address] [place] [address] Care Team Providers Care Fashion Stylist Name Role Phone Neida James MD Primary Care Provider Unavaila Tu Grant Unavailable [phone] Riri Watson Unavailable Unavailable Allergies Allergen (clinical drug ingredient) Drug/Non Drug Allergy documented on EMR Reaction Allergy Type Onset Date Status Codeine Phosphate Unknown Drug Allergy Active Biaxin [...] erythromycin Erythromycin Unknown Drug Allergy A ctive Reason For Referral No Information Medications Medication [...] Problem Status W/U Status Risk Notes Problem [id number] Colon cancer screening (Z12.11) Active confirmed Problem Diverticular disease of colon (632475114) Diverticulosis of large intestine without perforation or abscess without bleeding (K57.30) Active confirmed Problem [id number] Preprocedural examination (Z01.818) Active confirmed Plan Of Treatment Future Test Test Name Order Date COLONOSCOPY 04/25/2013 COLONOSCOPY 02/07/2023 Insurance Providers Payer Name Payer Address Payer Phone Subscriber Number Group Number Insured Name Patient Relationship to Insured Coverage Start Date Coverage End Date [facility] [address] [place] [address] [id number] DEBBI MAK Self - patient is the insured Medical (General) History Medical History History ICD Code EGD [phone]--normal Asthma History of anxiety Hypoglycemia Denies AK,DM,CVA,renal disease Kidney stones Colonoscopy 2012 with only hyperplastic polyps Hyperlipidemia ERCP with a sphincterotomy by me in 2018 prior to a cholecystectomy Surgical History Surgery Date(Month/Year) Pilonidal cyst C-spine disk surgery Uterine ablation Tonsillectomy [place]cyst[place] [address] Radha garcia
--- OUTSIDE RECORDS SUMMARY | 2025-01-02 13:54 | XMS_ITS | Patient Health Record ---
Author Organization [facility] Address [address] [place], [place] [address] Care Team Providers Care Sample Collector Name Role Phone SIS PEDERSEN Unavailable [phone] Allergies Allergen (clinical drug ingredient) Drug/Non Drug [...] Reviewed date:01/19/2024 11:56:59 AM Interpretation:Abnormal Performing Lab:[facility] [address], Phone - [phone], Director - Masood Notes/Report: Clinical Information:SRC:UR Clinical [...] Provider Diagnosis [facility] [address] [place], [place] [phone] 01/16/2024 SIS PEDERSEN Frequent urination R35.[address] [id number] 01/19/2024 SIS PEDERSEN Assessments Encounter Date Diagnosis (ICD Code) Assessment Notes Treatment Notes Treatment Clinical Notes Section Notes 01/16/2024 Frequent urination (ICD-10 - R35.0) Plan Of Treatment No Information Insurance Providers Payer Name Payer Address Payer Phone Subscriber Number Group Number Insured Name Patient Relationship to Insured Coverage Start Date Coverage End Date [facility] [address] [place] [address] [id number] DEBBI MAK Self - patient is the insured Medical (General) History Medical History History ICD Code kidney stones hyperlipidemia asthma Surgical History Surgery Date(Month/Year) gallbladder
--- OUTSIDE RECORDS SUMMARY | 2025-01-02 13:54 | XMS_ITS ---
Author Organization [facility] Address [address] [place] [address] Care Team Providers Care Booking Supervisor Name Role Phone Neida James MD Primary Care Provider UnavailTu Ko [phone] Riri Watson Unavailable Unavailable REASON FOR VISIT check [facility] [place] blue referral for proc on 12-27-[address] Painter Encounters Encounter Location Date Provider Diagnosis [facility] [address] [place] [address] 11/27/2023 Tu Painter Plan Of Treatment No Information Progress Notes * DEBBI MAKDOB:1960 (63 yo F)Acc No.[id number]:11/27/2023 Patient:?DEBBI MAK :1960???Age:63 Y???Sex:Female Address:[address] [place] [address] * true * Date:? Generated for Cheti nader/Jw/eTransmitting on:?01/02/2025 01:54 PM EDT
--- OUTSIDE RECORDS SUMMARY | 2025-01-02 13:54 | XMS_ITS ---
Author Organization [facility] Address [address] [place] [address] Care Team Providers Care Flyer Repairer Name Role Phone Neida James MD Primary Care Provider Unavaila Tu Grant Unavailable [phone] Riri Watson Unavailable Unavailable REASON FOR VISIT screening Problems Problem Type SNOMED Code ICD Code Onset Dates Problem Status W/U Status Risk Notes Problem Diverticular disease of colon (208250443) Diverticulosis of large intestine without perforation or abscess without bleeding (K57.30) Active confirmed Encounters Encounter Location Date Provider Diagnosis [facility] [place] [address] [place] [phone] 12/27/2023 Tu Painter Encounter for scre ening [...] Notes * DEBBI MAKDOB:1960 (64 yo F)Acc No.[id number]:12/27/2023 COLON WITH MAC Patient:?DEBBI MAK Provider:?Tu Painter MD :1960???Age:63 Y???Sex:Female D ate:12/27/2023 Address:[address] [place] [address] Pcp:Neida James MD Subjective: * Chief Complaints: * ???1. Screening. * Medical History:? Objective: * Vitals:? Assessment: * Assessment: 1.?Encounter for screening c olonoscopy - Z12.11 (Primary)???2.?Diverticulosis of large intestine without perforation or abscess without bleeding - K57.30???3.?Other hemorrhoids - K64.8??? Plan: * Treatment: * Procedure Codes:?20732 DIAGN OSTIC COLONOSCOPY, Modifiers: 33 * * The named appointment provid er may or may not be the originator of this progress note, and it is not deemed complete until electronically signed by the appointment provider. Sign off status: Pending * Provider:?Tu Painter MD Date:? 024 Generated for Sushant doe/Jw/eTransmitting on:?01/02/2025 01:53 PM EDT
--- OUTSIDE RECORDS SUMMARY | 2025-01-02 13:54 | XMS_ITS ---
Author Organization [facility] Address [address] [place] [address] Care Team Providers Care Unload Associate Name Role Phone Jacob ABURTO, Neida Primary Care Provider Unavaila Tu Grant Unavailable [phone] Riri Watson Unavailable Unavailable REASON FOR VISIT screening Encounters Encounter Location Date Provider Diagnosis [facility] Out[facility] [address] [place] [phone] 10/09/2023 Tu Painter Plan Of Treatment No Information Progress Notes * DEBBI MAKDOB:1960 (64 yo F)Acc No.[id number]:10/09/2023 COLON WITH MAC Patient:AndreinaDEBBI MAK Provider:?Tu Painter MD :1960???Age:63 Y???Sex:Female D ate:10/09/2023 Address:[address] [place], [place] [phone] Pcp:Neida James MD Subjective: * Chief Complaints: [...] Painter MD Date:? 024 Generated for Printi ng/Faaletag/eTransmitting on:?01/02/2025 01:53 PM EDT
--- OUTSIDE RECORDS SUMMARY | 2025-01-02 13:55 | XMS_ITS ---
Author Organization [facility] Address [address] [place], [place] [address] Care Team Providers Care Credit Union Field Examiner Name Role Phone SIS PEDERSEN Unavailable [phone] Allergies Allergen (clinical drug ingredient) Drug/Non Drug [...] Reviewed date:01/19/2024 11:56:59 AM Interpretation:Abnormal Performing Lab:[facility] [place], [address] [place] [address], Phone - [phone], Director - Masood Notes/Report: Clinical Information:SRC:UR Clinical [...] 01/16/2024 Encounters Encounter Location Date Provider Diagnosis [address] [phone] 01/16/2024 SIS PEDERSEN Frequent urination R35.0 Assessments [...] Notes * DEBBI MAK:[birth year]02 (63 yo M)Acc No.[id number]:01/16/2024 Progress Notes Patient:DEBBI DIALLO Appointment Provider:?SIS PEDERSEN NP :1960???Age:63 Y???Sex:Male Maurice e:01/16/2024 Address:[address] [place] [address], [facility] Subjective: * Chief Complaints: * ???1. Frequent [...] ?Nitrate neg * ?Leuk small * Procedure Codes:?59527 URINE -NO MICRO * Preventive Medicine:? ??Screenings:?FALL RISK SCREENING?Fall Risk Assessment:?No falls in the past year ??Counseling:?BP Management:?LIFESTYLE RECOMMENDATION:?Lifestyle education ?PHYSICAL ACTIVITY RECOMMENDATION:?Exercises education, guidance, and couneling ?Care goal follow-up plan:?BMI management provided?Yes ?Above Normal BMI Follow-up?Dietary management education, guidance, and counseling * Follow Up:?prn * Billing Information: * Visit Code:? 64533 Office Visit, New Pt., Level 3. * Procedure Codes:? 71735 URINE-NO MICRO. * Sign off status: Completed true * Appointment Provider:?SIS PEDERSEN NP Date:?01/16/2024 Generated for Sushant doe/Jw/eThumairasmitting on:?01/02/2025 01:54 PM EDT History and Physical Notes * [...]
--- OUTSIDE RECORDS SUMMARY | 2025-01-02 13:55 | XMS_ITS | Clinical Summary ---
Author Organization [facility] Address [address] [place] [address] [address] [address] Phone Care Team Providers Care Integration Lead Name Role Phone Neida James MD Primary Care Provider [phone] Allergies Active Allergy Reactions Criticality Noted Date Comments Amoxicillin 12/22/2021 Aspirin 12/22/2021 Azithromycin 12/22/2021 Clarithromycin 12/22/2021 Codeine 12/22/2021 Erythromycin 12/22/2021 Ibuprofen 12/22/2021 Latex Other (see comments) 04/25/2013 Levofloxacin 12/22/2021 Naproxen 12/22/2021 Nsaids 12/22/2021 Sulfamethizole 12/22/2021 Trimethoprim 12/22/2021 Medications baclofen (LIORESAL) 10 MG tablet Take 1 tablet by mouth if needed 2 Active ergocalciferol 1.25 MG (55658 UT) capsule Take 50,000 Units by mouth [...] Colorectal Cancer Screening: Sigmoidoscopy 2010 Influenza Vaccine (Season Ended) 2025 Hepatitis B Vaccine Aged Out No longe r eligible based on patient's age to complete this topic Insurance [facility] Care Teams Integration Lead Relationship Specialty Start Date End Date Neida James MD [address] [place] [address] PCP - General Internal Medicine 09/09/21
--- OUTSIDE RECORDS SUMMARY | 2025-01-02 13:55 | XMS_ITS ---
Author Organization [facility] Address [address] [place], [place] [address] Care Team Providers Care Office Auditor Name Role Phone SLAVA SIS Saran [phone] REASON FOR VISIT Laboratory Encounters Encounter Location Date Provider Diagnosis [address] [phone] 01/19/2024 SIS PEDERSEN Plan Of Treatment No Information Progress Notes * DEBBI MAK EDOB:1960 ( 63 yo M)Acc No.[id number]:01/19/2024 Patient:?DEBBI MAK :1960???Age:63 Y???Sex:Male Address:[place] [address] * true * Date:? Generated for Sushant doe/Jw/eTransmitting on:?01/02/2025 01:54 PM EDT
== END 2025-01-02 12:51 | disposition home or self-care (01) ==
LOC: HO.CT 12:50
PROVIDERS: PCP Internal Medicine; Visit Provider Internal Medicine
DX: G45.9 Transient cerebral ischemic attack, unspecified (principal); R42 Dizziness and giddiness
CPT/HCPCS: 70450

== ENCOUNTER → 2025-01-02 12:52 | Outpatient (BNV) | payer BC, SELFPAY | PROVIDERS: PCP Internal Medicine; Visit Provider Radiology Diagnostic Radiology | DX: G45.9 Transient cerebral ischemic attack, unspecified (principal) | CPT/HCPCS: 70450 ==

== ENCOUNTER 2025-02-19 13:58 | Outpatient (REF) | payer BC, SELFPAY ==
[2025-02-19 14:13] LABS: MANUAL DIFF FLAG NO
[2025-02-19 14:23] LABS: Basophils Percent Auto 0.5 % (0-2); Eosinophils Absolute Auto 0.1 X10*3/uL (0.0-0.4); Eosinophils Percent Auto 3.5 % (0-4); Hematocrit 45.3 % (37.0-47.0); Hemoglobin 15.1 g/dl (12.0-16.0); Imm Gran Abs Auto 0.01 X10*3/uL (0.00-0.03); Imm Gran Pct Auto 0.2 % (0.0-0.4); Lymphocytes Absolute Auto 1.2 X10*3/uL (1.2-4.9); Lymphocytes Percent Auto 30.2 % (20-40); Mean Corpuscular HGB Conc 33.3 g/dl (31.0-35.0); Mean Corpuscular Hemoglobin 31.7 pg (27.0-33.0); Mean Platelet Volume 9.3 fL (9.4-12.3); Monocytes Absolute Auto 0.4 X10*3/uL (0.1-1.2); Monocytes Percent Auto 8.7 % (2-11); Neutrophils Absolute Auto 2.3 x10*3/uL (2.0-8.3); Neutrophils Percent Auto 56.9 % (45-73); Platelet Count 151 X10*3/uL (160-400); Red Blood Count 4.77 X10*6/uL (4.20-5.50); Red Cell Distribution Width 11.9 % (11.0-16.0)
--- OUTSIDE RECORDS SUMMARY | 2025-02-19 14:28 | XMS_ITS ---
Author Organization [facility] Address [address] [place] [address] Care Team Providers Care Administrative Judge Name Role Phone Neida James MD Primary Care Provider Unavaila Tu Grant Unavailable [phone] Riri Watson Unavailable Unavailable REASON FOR VISIT screening Problems Problem Type SNOMED Code ICD Code Onset Dates Problem Status W/U Status Risk Notes Problem Diverticular disease of colon (137814189) Diverticulosis of large intestine without perforation or abscess without bleeding (K57.30) Active confirmed Encounters Encounter Location Date Provider Diagnosis [facility] Out[place] [address] [place] [phone] 12/27/2023 Tu Painter Encounter for scre ening [...] Notes * DEBBI MAKDOB:1960 (64 yo F)Acc No.[id number]:12/27/2023 COLON WITH MAC Patient:?DEBBI MAK Provider:?Tu Painter MD :1960???Age:63 Y???Sex:Female D ate:12/27/2023 Address:[address] [place] [address] Pcp:Neida James MD Subjective: * Chief Complaints: * ???1. Screening. * Medical History:? Objective: * Vitals:? Assessment: * Assessment: 1.?Encounter for screening c olonoscopy - Z12.11 (Primary)???2.?Diverticulosis of large intestine without perforation or abscess without bleeding - K57.30???3.?Other hemorrhoids - K64.8??? Plan: * Treatment: * Procedure Codes:?89691 DIAGN OSTIC COLONOSCOPY, Modifiers: 33 * * The named appointment provid er may or may not be the originator of this progress note, and it is not deemed complete until electronically signed by the appointment provider. Sign off status: Pending * Provider:?Tu Painter MD Date:? 024 Generated for Sushant doe/Jw/eThumairasmitting on:?02/19/2025 02:28 PM EDT
--- OUTSIDE RECORDS SUMMARY | 2025-02-19 14:28 | XMS_ITS | Patient Health Record ---
Author Organization [facility] Address [address] [place] [address] Care Team Providers Care Card Grinder Helper Name Role Phone Neida James MD Primary Care Provider Unavaila Tu Grant Unavailable [phone] Riri Watson Unavailable Unavailable Allergies Allergen (clinical drug ingredient) Drug/Non Drug Allergy documented on EMR Reaction Allergy Type Onset Date Status Biaxin Unknown Drug Allergy Active sulfamethoxazole / [...] Problem Status W/U Status Risk Notes Problem 982834810 Colon cancer screening (Z12.11) Active confirmed Problem Diverticulosis o f large intestine without perforation or abscess without bleeding (K57.30) Active confirmed Problem 551274663011737 Preprocedural examination (Z01.818) Active confirmed Plan Of Treatment Future Test Test Name Order Date COLONOSCOPY 04/25/2013 COLONOSCOPY 02/07/2023 Insurance Providers Payer Name Payer Address Payer Phone Subscriber Number Group Number Insured Name Patient Relationship to Insured Coverage Start Date Coverage End Date [facility] PROFESSIONAL CLAIMS [address] [place] [address] [id number] DEBBI MAK Self - patient is the insured Medical (General) History Medical History History ICD Code EGD 6-10-8883--normal Asthma History of anxiety Hypoglycemia Denies DC,DM,CVA,renal disease Kidney stones Colonoscopy 2012 with only hyperplastic polyps Hyperlipidemia ERCP with a sphincterotomy by me in 2018 prior to a cholecystectomy Surgical History Surgery Date(Month/Year) Pilonidal cyst C-spine disk surgery Uterine ablation Tonsillectomy Cholecyst[place] [address] Radha garcia
--- OUTSIDE RECORDS SUMMARY | 2025-02-19 14:28 | XMS_ITS ---
Author Organization [facility] Address [address] [place] [address] Care Team Providers Care Forensic Locksmith Name Role Phone Jacob ABURTO, Neida Primary Care Provider Unavaila Tu Grant Unavailable [phone] Riri Watson Unavailable Unavailable REASON FOR VISIT screening Encounters Encounter Location Date Provider Diagnosis [facility] Outpatient [address] [place] [phone] 10/09/2023 Tu Painter Plan Of Treatment No Information Progress Notes * EDBBI MAKDOB:1960 (64 yo F)Acc No.[id number]:10/09/2023 COLON WITH MAC Patient:AndreinaDEBBI MAK Provider:?Tu Painter MD :1960???Age:63 Y???Sex:Female D ate:10/09/2023 Address:[address] [place], [place] [address] Pcp:Neida James MD Subjective: * Chief Complaints: [...] MD Date:? 024 Generated for Printi ng/Faxing/eTransmitting on:?02/19/2025 02:28 PM EDT
--- OUTSIDE RECORDS SUMMARY | 2025-02-19 14:29 | XMS_ITS | Clinical Summary ---
Author Organization [facility] Address [address] [place] [address] [address] [address] Phone Care Team Providers Care Laborer Operator Name Role Phone Neida James MD Primary Care Provider [phone] Allergies Active Allergy Reactions Criticality Noted Date Comments Amoxicillin 12/22/2021 Aspirin 12/22/2021 Azithromycin 12/22/2021 Clarithromycin 12/22/2021 Codeine 12/22/2021 Erythromycin 12/22/2021 Ibuprofen 12/22/2021 Latex Other (see comments) 04/25/2013 Levofloxacin 12/22/2021 Naproxen 12/22/2021 Nsaids 12/22/2021 Sulfamethizole 12/22/2021 Trimethoprim 12/22/2021 Medications baclofen (LIORESAL) 10 MG tablet Take 1 tablet by mouth if needed 2 Active ergocalciferol 1.25 MG (43366 UT) capsule Take 50,000 Units by mouth [...] Comments Breast Cancer Screening 1960 Pneumococcal Vaccine: 50+ Ye ars (1 of 2 - PCV) 1980 Colorectal Cancer Screening: Annual FOBT 2010 Colorectal Cancer Screening: Colonoscopy 2010 Colorectal Cancer Screening: Sigmoidoscopy 2010 Influenza Vaccine (Season Ended) 2025 Hepatitis B Vaccine Aged Out No longe r eligible based on patient's age to complete this topic Insurance [facility] Care Teams Laborer Operator Relationship Specialty Start Date End Date Neida James MD 1960 [place] [address] PCP - General Internal Medicine 09/09/21
--- OUTSIDE RECORDS SUMMARY | 2025-02-19 14:29 | XMS_ITS ---
Author Organization [facility] Address [address] [place] [address] Care Team Providers Care Corn Shredder Name Role Phone Neida James MD Primary Care Provider UnavailTu Ko [phone] Riri Watson Unavailable Unavailable REASON FOR VISIT check [facility] [place] for proc on 12-27-[address] Painter Encounters Encounter Location Date Provider Diagnosis [facility] [address] [place] [id number] 11/27/2023 Tu Painter Plan Of Treatment No Information Progress Notes * DEBBI MAKDOB:1960 (63 yo F)Acc No.[id number]:11/27/2023 Patient:?DEBBI MAK :1960???Age:63 Y???Sex:Female Address:[address] [place] [address] * true * Date:? Generated for Cheti nader/Jw/eTransmitting on:?02/19/2025 02:28 PM EDT
--- OUTSIDE RECORDS SUMMARY | 2025-02-19 14:29 | XMS_ITS | Patient Health Record ---
Author Organization [facility] Address [address] [place], [place] [address] Care Team Providers Care Radio Repairer Domestic Name Role Phone SIS PEDERSEN Unavailable [phone] Allergies Allergen (clinical drug ingredient) Drug/Non Drug [...] Allergy Active Tree Nuts Unknown Allergy Active Reason For Referral No Information Medications Medication SIG (Take, Route, Fr equency, Duration) Notes Start Date End Date Status Baclofen Active Pravastatin Sodium A ctive Social History Social History Additional Details Category Social Info Options Details Miscellaneous: Caffeine: 1-2 cups per day Plan Of Treatment No Information Insurance Providers Payer Name Payer Address Payer Phone Subscriber Number Group Number Insured Name Patient Relationship to Insured Coverage Start Date Coverage End Date [facility] [address] [place] [address] [id number] DEBBI MAK Self - patient is the insured Medical (General) History Medical History History ICD Code kidney stones hyperlipidemia asthma Surgical History Surgery Date(Month/Year) gallbladder
[2025-02-19 14:51] LABS: Appearance Urine Clear; Color Urine Yellow; Glucose Urine UA Negative (Negative); Leukocyte Esterase Urine Small (1+) (Negative); Nitrite Urine Negative (Negative); Specific Gravity - Urine <= 1.005 (1.005-1.025); UMIC TRIGGER UA YES; Urine Blood Negative (Negative); Urine Ketones Negative (Negative); Urine Protein Negative (Neg-Trace)
[2025-02-19 14:52] LABS: Anion Gap 14 (12-20); Blood Urea Nitrogen 23 mg/dL (9-16); Carbon Dioxide 23 mmol/L (22-29); Chloride 105 mmol/L (96-108); Estimated Glomerular Filt Rate > 60; Potassium 4.5 mmol/L (3.3-5.1); Sodium 137 mmol/L (135-145); Uric Acid 3.5 mg/dL (2.4-5.7)
[2025-02-19 14:58] LABS: Bacteria Urine Trace (None Seen); Hyaline Casts Urine 0-2 /LPF (0-2); RBC Urine 0-2 /HPF (0-2); Squamous Epithelial Cell Urine 0-2 /HPF (0-2); WBC Urine 0-5 /HPF (0-5)
== END 2025-02-19 13:59 | disposition home or self-care (01) ==
LOC: HO.LAB 13:58
PROVIDERS: PCP Internal Medicine; Visit Provider Internal Medicine Nephrology
DX: N20.0 Calculus of kidney (principal); R10.9 Unspecified abdominal pain
CPT/HCPCS: 36415; 80051; 81001; 82565; 84520; 84550; 85025; 87086

== ENCOUNTER 2025-03-21 13:18 | Outpatient (REF) | payer BC, SELFPAY ==
--- OUTSIDE RECORDS SUMMARY | 2023-10-09 03:30 | XMS_ITS ---
Author Organization [facility] Address [address] [place] [address] Care Team Providers Care Step Down Specialist Name Role Phone Jacob ABURTO, Neida Primary Care Provider Unavaila Tu Grant [phone] Riri Watson Unavailable Unavailable REASON FOR VISIT screening Encounters Encounter Location Date Provider Diagnosis [facility] [address] [place] [phone] 10/09/2023 Tu Painter Plan Of Treatment No Information Progress Notes * DEBBI MAKDOB:1960 (64 yo F)Acc No.[id number]:10/09/2023 COLON WITH MAC Patient: DEBBI YOUNG Provider: Michael Painter MD :1960 A ge:63 Y S ex:Female Date:10/09/2023 Address:[address] [place], [place] [id number] Pcp:Neida James MD Subjective: * Chief Complaints: * 1 . Screening. * Medical History: Objective: * Vitals: Assessment: Plan: * Treatment: * * The named appointment provid er may or may not be the originator of this progress note, and it is not deemed complete until electronically signed by the appointment provider. Sign off status: Pending * Provider: Michael Painter MD Date: 0 10/09/2023 Generated for Printi ng/Faxing/eTransmitting on: 0 03/21/2025 01:21 PM EDT
--- NOTE | ~2025-03-21 | US_ITS ---
EXAMINATION: Ultrasound renal bilaterally. CLINICAL INFORMATION: Unspecified abdominal pain. COMPARISON: June 16, 2022. TECHNIQUE: Real-time ultrasound kidneys using grayscale technique. FINDINGS: Right kidney: 11 x 4 x 5 cm. Normal echotexture. Normal renal cortical thickness. No hydronephrosis. No gross solid or cystic lesion. Left kidney: 12 x 5 x 5 cm. Normal echotexture. Normal renal cortical thickness. No hydronephrosis. There is a 1 cm round anechoic lesion in the lower pole without septations or nodular components. There is a 0.5 cm hyperechoic lesion in the lower pole. US/US renal BI IMPRESSION: Nonobstructing nephrolithiasis, left kidney. 1 cm simple cyst, left kidney. No hydronephrosis. Electronically signed by: Flip Oglesby MD 03/21/2025 03:33 PM EDT
== END 2025-03-21 13:19 | disposition home or self-care (01) ==
LOC: HO.HMGCX 13:18
PROVIDERS: PCP Internal Medicine; Visit Provider Internal Medicine Nephrology
DX: R10.9 Unspecified abdominal pain (principal); N20.0 Calculus of kidney
CPT/HCPCS: 76775

== ENCOUNTER → 2025-03-21 13:41 | Outpatient (BNV) | payer BC, SELFPAY | PROVIDERS: PCP Internal Medicine; Visit Provider Radiology Diagnostic Radiology | DX: N28.1 Cyst of kidney, acquired (principal) | CPT/HCPCS: 76775 ==

== ENCOUNTER 2025-04-23 11:28 | Outpatient (AMB) | payer BC, SELFPAY ==
--- OUTSIDE RECORDS SUMMARY | 2023-12-27 05:30 | XMS_ITS ---
Author Organization [facility] Address [address] [place] [address] Care Team Providers Care Hyperion Essbase Developer Name Role Phone Neida James MD Primary Care Provider Unavaila Tu Grant Unavailable [phone] Riri Watson Unavailable Unavailable REASON FOR VISIT screening Problems Problem Type SNOMED Code ICD Code Onset Dates Problem Status W/U Status Risk Notes Problem Diverticular disease of colon ([id number]) Diverticulosis of large intestine without perforation or abscess without bleeding (K57.30) Active confirmed Encounters Encounter Location Date Provider Diagnosis [facility] [place] [address] [place] [id number] 12/27/2023 Tu Painter Encounter for scre ening colonoscopy Z12.11 ; Diverticulosis of large intestine without perforation or abscess without bleeding K57.30 and Other hemorrhoids K64.8 Assessments Encounter Date Diagnosis (ICD Code) Assessment Notes Treatment Notes Treatment Clinical Notes Section Notes 12/27/2023 Encounter for screening colonoscopy (ICD-10 - Z12.11) 12/27/2023 Diverticulosis of large intestine without perforation or abscess without bleeding (ICD-10 - K57.30) 12/27/2023 Other hemorrhoids (ICD-10 - K64.8) Plan Of Treatment No Information Progress Notes * DEBBI MAKDOB:1960 (65 yo F)Acc No.[id number]:12/27/2023 COLON WITH MAC Patient: Sania KARIMIDEBBI Provider: Michael Painter MD :1960 A ge:63 Y S ex:Female Date:12/27/2023 Address:[address] [place] [address] Pcp:Neida James MD Subjective: * Chief Complaints: * 1 . Screening. * Medical History: Objective: * Vitals: Assessment: * Assessment: 1. E ncounter for screening colonoscopy - Z12.11 (Primary) 2 . D iverticulosis of large intestine without perforation or abscess without bleeding - K57.30 3 .?Other hemorrhoids - K64.8 Plan: * Treatment: * Procedure Codes: 4 5378 DIAGNOSTIC COLONOSCOPY, Modifiers: 33 * * The named appointment provid er may or may not be the originator of this progress note, and it is not deemed complete until electronically signed by the appointment provider. Sign off status: Pending * Provider: Michael Painter MD Date: 0 12/27/2023 Generated for Sushant doe/Jw/Sheritaransmitting on: 0 04/23/2025 12:26 PM EDT
--- NOTE | 2025-04-23 11:59 | HO.NEPHOV ---
Vital Signs 04/23/25 12:01 Height 5 ft 10 in Weight 163 lb 2 oz BMI 23.4 BP 110/70 Blood Pressure Location Rt brachial Position Sitting Pulse 76 Pulse Source Pulse Oximeter Pulse Oximetry (%) 96 Oxygen Delivery Method Room Air Intake Visit Reasons: 1yr follow-up w/labs-Conf Cloth Washer Operator Required: No Accompanied by: Self / Same As Patient Allergies amoxicillin (AMOXICILLIN) Allergy (Severe, Verified 04/23/25 12:01) HIVES clarithromycin Allergy (Severe, Verified 04/23/25 12:01) HIVES erythromycin base (From ERYTHROCIN) Allergy (Severe, Verified 04/23/25 12:01) HIVES ibuprofen (IBUPROFEN) Allergy (Severe, Verified 04/23/25 12:01) ANAPHYLAXIS, difficulty breathing latex (LATEX) Allergy (Severe, Verified 04/23/25 12:01) HIVES levofloxacin (From LEVAQUIN) Allergy (Severe, Verified 04/23/25 12:01) HIVES NSAIDS (Non-Steroidal Anti-Inflamma (NSAIDS (NON-STEROIDAL ANTI-INFLAMMA) Allergy (Severe, Verified 04/23/25 12:01) ANAPHYLAXIS aspirin Allergy (Unknown, Verified 04/23/25 12:01) breathing difficulty azithromycin Allergy (Unknown, Verified 04/23/25 12:01) uncoded codeine (CODEINE) Allergy (Unknown, Verified 04/23/25 12:01) RASH naproxen (Aleve) Allergy (Unknown, Verified 04/23/25 12:01) throat closes up and itch nut - unspecified (NUTS) Allergy (Unknown, Verified 04/23/25 12:01) ANAPHYLAXIS sulfamethoxazole (From BACTRIM) Allergy (Unknown, Verified 04/23/25 12:01) HIVES trimethoprim (From BACTRIM) Allergy (Unknown, Verified 04/23/25 12:01) HIVES arythromycin Allergy (Unknown, Uncoded 12/30/24 13:45) uncoded HPI Comments Details: I had the pleasure of seeing Ivania in follow-up of her nephrolithiasis. She has not passed any stones since she had seen me last time. She has intermittent left flank pain( intermittent) & had USS which showed small one single stone. She does not have any flank pain, hematuria. She has no history of obstruction from renal stones. She has no history of lithotripsy, no history of hypercalcemia or high uric acid. She does not consume excess sodium or meat in the diet. She keeps up with good mount of fluid intake. Her renal functions have been normal. She has no history of Topamax intake, metabolic acidosis or hypokalemia. She has family history of renal stone disease(grandfather). Currently she feels well [facility] Medical History (Updated 04/23/25 @ 12:15 by Arturo Patterson MD) Kidney stones Vitamin D deficiency Right hip pain Hematuria Dysuria Lower back pain Trochanteric bursitis Neutropenia Hyperlipidemia FH: cholecystectomy Asthma Anxiety GERD (gastroesophageal reflux disease) Failed back syndrome Surgical History Hx of tonsillectomy Hx of cervical spine surgery History of ERCP History of esophagogastroduodenoscopy (EGD) H/O colonoscopy (~12/27/23) No pertinent past surgical history Family History Father CVD (cardiovascular disease) Diabetes mellitus Hx of CABG Mother HTN (hypertension) Hyperlipidemia Unknown family medical history Melanoma Social History Household Members: Spouse Housing: House Are you a primary cattle care worker to a significant other at home: No Do you presently have visiting nurse or other home services: No Alcohol intake: current Alcohol intake frequency: holidays/special occasions only Patient Tobacco Use Status: Never used Tobacco e-Cigarette/Vaping Use: Never Used service: No Current occupational status: retired Cognitive needs: No Hearing needs: No Vision needs: Yes Review of Systems Const All systems reviewed & are unremarkable except as noted in HPI and below Physical Exam Vital Signs: Last Vital Signs Pulse 76 04/23/25 12:01 BP 110/70 04/23/25 12:01 Pulse Ox 96 04/23/25 12:01 Oxygen Delivery Method Room Air 04/23/25 12:01 BMI result Body Mass Index 23.4 Const General: comfortable and no acute distress Orientation/consciousness: patient oriented x3 HEENT Head: Yes normocephalic Mouth: Normal oral and palatal mucosa present Eyes EOM: EOMs intact bilaterally Neck Neck: Yes supple Resp Auscultation: clear to auscultation bilaterally Cardio Jugular venous distension: no JVD Rate: regular rate GI Palpation (GI): Soft to palpation Auscultation: normal bowel sounds General: Yes no CVA tenderness Back/Spine/Pelvis Back: no CVA tenderness Skin General skin exam: no rashes or lesions noted Neuro General: patient oriented x3 and moves all extremities Extrem General: Yes no pedal edema Results Reviewed Nephrology Results: Hgb, (12.0-16.0) 15.1 g/dl 02/19/25 WBC, (4.8-10.8) 4.0 X10*3/uL L 02/19/25 Plt Count, (160-400) 151 X10*3/uL L 02/19/25 Sodium, (135-145) 137 mmol/L 02/19/25 Potassium, (3.3-5.1) 4.5 mmol/L 02/19/25 Chloride, (96-108) 105 mmol/L 02/19/25 Carbon Dioxide, (22-29) 23 mmol/L 02/19/25 BUN, (9-16) 23 mg/dL H 02/19/25 Creatinine, (0.5-1.4) 0.77 mg/dL 02/19/25 Calcium, (8.4-10.2) 9.0 mg/dL 11/19/24 Urine Protein, (Neg-Trace) Negative mg/dL 02/19/25 Renal US 03/21/25 Assessment & Plan Assessment & Plan (1) Kidney stones: Code(s): N20.0 - Calculus of kidney Category: Medical (2) Renal cyst: Code(s): N28.1 - Cyst of kidney, acquired Category: Medical Plan She has no active symptoms from nephrolithiasis. Her last imaging studies showed persistent renal calculi. She keeps up with good hydration and low-sodium in the diet. She takes more fruits and vegetables and does not consume excess meat in the diet. Her serum calcium has been normal. She add citrate in the fluid which she drinks. We discussed about follow-up renal ultrasound in one year. We agreed to do it in a year unless there are any symptoms. If she has ongoing issues with renal calculi, she is open to take HCTZ. She may need potassium citrate as well. Follow-up lab work ordered. Answered all questions. Coding Level of Care Code Est Pt Level 4 (09749) Diagnoses Kidney stones N20.0 Renal cyst N28.1
[2025-04-23 12:01] VITALS: BP 110/70; PULSE 76; O2SAT 96; BMI 23.4
--- OUTSIDE RECORDS SUMMARY | 2025-04-23 12:27 | XMS_ITS | Clinical Summary ---
Author Organization [facility] Address [address] [place] [address] [address] [address] Phone Care Team Providers Care Venetian Blind Cleaner Name Role Phone Neida James MD Primary [...] if needed 2 Active ergocalciferol 1.25 MG (76174 UT) capsule Take 50,000 Units by mouth [...] Cancer Screening: Sigmoidoscopy 2010 Influenza Vaccine (#1) 2025 Hepatitis B Vaccine Aged Out No longe r eligible based on patient's age to complete this topic Insurance [facility] Care Teams Venetian Blind Cleaner Relationship Specialty Start Date End Date Neida James MD 1960 [place] [address] PCP - General Internal Medicine 09/09/21
--- OUTSIDE RECORDS SUMMARY | 2025-04-23 12:27 | XMS_ITS | Patient Health Record ---
Author Organization [facility] Address [address] [place], [place] [id number] Care Team Providers Care Precision Market Insights Name Role Phone SIS PEDERSEN Unavailable [phone] Allergies Allergen (clinical drug ingredient) Drug/Non Drug [...] Insured Coverage Start Date Coverage End Date [facility] [address] [place] [address] [id number] DEBBI MAK Self - patient is the insured Medical (General) History Medical History History ICD Code kidney stones hyperlipidemia asthma Surgical History Surgery Date(Month/Year) gallbladder
--- OUTSIDE RECORDS SUMMARY | 2025-04-23 12:27 | XMS_ITS | Clinical Summary ---
Author Organization [facility] Address [address] [place] [address] Phone Care Team Providers Care Visual Education Director Name Role Phone Neida James MD Primary Care Provider [phone] Social History Tobacco Use Types Packs/Day Years Used Date Smoking Tobacco: Never Assessed Education Answer Date Recorded Are you interested in more education? Not on freeman e 08/30/2023 Are you concerned about learning? Not on file 08/30/2023 No 08/30/2023 No 08/30/2023 Digital Access Answer Date Recorded No 08/30/2023 No 08/30/2023 Reliable internet access at home? Not on file 08/30/2023 Device with a working camera? Not on file Comments Unknown Sex and Gender Information Value Date Recorded Sex Assigned at Not on file Legal Sex Female 1:53 PM EST Gender Identity Not on file Sexual Orientation Not on file Plan of Treatment Health Maintenance Due Date Last Done Comments Adult Td,Tdap Booster 1960 LIPID PANEL 1960 DEPRESSION SCREENING 1973 SMOKING Hx and SMOKELESS TOB ACCO SCREENING 1974 HEPATITIS C SCREENING 1979 HIV ONE-TIME SCREENING (18-6 5 YEARS) 1979 PAP SMEAR 1982 MAMMOGRAM 2001 COLOGUARD 2006 COLONOSCOPY 2006 COLORECTAL CANCER SCREENING 2006 FIT TEST 2006 FOBT 2006 SIGMOIDOSCOPY 2006 VIRTUAL COLONOSCOPY 2006 PNEUMOCOCCAL VACCINES (50+ y ears) (1 of 1 - PCV) 2011 ZOSTER VACCINES (1 of 2) 2011 COVID-19 VACCINE (2023-2 5 season) 2024 RSV VACCINE (1 - 1-dose 75+ series) 2036 HEPATITIS A VACCINES Aged Out No long er eligible based on patient's age to complete this topic HIB VACCINES Aged Out No longer eligi ble based on patient's age to complete this topic MENINGOCOCCAL VACCINES (ACWY) Aged Out No longer eligible based on patient's age to complete this topic MENINGOCOCCAL VACCINES (B) Aged Out N o longer eligible based on patient's age to complete this topic Medical Devices Not on file [place] [address] [address] [place] [address] [place] [address] [facility] Care Teams Visual Education Director Relationship Specialty Start Date End Date Neida James MD [address] [place] [address] PCP - General Internal Medicine 08/30/23 Additional Source Comments The information contained in this document represents components of the legal health record. It is not the complete legal health record.[facility]
== END 2025-04-23 12:21 | disposition home or self-care (01) ==
LOC: HO.HKA 11:28
PROVIDERS: PCP Internal Medicine; Visit Provider Internal Medicine Nephrology
DX: N20.0 Calculus of kidney (principal); N28.1 Cyst of kidney, acquired
CPT/HCPCS: 99214

== ENCOUNTER 2025-06-13 09:42 | Outpatient (REF) | payer BC, SELFPAY ==
--- NOTE | ~2025-06-13 | XR_ITS ---
EXAMINATION: XR SACRUM AND COCCYX CLINICAL INFORMATION: M53.3 - Sacrococcygeal disorders, not elsewhere classified COMPARISON: None available. TECHNIQUE: 2 views of the sacrum and 2 views of the coccyx were obtained. FINDINGS: The sacrum is moderately obscured by rectal stool on the AP views. There are no fractures. No bone, joint or soft tissue abnormality is demonstrated. XR/XR sacrum coccyx min 2V IMPRESSION: Unremarkable examination. Electronically signed by: Blanco Hernandez MD 06/13/2025 10:12 AM EDT
--- OUTSIDE RECORDS SUMMARY | 2025-06-13 10:53 | XMS_ITS | Patient Health Record ---
Author Organization [facility] Address [address] [place], [place] [address] Care Team Providers Care Textile Colorist Formulator Name Role Phone SIS PEDERSEN Unavailable [phone] Allergies Allergen (clinical drug ingredient) Drug/Non Drug [...] Insured Coverage Start Date Coverage End Date [facility] [address] [place] [address] [id number] DEBBI MAK Self - patient is the insured Medical (General) History Medical History History ICD Code kidney stones hyperlipidemia asthma Surgical History Surgery Date(Month/Year) gallbladder
--- OUTSIDE RECORDS SUMMARY | 2025-06-13 10:53 | XMS_ITS | Patient Health Record ---
Author Organization [facility] Address [address] [place] [address] Care Team Providers Care Group Dynamics Instructor Name Role Phone Neida James MD Primary Care Provider Unavaila Tu Grant Unavailable [phone] Riri Watson Unavailable Unavailable Allergies Allergen (clinical [...] Problem Status W/U Status Risk Notes Problem [id number] Colon cancer screening (Z12.11) Active confirmed Problem Diverticular disease of colon ([id number]) Diverticulosis of large intestine without perforation or abscess without bleeding (K57.30) Active confirmed Problem [id number] Preprocedural examination (Z01.818) Active confirmed Plan Of Treatment Future Test Test Name Order Date COLONOSCOPY 04/25/2013 COLONOSCOPY 02/07/2023 Insurance Providers Payer Name Payer Address Payer Phone Subscriber Number Group Number Insured Name Patient Relationship to Insured Coverage Start Date Coverage End Date [facility] [address] [place] [address] [id number] DEBBI MAK Self - patient is the insured Medical (General) History Medical History History ICD Code EGD [id number]--normal Asthma History of anxiety Hypoglycemia Denies [place],DM,CVA,renal disease Kidney stones Colonoscopy 2012 with only hyperplastic polyps Hyperlipidemia ERCP with a sphincterotomy by me in 2018 prior to a cholecystectomy Surgical History Surgery Date(Month/Year) Pilonidal cyst C-spine disk surgery Uterine ablation Tonsillectomy Cholecyst[place] [address] Radha garcia
--- OUTSIDE RECORDS SUMMARY | 2025-06-13 10:53 | XMS_ITS | Clinical Summary ---
Author Organization [facility] Address [address] [place] [address] Phone Care Team Providers Care Pitch Filler Name Role Phone Neida James MD Primary Care Provider [phone] Social History Tobacco Use Types Packs/Day Years [...] 2011 ZOSTER VACCINES (1 of 2) 2011 INFLUENZA VACCINE (#1) 2025 COVID-19 VACCINE ( - 2023-2 5 season) 2025 RSV VACCINE (1 - 1-dose 75+ series) [...] topic Medical Devices Not on file Insurance [employer] [place] [address] [place] [address] Care Teams Pitch Filler Relationship Specialty Start Date End Date Neida James MD 1960 [facility] [place] [address] PCP - General Internal Medicine 08/30/23 Additional Source Comments The information contained in this document represents components of the legal health record. It is not the complete legal health record.[facility]
--- OUTSIDE RECORDS SUMMARY | 2025-06-13 10:53 | XMS_ITS | Clinical Summary ---
Author Organization [facility] Address [address] [address] Phone Care Team Providers Care Medical Specialist Name Role Phone Neida James MD Primary [...] if needed 2 Active ergocalciferol 1.25 MG (93458 UT) capsule Take 50,000 Units by mouth [...] patient's age to complete this topic Insurance [facility] Care Teams Medical Specialist Relationship Specialty Start Date End Date Neida James MD [address] [place] [address] PCP - General Internal Medicine 09/09/21
== END 2025-06-13 09:43 | disposition home or self-care (01) ==
LOC: HO.HMGCX 09:42
PROVIDERS: PCP Internal Medicine; Visit Provider Internal Medicine
DX: M53.3 Sacrococcygeal disorders, not elsewhere classified (principal)
CPT/HCPCS: 72220

== ENCOUNTER → 2025-06-13 09:46 | Outpatient (BNV) | payer BC, SELFPAY | PROVIDERS: PCP Internal Medicine; Visit Provider Radiology Diagnostic Radiology | DX: M53.3 Sacrococcygeal disorders, not elsewhere classified (principal) | CPT/HCPCS: 72220 ==